=== PATIENT | female | born 1965 | race African-American/Black ===

== ENCOUNTER 2020-05-21 18:23 | Emergency (ER) | payer OTHER, MEDICARE ==
[~2020-05-21] VITALS: Ht 172.7 cm; Wt 97.5 kg
[2020-05-21] MEDS ORDERED: SODIUM CHLORIDE 0.9% 1000ML 1,000 ML IV STA (18:55)
[2020-05-21] MEDS ORDERED: FAMOTIDINE 20 MG/2 ML VIAL IV ONE (19:00)
[2020-05-21] MEDS ORDERED: ONDANSETRON HCL INJ 2MG/ML 2ML 2 MG/ML VIAL IV ONE (19:00)
--- NOTE | 2020-05-21 19:05 | NUR ---
PT STATED SHE WANTED DILAUDID OR KETAMINE INFUSION ONLY, DR GANT INFORMED PT THAT WE DO NOT CARRY THOSE DRUGS IN THIS ER, PT STATED SHE DID NOT WANT TO STAY THAT SHE ONLY WANTED THOSE TWO MEDICATIONS AND THAT SHE WOULD GO SOMEWHERE ELSE. WHEN PT WAS BEING DISCHARGED SHE ASKED IF WE COULD GIVE HER MORPHINE AND BENADRYL, I INFORMED PT THAT SHE HAD ALREADY TAKEN 2 BENADRYL AND 2 NORCO PRIOR TO COMING IN AND THAT IT WAS NOT IN HER BEST INTEREST SINCE SHE IS ALLERGIC TO MORPHINE, PT VERBALIZED UNDERSTANDING.
--- OUTSIDE RECORDS SUMMARY | 2020-05-21 19:30 | XMS REPORT | Clinical Summary ---
Author Author [facility] Organization [facility] Address Unknown Phone Unavailable Care Team Providers Care Pile Driving Setter Name Role Phone Mike Bull MD PCP Allergies Comments Active Allergy Reactions Severity Noted Date Aspirin 08/12/2017 Hypotension Droperidol Other (See 08/12/2017 Comments) Morphine 08/12/2017 Ketorolac 08/12/2017 Medications End Date Status Medication Sig Dispensed Refills Start Date Active lisinopril 0 (PRINIVIL,ZESTRIL) 5 mg 7 tablet Active clonIDINE (CATAPRES-TTS) 0 0.3 mg/24 hr 7 Active clonAZEPAM (KlonoPIN) 0 0.125 MG disintegrating 7 tablet Active LORAZepam (ATIVAN) 1 MG 0 tablet 7 Active metoprolol succinate XL 0 (TOPROL-XL) 100 mg 24 hr 7 tablet Active mirtazapine (REMERON) 30 0 MG tablet 7 Active oxyCODone-acetaminophen 0 (PERCOCET) 10-325 mg per 7 tablet Active potassium chloride 0 (K-DUR) 20 MEQ CR tablet 7 Active promethazine (PHENERGAN) 0 25 MG tablet 7 Active TiZANidine (ZANAFLEX) 6 0 MG capsule 7 Active zolpidem (AMBIEN) 5 MG 0 tablet 7 Active Problems Not on file Social History Date Tobacco Use Types Packs/Day Years Used Never Assessed Sex Assigned at Date Recorded Not on file Industry Job Start Date Occupation Not on file Not on file Not on file Travel End Travel History Travel Start No recent travel history available. Last Filed Vital Signs Not on file Plan of Treatment Health Maintenance Due Date Last Done Comments CERVICAL CANCER SCREENING 1986 BREAST CANCER SCREENING 2015 COLONOSCOPY SCREENING 2015 SHINGLES VACCINES (#1) 2015 INFLUENZA VACCINE 07/01/2020 Procedures Comments Procedure Name Priority Date/Time Associated Diag nosis T3 Routine 10/23/2019 Dyspnea 6:00 PM EAP COUNSELOR HCG QUALITATIVE, SERUM Routine 10/23/2019 Dyspnea SCREEN 6:00 PM EAP COUNSELOR LIPID PANEL Routine 10/23/2019 Dyspnea 6:00 PM EAP COUNSELOR THYROID STIMULATING Routine 10/23/2019 Dyspnea HORMONE 6:00 PM EAP COUNSELOR T4, FREE Routine 10/23/2019 Dyspnea 6:00 PM EAP COUNSELOR PHOSPHORUS LEVEL Routine 10/23/2019 Dyspnea 6:00 PM EAP COUNSELOR THYROID STIMULATING Routine 07/23/2019 Abdominal pain, HORMONE 5:30 PM CDT unspecified abdomin al location LIPID PANEL Routine 07/23/2019 Abdominal pain, 5:30 PM CDT unspecified abdominal location after 05/21/2019 Results * hCG qualitative, serum screen (10/23/2019 6:00 PM EAP COUNSELOR) hCG Negative [place] qualitative, YARSANISM [facility] Specimen Blood Performing Organization Address [facility] Ph one Number [facility] [place] [address] [address] [place], [place] [address] PATHOLOGY AND GENOMIC MEDICINE [place] [facility] [place] [address] [place] [address] [facility] * T3 (10/23/2019 6:00 PM EAP COUNSELOR) T3 110 80 - 200 ng/dL [facility] Specimen Plasma specimen Performing Organization Address City/State/Zipcode Ph one Number [facility] DEPARTMENT OF [address] [place] [address] PATHOLOGY AND GENOMIC MEDICINE [place] [id number] [place] [id number] [facility] * Thyroid stimulating hormone (10/23/2019 6:00 PM EAP COUNSELOR) Only the most recent of 2 results within the time period is included. TSH 1.25 0.27 - 4.20 uIU/mL [facility] Specimen Plasma specimen Performing Organization Address [facility] Ph one Number [facility] [place] [address] [place] [address] PATHOLOGY AND GENOMIC MEDICINE [facility] [address] [address] * T4, free (10/23/2019 6:00 PM EAP COUNSELOR) T4, free 0.83 (L) 0.90 - 1.70 ng/dL [facility] Specimen Plasma specimen Performing Organization Address [facility] Ph one Number [facility] [place] [id number] [place] [address] [place] [address] PATHOLOGY AND GENOMIC MEDICINE [facility] [id number] [place] [address] * Phosphorus level (10/23/2019 6:00 PM EAP COUNSELOR) Phosphorus 4.8 (H) 2.4 - 4.5 mg/dL [facility] Specimen Plasma specimen Performing Organization Address [facility] Ph one Number [facility] [place] [address] [address] [place] [phone] PATHOLOGY AND GENOMIC MEDICINE [address] * Lipid panel (10/23/2019 6:00 PM EAP COUNSELOR) Only the most recent of 2 results within the time period is included. Cholesterol 173 <200 mg/dL [facility] Triglycerides 122 (A) <150 mg/dL [facility] HDL cholesterol 59 >40 mg/dL [facility] LDL cholesterol 97Comment: Result obtained by <100 mg/dL [place] direct LDL measurement [facility] Lipid panel [facility] interpretation Comment: [facility] Total Cholesterol (mg/dL) [facility] <200 Desirable 200-239 Borderline-high >=240 High Triglycerides (mg/dL) <150 Normal 150-199 Borderline-high 200-499 High >=500 Very high HDL Cholesterol (mg/dL) <40 Low (male) <40 Low (female) LDL Cholesterol (mg/dL) <100 Optimal 100-129 Near or above optimal 130-159 Borderline-high 160-189 High >=190 Very high Risk Catergories that modify LDL goals. Risk Catergories LDL goal (mg/dL) CHD and CHD risk equivalent <100 (10-year risk >20%) Multiple (2+) risk factors <130 (10-year risk =<20%) 0-1 risk factors <160 (<10-year risk) Defining levels of lipids in metabolic syndrome Triglycerides >=150 mg/dL HDL Cholesterol Men <40 mg/dL Women <40 mg/dL Non-HDL cholesterol is a second target for therapy in persons with high triglycerides (>=200 mg/dL) Specimen Plasma specimen Performing Organization Address City/State/Zipcode Ph one Number [facility] [place] [address] [place] [address] PATHOLOGY [facility]IC [facility] [place] [address] [place] [address] [facility] after 05/21/2019 Insurance Type Payer Benefit Subscriber ID Effective Phone Address Plan / Dates Group Medicare MEDICARE MEDICARE xxxxxxxxxxx 2007-P MATA, PART A AND resent [place] B PPO [facility] xxxxxxxxx 2016-P THCARE resent COMMERCIAL HMO/POS/PP O Advance Directives For more information, please contact: [phone] Patient Practice Consultant Explanation Type Date Recorded Advance Directives, 08/12/2017 6:10 PM Living Will and Medical Power of Warehouse Receiver
--- OUTSIDE RECORDS SUMMARY | 2020-05-21 19:30 | XMS REPORT | Clinical Summary ---
Author Author [facility] Address Unknown Phone Unavailable Care Team Providers Care Manager Quality Improvement Name Role Phone PCP Unavailable Allergies Comments Active Allergy Reactions Severity Noted Date Rash,itching Aspirin Hives, Rash Low 12/04/2016 Hypotension Droperidol Other (See 12/04/2016 Comments) Rash,itching Ketorolac Hives 12/04/2016 Rash,itching Morphine Hives 08/12/2017 Medications End Date Status Medication Sig Dispensed Refills Start Date Active amLODIPine (NORVASC) 5 MG 0 tablet 9 Active lisinopril Take 20 mg by 0 (PRINIVIL,ZESTRIL) 20 MG mouth 2 (two) 9 tablet times daily . Active cloNIDine HCl (CATAPRES) Take 0.1 mg 0 02/01 0.1 MG tablet by mouth 2 9 (two) times daily . Active metoprolol (TOPROL-XL) 50 Take 50 mg by 0 05/0 4/201 MG 24 hr tablet mouth 2 (two) 9 times daily . Active oxyCODONE (ROXICODONE) 15 Take 15 mg by 0 05/2 2/201 MG immediate release mouth every 6 9 tablet (six) hours as needed . Active LORazepam (ATIVAN) 1 MG Take 1 mg by 0 tablet mouth 3 9 (three) times daily . Active potassium chloride 20 mEq daily . 0 / 0 TbER 9 Active promethazine (PHENERGAN) TK 1 T PO TID 0 02/20 25 MG tablet PRN NV 9 Active spironolactone Take 25 mg by 0 (ALDACTONE) 25 MG tablet mouth 2 (two) 9 times daily . Active tiZANidine (ZANAFLEX) 4 Take 4 mg by 0 02/19/ MG tablet mouth 4 9 (four) times daily . Active lidocaine (LIDODERM) 5 % 0 patch 9 Active clonazePAM (KLONOPIN) 1 Take 1 mg by 0 MG disintegrating tablet mouth 6 9 x/day. Active ergocalciferol (VITAMIN Take 50,000 0 D2) 50,000 unit capsule Units by mouth once a week. Active cholecalciferol, vitamin Take by 0 D3, 2,000 unit Cap mouth. Active LORazepam (ATIVAN) 0.5 MG Take 0.5 mg 0 tablet by mouth 3 (three) times daily. Active cyproheptadine Take by mouth 0 (PERIACTIN) 2 mg/5 mL every 8 syrup (eight) hours. Active diphenhydrAMINE Take 25 mg by 0 (BENADRYL) 25 mg capsule mouth every 6 (six) hours as needed for Itching. Active Problems Problem Noted Date Abnormal liver enzymes 02/26/2019 Last Assessment & Plan: The liver enzymes are abnormal in a mix ed pattern of injury with hepatocellular and cholestatic enzyme e levations. There are wide fluctuations of the liver enzymes noted over the last few months however the function of the liver remains intac t. A work up has rule out chronic hep B/C, preliminary testing otherwise was negative. We will complete the comprehensive work up today. Mixed pat terns of injury raise concern for medication vs autoimmune injuries. Rep eat of the autoimmune panels planned. Liver biopsy is recommended. Risks and benefits were discussed on the liver biopsy which is offered with sedation. The patient has requested general anesthesia. I also reviewed a case report of ketamine induced abnormal liver enzymes which is similar to her case. Of note, there were also bile duct changes noted on this ca se report which there is a focal area of bile duct abnormality noted on this patient in the common hepatic duct with enlargement. All reviewed wi th the patient. We will work to get more accurate information before and 12 hours after the ketamine injections she is receiving to determine if there is a drug reaction to this medication. Immunity status testing 02/26/2019 Last Assessment & Plan: Serological tests will be completed to determine the presence of immunity to hepatitis A and B. If the patient do es not have adequate immunity, we would recommend administration of appro priate vaccination as per CDC guidelines by the primary care provider . Hepatomegaly 02/26/2019 Last Assessment & Plan: Referred at this time with abnormal migdalia er enzymes. Hepatomegaly suggests a chronic liver disease. There was no ev idence of cirrhosis or advanced liver fibrosis. There is also no eviden ce of portal hypertension on the imaging. We offer a free fibroscan wit h her visit today as a noninvasive assessment for fibrosis and fat content . Liver biopsy is recommended for full assessment. Essential hypertension 02/26/2019 Chronic back pain 02/26/2019 Last Assessment & Plan: Counseling done on the likelihood that she may be taken off the ketamine for pain control. I have asked her to follow up with her pain management physician for treatment. Maximum acetam inophen dose in 24 hours should not exceed 2000 mg for now while we continu e her work up for underlying liver disease. 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 In review of case reports, this also can be seen with ketamine. Encounters Care Team Description Date Type Specialty Audelia Brush RN 01/26/2020 Abstract Hepatology Audelia Brush RN 01/23/2020 Abstract Hepatology Audelia Brush RN 01/20/2020 Abstract Hepatology after 05/21/2019 Family History Medical History Relation Name Comments Diabetes Mother Heart disease Mother Obesity Mother Cancer Sister breast Cancer Sister breast Relation Name Status Comments Mother Alive Sister breast Sister breast Alive Social History Date Tobacco Use Types Packs/Day Years Used Never Smoker Smokeless Tobacco: Never Used Alcohol Use Drinks/Week oz/Week Comments No Alcohol Habits Answer Date Recorded How often do you have a drink containing alcohol? Never 02/26/2019 How many drinks containing alcohol do you have on No t asked a typical day when you are drinking? How often do you have six or more drinks on one Not asked occasion? Sex Assigned at Date Recorded Not on file Industry Job Start Date Occupation Not on file Not on file Not on file Travel End Travel History Travel Start No recent travel history available. Last Filed Vital Signs Not on file Plan of Treatment Health Maintenance Due Date Last Done Comments BREAST CANCER SCREENING 1965 COLON CANCER SCREENING 1965 COLONOSCOPY MEDICARE ANNUAL WELLNESS 03/02/2008 (YEAR 2 or FIRST YEAR if no IPPE) INFLUENZA VACCINE (#1) 2020 LIPID PANEL 10/23/2022 10/23/2019, 017 Results Not on fileafter 05/21/2019 Insurance Payer Benefit Subscriber ID Type Phone Address Plan / Group [employer] - MGD UNITED HMO xxxxxxxxx HMO/PO S CARE POS SELECT CHOICE MEDICARE MEDICARE A xxxxxxxxxxx Medicare B [id number] Advance Directives For more information, please contact: [facility] [address] [place] [address] Date Inactivated Comments Code Status Date Activated 03/12/2019 10:22 PM Full Code 03/12/2019 4:49 PM This code status was determined by: Patient
--- OUTSIDE RECORDS SUMMARY | 2020-05-21 19:31 | XMS REPORT | Continuity of Care Document ---
Author Author Lyndon Sarnova, ANGELA Cline [employer] Address Unknown Phone Unavailable Care Team Providers Care Outpatient Psychiatrist Name Role Phone [employer] Unavailable Un available Problems Problem Status Onset Date Classification Date Reported Comments Source BACK PAIN Active 06/08/2019 [facility] SHORTNESS OF BREATH Active 03/25/2018 [facility] PALPITATIONS/HYPOKALEMIA/DYSPNEA Active 03/25/2018 [facility] CHEST PAIN Active 02/17/2018 [facility] HEART PALPITATIONS Active 02/17/2018 [facility] SYNCOPE Active 07/11/2017 [facility] VOMITING Active 05/18/2017 [facility] INTRACTABLE VOMITING Active 04/01/2017 [facility] CHEST PAIN VS EPIGASTRIC PAIN, HYPERTENS Active 12/27/2016 [facility] Wound packing material, device (physical object) Active 08/24/2010 [facility] [place] IV ASSESS-DIFFICULT IV START/BLOOD DRAWN(Confirmed) Active 10/01/1996 Problem 10/09/2014 [facility] Anemia (disorder) Active Problem 06/10/2019 [facility] [place],[facility] Chronic pain (finding) Resolved Problem 06/10/2019 [facility] Endocarditis (disorder) [facility] Problem 06/10/[facility] to organism (event) R esolved Problem 07/2019 [facility] Gastroparesis (disorder) Resol pilar Problem 07/2019 [facility] Hypertensive disorder, systemic arterial (disorder) Resolved Problem 06/10/2019 [facility] Irregular heart beat (finding) Resolved Problem 07/2019 [facility] Mitral valve prolapse (disorder) Active Problem 07/2019 [facility] 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) Active Problem 06/10/2019 [facility] [place],[facility] Wound care (procedure) Active Problem 06/10/2019 [facility] [place] Palpitations 02/22/2018 [facility] CHEST PAIN, UNSPECIFIED Active [facility] EPIGASTRIC PAIN Active [facility] NAUSEA WITH VOMITING, UNSPECIFIED Active [facility] VOMITING, UNSPECIFIED Active [facility] SYNCOPE AND COLLAPSE Active [facility] PALPITATIONS Active [facility] Medications Medication Details Route Status Patient Instructions Ordering Provider Order Date Source potassium chloride 20 mEq oral tablet, extended releas e Notes: (Same as: K-Dur 20) "Do Not Crush" For patients unable to swallow tablet, dissolve in one half glass of water. Allow about 2 minutes for the tablets to disintegrate. Stir before giving to prepare slurry and administer. Please exclude Patients with feeding tube less than 14 [place] (Dobhoff, J-tube etc) and pediatric and patients. With food and full glass of water Inactive 03/27/2018 [facility] Ativan Notes: (Same as: Ativan) Inactive 03/26/2018 [facility] heparin flush Notes: (Same as: Heparin Lock Flush) Inactive 03/26/2018 [facility] sodium chloride Notes: preserv ative free. Inactive 03/26/2018 [facility] Morphine Notes: (Same as:MORPh ine Sulfate) Inactive 03/26/2018 [facility] Morphine 12 mg, Route: PO, Taqueria g form: SOLN, Q6H, Dosing Weight 62.727, kg, PRN, Start date: 03/26/18 11:19:00 CDT, Duration: 1 day, Stop date: 03/27/18 11:18:00 CDT, Pain Score 8-10 Inactive 03/26/2018 [facility] Oxycodone Hydrochloride 5 MG Oral Tablet Notes: (Same as: Roxicodone) Inactive 03/26/2018 [facility] potassium chloride 20 mEq oral tablet, extended releas e 20 mEq = 1 tab, PO, Q12H, # 60 tab, 0 Refill(s), Pharmacy: [facility] [id number] Active 03/26/2018 [facility] pantoprazole 40 MG Enteric Coated Tablet [Protonix] 40 mg = 1 tab, PO, Daily, # 30 tab, 0 Refill(s), Pharmacy: [facility] [id number] Active 03/26/2018 [facility] ondansetron 4 mg oral tablet 4 mg = 1 tab, PO, Q6H, PRN Nausea & Vomiting, # 20 tab, 0 Refill(s), Pharmacy: [facility] [id number] Active 03/26/2018 [facility] Ambien Notes: (Same As: Ambien) Inactive 03/26/2018 [facility] Protonix Notes: Tablet should not be chewed or crushed. (Same as: Protonix) Inactive 03/26/2018 [facility] 24 HR Metoprolol Tartrate 200 MG Extende d Release Tablet [Toprol] Notes: (Same as: Toprol XL) May split t ab, but do not crush. Inactive 03/26/2018 [facility] Lisinopril Notes: (Same as: Pr inivil, Zestril) Inactive 03/26/2018 [facility] Klonopin Notes: (Same As: Klon oPIN) Inactive 03/26/2018 [facility] SENOKOT-S Notes: (Same as Seno vijay-S) Equiv. to Judie- Colace. Inactive 03/26/2018 [facility] Phenergan Notes: Do not give I V push. (Same as: Phenergan) Inactive 03/26/2018 [facility] Zanaflex Notes: (Same As: Oneil flex) Inactive 03/26/2018 [facility] 168 HR Clonidine 0.0125 MG/HR Transdermal Patch Notes: Patch delivers 0.3 mg/24 hours; Patch is applied weekly. [id number]. "Remove old patch before application of new patch" Inactive 03/26/2018 [facility] Lovenox Notes: (Same as: Loven ox) Inactive 03/26/2018 [facility] Klonopin Notes: (Same As: Klon oPIN) No Longer Active 03/26/2018 [facility] Benadryl Notes: (Same as: Jakin dryl) No Longer Active 03/26/2018 [facility] Morphine Notes: (Same as:MORPh ine Sulfate) No Longer Active 03/26/2018 [facility] Acetaminophen Notes: Do not ex ceed 4 gm/day. (Same as: Tylenol) No Longer Active 03/26/2018 [facility] Acetaminophen 325 MG / Hydrocodone Kiah trate 5 MG Oral Tablet Notes: (Same as: [place] 325/5) Do not ex ceed 4gm/day of acetaminophen. No Longer Active 03/26/2018 [facility] Ondansetron Notes: (Same as: Dereje bowden) No Longer Active 03/26/2018 [facility] Diphenhydramine 25 mg, Route: IVP, ONCE, Dosing Weight 62.727, kg, Priority: STAT, Start date: 03/25/18 20:05:00 CDT, Stop date: 03/25/18 20:05:00 CDT Inactive 03/26/2018 [facility] Morphine 2 mg, Route: IVP, ONC E, Dosing Weight 62.727, kg, Priority: STAT, Start date: 03/25/18 20:05:00 CDT, Stop date: 03/25/18 20:05:00 CDT Inactive 03/26/2018 [facility] Hydralazine Notes: (Same as: A presoline) Push over 5 minutes Inactive 03/25/2018 [facility] Phenergan Notes: Do not give I V push. (Same as: Phenergan) Inactive 03/25/2018 [facility] tizanidine 6 mg, Route: PO, ON CE, Dosing Weight 62.727, kg, Start date: 03/25/18 18:29:00 CDT, Stop date: 03/25/18 18:29:00 CDT Inactive 03/25/2018 [facility] Fentanyl 50 microgram, Route: IV, ONCE, Dosing Weight 62.727, kg, Start date: 03/25/18 18:20:00 CDT, Stop date: 03/25/18 18:20:00 CDT Inactive 03/25/2018 [facility] Fentanyl 50 microgram, Route: IV, ONCE, Dosing Weight 62.727, kg, Start date: 03/25/18 18:09:00 CDT, Stop date: 03/25/18 18:09:00 CDT Inactive 03/25/2018 [facility] Hydralazine 5 mg, Route: IV, O NCE, Dosing Weight 62.727, kg, Start date: 03/25/18 18:05:00 CDT, Stop date: 03/25/18 18:05:00 CDT Inactive 03/25/2018 [facility] Lisinopril 20 mg, Route: PO, D rug form: TAB, ONCE, Dosing Weight 62.727, kg, Start date: 03/25/18 18:05:00 CDT, Stop date: 03/25/18 18:05:00 CDT Inactive 03/25/2018 [facility] Acetaminophen 325 MG / Hydrocodone Kiah trate 10 MG Oral Tablet [[place] 10/325] 1 tab, Route: PO, Dosing Weight 62.727, kg, ONCE, Start date: 03/25/18 18:05:00 CDT, Stop date: 03/25/18 18:05:00 CDT Inactive 03/25/2018 [facility] Fentanyl 50 microgram, Route: IV, ONCE, Dosing Weight 62.727, kg, Start date: 03/25/18 17:29:00 CDT, Stop date: 03/25/18 17:29:00 CDT Inactive 03/25/2018 [facility] Fentanyl 50 microgram, Route: IVP, ONCE, Dosing Weight 62.727, kg, Priority: STAT, Start date: 03/25/18 16:32:00 CDT, Stop date: 03/25/18 16:32:00 CDT Inactive 03/25/2018 [facility] Potassium Chloride 1.33 MEQ/ML Oral Solution 20 mEq, 15 mL, Route: PO, Drug form: LIQ, ONCE, Dosing Weight 62.727, kg, Priority: STAT, Start date: 03/25/18 16:32:00 CDT, Stop date: 03/25/18 16:32:00 CDT Inactive 03/25/2018 [facility] Phenergan 12.5 mg, Route: IVPB , ONCE, Dosing Weight 62.727, kg, Priority: STAT, Start date: 03/25/18 16:31:00 CDT, Stop date: 03/25/18 16:31:00 CDT Inactive 03/25/2018 [facility] Zofran ODT 4 mg, Route: PO, Dr ug form: TABDIS, ONCE, Dosing Weight 62.727, kg, Priority: STAT, Start date: 03/25/18 16:11:00 CDT, Stop date: 03/25/18 16:11:00 CDT Inactive 03/25/2018 [facility] NS (Bolus) IV 1,000 mL, 1,000 ml/hr, Infuse Over: 1 hr, Route: IV, ONCE, Priority: STAT, Dosing Weight 62.727 kg, Start date: 03/25/18 16:10:00 CDT, Stop date: 03/25/18 16:10:00 CDT Inactive 03/25/2018 [facility] metoprolol extended release 20 0 mg, Route: PO, Drug form: ERTAB, ONCE, Start date: 03/25/18 15:48:00 CDT, Stop date: 03/25/18 15:48:00 CDT Inactive 03/25/2018 [facility] potassium chloride 20 mEq oral tablet, extended releas e Notes: (Same as: K-Dur 20) "Do Not Crush" For patients unable to swallow tablet, dissolve in one half glass of water. Allow about 2 minutes for the tablets to disintegrate. Stir before giving to prepare slurry and administer. Please exclude Patients with feeding tube less than 14 [place] (Dobhoff, J-tube etc) and pediatric and patients. With food and full glass of water Inactive 02/20/2018 [facility] heparin flush Notes: (Same as: Heparin Lock Flush) Inactive 02/19/2018 [facility] Thiamine Notes: (Same As: Audelia min B1) Inactive 02/19/2018 [facility] potassium chloride 20 mEq oral tablet, extended releas e 20 mEq = 1 tab, PO, Q12H, # 60 tab, 0 Refill(s), Pharmacy: [facility] [place] [id number] Active 02/19/2018 [facility] 168 HR Clonidine 0.0125 MG/HR Transdermal Patch Notes: Patch delivers 0.3 mg/24 hours; Patch is applied weekly. [id number]. "Remove old patch before application of new patch" Inactive 02/19/2018 [facility] pantoprazole 40 MG Enteric Coated Tablet [Protonix] 40 mg = 1 tab, PO, Daily, # 30 tab, 0 Refill(s), Pharmacy: [place] [id number] Active 02/19/2018 [facility] Promethazine Hydrochloride 12.5 MG Oral Tablet [Phenergan] 12.5 mg, PO, Q6H, PRN Nausea & Vomiting, # 28 tab, 0 Refill(s), Pharmacy: [place] [id number] Active 02/19/2018 [facility] thiamine 100 mg oral tablet 10 0 mg, PO, Daily, # 100 tab, 0 Refill(s), Pharmacy: [place] [id number] No Longer Active 02/19/2018 [facility] Erythromycin Ethylsuccinate 40 MG/ML Oral Suspension 200 mg = 5 mL, PO, BID, # 300 mL, 0 Refill(s), Pharmacy: [place] [id number] No Longer Active 02/19/2018 [facility] Phenergan Notes: (Same as: Phe nergan) Inactive 02/19/2018 [facility] Pepcid Notes: (Same as: Pepcid) Inactive 02/19/2018 [facility] Lisinopril Notes: (Same as: Pr inivil, Zestril) Inactive 02/19/2018 [facility] Protonix Notes: Tablet should not be chewed or crushed. (Same as: Protonix) No Longer Active 02/19/2018 [facility] metoprolol tartrate Notes: (Sa me as: Lopressor) No Longer Active 02/19/2018 [facility] Erythromycin Notes: (Same as: E.E.S.-400) No Longer Active 02/19/2018 [facility] Pepcid Notes: (Same as: Pepcid ) Can be dilute in 5-10cc NS IVP: Slow IV push over at least 2 minutes. No Longer Active 02/19/2018 [facility] Klonopin Notes: (Same As: Klon oPIN) No Longer Active 02/19/2018 [facility] Reglan Notes: (Same as: Reglan) No Longer Active 02/18/2018 [facility] Potassium Chloride Notes: MUST be Diluted before use (Same as: KCl) MEDICATION WASTE Product Size: 40 mEq Product Wasted: ___ mEq Inactive 02/18/2018 [facility] Klonopin Notes: (Same As: Klon oPIN) No Longer Active 02/18/2018 [facility] Zanaflex Notes: (Same As: Oneil flex) No Longer Active 02/18/2018 [facility] D5W 1/2NS + KCL 20mEq/L 1000ml (Premix) 1,000 mL Notes: PREMIX IV - Do Not Alter WASTE: F/P - Sink; E - Municipal Trash Bin No Longer Active 02/18/2018 [facility] Potassium Chloride Notes: MUST be Diluted before use (Same as: KCl) MEDICATION WASTE Product Size: 40 mEq Product Wasted: ___ mEq Inactive 02/18/2018 [facility] Benadryl Notes: (Same as: Jakin dryl) No Longer Active 02/18/2018 [facility] Phenergan Notes: Do not give I V push. (Same as: Phenergan) No Longer Active 02/18/2018 [facility] zolpidem Notes: (Same As: Ambi en) No Longer Active 02/18/2018 [facility] Reglan Notes: (Same as: Reglan) No Longer Active 02/18/2018 [facility] Benadryl 25 mg, 1 tab, Route: PO, Drug form: TAB, Q6H, Dosing Weight 67.273, kg, PRN as needed for itching, Start date: 02/18/18 9:30:00 CDT, Duration: 30 day, Stop date: 03/20/18 9:29:00 CDT No Longer Active 02/18/2018 [facility] Morphine 2 mg, 1 mL, Route: IV , Drug form: SOLN, Q4H, Dosing Weight 67.273, kg, PRN Pain Score 6-10, Start date: 02/18/18 9:30:00 CDT, Stop date: 03/20/18 9:29:00 CDT No Longer Active 02/18/2018 [facility] Ambien 10 mg, Route: PO, Drug form: TAB, Bedtime, Dosing Weight 67.273, kg, PRN Sleep, Start date: 02/18/18 9:15:00 CDT, Duration: 30 day, Stop date: 03/20/18 9:14:00 CDT Inactive 02/18/2018 [facility] Saline Flush 0.9% Notes: (Same as: BD Posiflush) No Longer Active 02/18/2018 [facility] K-Dur 20 Notes: (Same as: K-Du r 20) "Do Not Crush" For patients unable to swallow tablet, dissolve in one half glass of water. Allow about 2 minutes for the tablets to disintegrate. Stir before giving to prepare slurry and administer. Please exclude Patients with feeding tube less than 14 [place] (Dobhoff, J-tube etc) and pediatric and patients. With food and full glass of water Inactive 02/18/2018 [facility] Potassium Chloride 40 mEq, Rou te: IV, ONCE, Dosing Weight 67.273, kg, Start date: 02/18/18 2:16:00 CDT, Stop date: 02/18/18 2:16:00 CDT Inactive 02/18/2018 [facility] Benadryl Notes: (Same as: Jakin dryl) Inactive 02/18/2018 [facility] Phenergan Notes: Do not give I V push. (Same as: Phenergan) Inactive 02/18/2018 [facility] morphine Sulfate 2 mg, 1 mL, R oute: IVP, Drug form: SOLN, ONCE, Dosing Weight 67.273, kg, Start date: 02/18/18 0:32:00 CDT, Stop date: 02/18/18 0:32:00 CDT Inactive 02/18/2018 [facility] Morphine Notes: Preservative f ree. (Same as: Morphine Sulfate-PF) Inactive 02/18/2018 [facility] NS (Bolus) IV 500 mL, 500 ml/h r, Infuse Over: 1 hr, Route: IV, 500, Drug form: INJ, ONCE, Priority: STAT, Dosing Weight 67.273 kg, Start date: 02/17/18 23:31:00 CDT, Stop date: 02/17/18 23:31:00 CDT No Longer Active 02/18/2018 [facility] Magnesium Oxide Notes: (Same a s: Mag-Ox 400) Magnesium oxide [id number] elemental magnesium Dose=____mg magnesium oxide (___mg elemental magnesium) No Longer Active 02/18/2018 [facility] Magnesium Sulfate Notes: WASTE : F/P - Sink; E - Municipal Trash Bin No Longer Active 02/18/2018 [facility] Calcium Gluconate Notes: WASTE : F/P - Sink; E - Municipal Trash Bin No Longer Active 02/18/2018 [facility] potassium phosphate Notes: ([facility] as: K Phosphate.) 1 mMol phoshate has 1.47 mEq potassium Infuse over 4 hours No Longer Active 02/18/2018 [facility] sodium phosphate 15 mmol, 5 mL , Route: IVPB, PRN, Dosing Weight 67.273, kg, PRN Abnormal Lab Result, For NON-ICU Patients Only., Start date: 02/17/18 23:28:00 CDT, Duration: 30 day, Stop date: 03/19/18 23:27:00 CDT No Longer Active 02/18/2018 [facility] potassium phosphate-sodium phosphate 250 mg-280 mg-160 mg oral powder for reconstitution Notes: (Same as: Phos-NaK) Each 1.5 gm pkt has 250mg phosphorous. Mix w/2.5oz water and stir. No Longer Active 02/18/2018 [facility] Potassium Chloride Notes: (Godwin e as: Potassium Chloride) No Longer Active 02/18/2018 [facility] Saline Flush 0.9% Notes: (Same as: BD Posiflush) No Longer Active 02/18/2018 [facility] Sodium Chloride 0.9% IV 1,000 mL 1,000 mL, Rate: 100 ml/hr, Infuse over: 10 hr, Route: IV, Dosing Weight 67.273 kg, Total Volume: 1,000, Start date: 02/17/18 23:26:00 CDT, Duration: 30 day, Stop date: 03/19/18 23:25:00 CDT, 1.81, m2 No Longer Active 02/18/2018 [facility] Nitroglycerin Notes: (Same as: Nitroquick, Nitrostat) "Do Not Crush" Sublingual tablet No Longer Active 02/18/2018 [facility] Ondansetron Notes: (Same as: Z ofran) No Longer Active 02/18/2018 [facility] metoprolol tartrate Notes: (Sa me as: Lopressor) No Longer Active 02/18/2018 [facility] Zolpidem tartrate 10 MG Oral Tablet [Ambien] 10 mg = 1 tab, PO, Bedtime, PRN for sleep, 0 Refill(s) Active 02/18/2018 [facility] Clonazepam 0.5 MG Oral Tablet [Klonopin] 1 mg = 2 tab, PO, Bedtime, # 30 tab, 0 Refill(s) Active 02/18/2018 [facility] oxyCODONE 15 mg oral tablet 15 mg = 1 tab, PO, Q6H, PRN Pain, 0 Refill(s) Active 02/18/2018 [facility] Benadryl 25 mg, Route: IVP, ON CE, Dosing Weight 63.636, kg, Priority: STAT, Start date: 02/17/18 18:53:00 CDT, Stop date: 02/17/18 18:53:00 CDT Inactive 02/17/2018 [facility] Morphine 4 mg, Route: IVP, ONC E, Dosing Weight 63.636, kg, Priority: STAT, Start date: 02/17/18 18:52:00 CDT, Stop date: 02/17/18 18:52:00 CDT Inactive 02/17/2018 [facility] Phenergan 25 mg, Route: IM, ON CE, Dosing Weight 63.636, kg, Priority: STAT, Start date: 02/17/18 18:52:00 CDT, Stop date: 02/17/18 18:52:00 CDT Inactive 02/17/2018 [facility] Potassium Chloride 1.33 MEQ/ML Oral Solution 40 mEq, 15 mL, Route: PO, Drug form: LIQ, ONCE, Dosing Weight 63.636, kg, Priority: STAT, Start date: 02/17/18 17:26:00 CDT, Stop date: 02/17/18 17:26:00 CDT Inactive 02/17/2018 [facility] Morphine 4 mg, Route: IVP, ONC E, Dosing Weight 63.636, kg, Priority: STAT, Start date: 02/17/18 17:05:00 CDT, Stop date: 02/17/18 17:05:00 CDT Inactive 02/17/2018 [facility] Benadryl 25 mg, Route: IVP, ON CE, Dosing Weight 63.636, kg, Priority: STAT, Start date: 02/17/18 17:04:00 CDT, Stop date: 02/17/18 17:04:00 CDT Inactive 02/17/2018 [facility] Fentanyl Notes: (Same as: Subl imaze) Preservative free. Inactive 02/17/2018 [facility] Promethazine 12.5 mg, Route: I M, ONCE, Dosing Weight 63.636, kg, Priority: STAT, Start date: 02/17/18 17:01:00 CDT, Stop date: 02/17/18 17:01:00 CDT Inactive 02/17/2018 [facility] Acetaminophen 325 MG / Hydrocodone Kiah trate 10 MG Oral Tablet [[place] 10/325] 1 tab, Route: PO, Drug Form: TAB, Dosing Weight 63.636, kg, ONCE, STAT, Start date: 02/17/18 17:00:00 CDT, Stop date: 02/17/18 17:00:00 CDT Inactive 02/17/2018 [facility] Metoclopramide 10 mg, Route: I [employer], Drug form: INJ, ONCE, Dosing Weight 63.636, kg, Priority: STAT, Start date: 02/17/18 17:00:00 CDT, Stop date: 02/17/18 17:00:00 CDT Inactive 02/17/2018 [facility] Sodium Chloride 0.9% (Bolus) IV 1,000 mL, 1000 ml/hr, Infuse Over: 1 hr, Route: IV, 1,000, Drug form: INJ, ONCE, Priority: STAT, Dosing Weight 63.636 kg, Start date: 02/17/18 16:15:00 CDT, Stop date: 02/17/18 16:15:00 CDT Inactive 02/17/2018 [facility] Saline Flush 0.9% Notes: (Same as: BD Posiflush) No Longer Active 02/17/2018 [facility] Protonix Notes: Tablet should not be chewed or crushed. (Same as: Protonix) No Longer Active 07/13/2017 [facility] Trazodone Hydrochloride 50 MG Oral Tablet Notes: (Same As: Desyrel) Inactive 07/13/2017 [facility] heparin flush Notes: (Same as: Heparin Lock Flush) Inactive 07/12/2017 [facility] sodium chloride Notes: preserv ative free. Inactive 07/12/2017 [facility] sodium chloride Notes: preserv ative free. Inactive 07/12/2017 [facility] Metoclopramide 5 MG Oral Tablet [Reglan] 5 mg = 1 tab, PO, Before Meals & Bedtime, X 14 day, # 56 tab, 0 Refill(s), Pharmacy: [facility] [place] [id number] Active 07/12/2017 [facility] Zanaflex Notes: (Same As: Oneil flex) Inactive 07/12/2017 [facility] Potassium Chloride Notes: (Godwin e as: KCL) Infuse no faster than 10 mEq/hr if given peripherally. Inactive 07/12/2017 [facility] Metoclopramide 5 MG Oral Tablet [Reglan] Notes: (Same as: Reglan) Take 30 min before meals Inactive 07/12/2017 [facility] metoprolol extended release No may: (Same as: Toprol XL) Do Not Crush Inactive 07/12/2017 [facility] Lisinopril Notes: (Same as: Pr inivil, Zestril) Inactive 07/12/2017 [facility] Tylenol Notes: Do not exceed 4 gm/day. (Same as: Tylenol) Inactive 07/12/2017 [facility] Roxicodone Notes: (Same as: Ro xicodone) Inactive 07/12/2017 [facility] Oxycontin Notes: Do not crush or chew. 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 07/12/2017 [facility] Ativan Notes: (Same as: Ativan) Inactive 07/12/2017 [facility] Hydromorphone 1 mg, 1 mL, Rout e: IVP, Drug form: INJ, ONCE, Dosing Weight 65, kg, Priority: STAT, Start date: 07/12/17 9:15:00 CDT, Stop date: 07/12/17 9:15:00 CDT Inactive 07/12/2017 [facility] influenza virus vaccine, inactivated Notes: (Same as: Fluzone Quadrivalent, Fluarix Quadrivalent) For 3 years of age and older (0.5 mL IM) Shake well before use Inactive 07/12/2017 [facility] Dilaudid 0.5 mg, 0.5 mL, Route : IVP, Drug form: INJ, Q3H, Dosing Weight 65, kg, PRN Pain Score 7-10, Start date: 07/12/17 0:43:00 CDT, Duration: 30 day, Stop date: 08/11/17 0:42:00 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 Inactive 07/12/2017 [facility] Calcium Gluconate Notes: WASTE : F/P - Sink; E - Municipal Trash Bin Inactive 07/12/2017 [facility] sodium phosphate 30 mmol, 10 m L, Route: IVPB, PRN, Dosing Weight 65, kg, PRN Abnormal Lab Result, For NON-ICU Patients Only., Start date: 07/12/17 0:42:00 CDT, Duration: 30 day, Stop date: 08/10/17 23:41:00 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 Inactive 07/12/2017 [facility] Magnesium Oxide Notes: (Same a s: Mag-Ox 400) Magnesium oxide [id number] elemental magnesium Dose=____mg magnesium oxide (___mg elemental magnesium) Inactive 07/12/2017 [facility] Magnesium Sulfate Notes: WASTE : F/P - Sink; E - Municipal Trash Bin Inactive 07/12/2017 [facility] Potassium Chloride Notes: ([facility] e as: Potassium Chloride) Inactive 07/12/2017 [facility] potassium phosphate Notes: ([facility] as: K Phosphate.) 1 mMol phoshate has 1.47 mEq potassium Infuse over 4 hours Inactive 07/12/2017 [facility] potassium phosphate-sodium phosphate 250 mg-280 mg-160 mg oral powder for reconstitution Notes: (Same as: Phos-NaK) Each 1.5 gm pkt has 250mg phosphorous. Mix w/2.5oz water and stir. Inactive 07/12/2017 [facility] Saline Flush 0.9% Notes: (Same as: BD Posiflush) Inactive 07/12/2017 [facility] sodium chloride 0.9% 1000 ml INJ 1,000 mL 1,000 mL, Rate: 150 ml/hr, Infuse over: 6.7 hr, Route: IV, Dosing Weight 65 kg, Total Volume: 1,000, Start date: 07/12/17 0:36:00 CDT, Stop date: 07/13/17 2:30:00 CDT Inactive 07/12/2017 [facility] Acetaminophen 325 MG / Hydrocodone Kiah trate 5 MG Oral Tablet Notes: (Same as: [place] 325/5) Do not ex ceed 4gm/day of acetaminophen. Inactive 07/12/2017 [facility] Ondansetron Notes: (Same as: Dereje bowden) MEDICATION WASTE Product Size: 4 mg Product Wasted: ___ mg Inactive 07/12/2017 [facility] Remeron Notes: (Same as:Remero n) Inactive 05/20/2017 [facility] metoprolol tartrate Notes: ([facility] as: Toprol XL) May split tab, but do not crush. Inactive 05/20/2017 [facility] heparin Notes: (Same as: Hepar in Lock Flush) Inactive 05/19/2017 [facility] Protonix 40 mg, 1 tab, Route: PO, Drug form: ECTAB, Before Dinner, Dosing Weight 61.364, kg, Start date: 05/19/17 16:30:00 CDT, Duration: 30 day, Stop date: 06/17/17 16:30:00 CDT Inactive 05/19/2017 [facility] Zanaflex Notes: (Same As: Oneil flex) Inactive 05/19/2017 [facility] Spironolactone Notes: (Same As : Aldactone) Inactive 05/19/2017 [facility] Lisinopril Notes: (Same as: Pr inivil, Zestril) Inactive 05/19/2017 [facility] Norvasc Notes: (Same as: Norva sc) Inactive 05/19/2017 [facility] 168 HR Clonidine 0.0125 MG/HR Transdermal Patch 1 patch, Route: TOP, Drug Form: ERFILM, Dosing Weight 61.364, kg, qWeek, Start date: 05/19/17 13:39:00 CDT, Duration: 30 day, Stop date: 06/16/17 9:00:00 CDT Inactive 05/19/2017 [facility] Ativan Notes: (Same as: Ativan) Inactive 05/19/2017 [facility] Potassium Chloride Notes: Infu se at a rate of 10 mEq/hr. (Same as: KCL) Inactive 05/19/2017 [facility] potassium chloride 20 mEq oral tablet, extended releas e Notes: (Same as: K-Dur 20) "Do Not Crush" With food and full glass of water Inactive 05/19/2017 [facility] Potassium Chloride Notes: ([facility] e as: K-Dur 20) "Do Not Crush" With food and full glass of water Inactive 05/19/2017 [facility] Phenergan Notes: Do not give I V push. (Same as: Phenergan) No Longer Active 05/18/2017 [facility] Lorazepam 1 MG Oral Tablet [Ativan] 1 mg = 1 tab, PO, TID, PRN as needed for anxiety, 0 Refill(s) Active 05/18/2017 [facility] Spironolactone 12.5 mg, PO, Da erlinda, # 60 tab, 0 Refill(s) Active 05/18/2017 [facility] Acetaminophen 325 MG / Oxycodone Hydroch loride 10 MG Oral Tablet [Percocet 10/325] 1 tab, PO, Q8H, PRN Pain Score 6-10, 0 R efill(s) Active 05/18/2017 [facility] Amlodipine 10 MG Oral Tablet [Norvasc] 10 mg = 1 tab, PO, Daily, 0 Refill(s) Active 05/18/2017 [facility] Mirtazapine 30 MG Oral Tablet [Remeron] 30 mg = 1 tab, PO, Bedtime, 0 Refill(s) Activ e 05/18/2017 [facility] Hydrochlorothiazide See Instru ctions, 12.5 mg PO twice week, 0 Refill(s) Active 05/18/2017 [facility] Oxycontin 20 mg, PO, Q12H, PRN Pain Score 6-10, 0 Refill(s) Active 05/18/2017 [facility] sodium chloride 0.9% 1000 ml INJ 1,000 mL 1,000 mL, Rate: 125 ml/hr, Infuse over: 8 hr, Route: IV, Dosing Weight 61.364 kg, Total Volume: 1,000, Start date: 05/18/17 16:34:00 CDT, Duration: 30 day, Stop date: 06/17/17 16:33:00 CDT No Longe r Active 05/18/2017 [facility] Ondansetron Notes: (Same as: Dereje bowden) MEDICATION WASTE Product Size: 4 mg Product Wasted: ___ mg No Longer Active 05/18/2017 [facility] Acetaminophen 325 MG / Hydrocodone Kiah trate 5 MG Oral Tablet Notes: (Same as: [place] 325/5) Do not ex ceed 4gm/day of acetaminophen. No Longer Active 05/18/2017 [facility] Acetaminophen Notes: Max aceta minophen = 4000 mg/day (4 gm/day). (Same as: Tylenol) N o Longer Active 05/18/2017 [facility] Dilaudid 1 mg, 1 mL, Route: IV P, Drug form: INJ, Q4H, Dosing Weight 61.364, kg, PRN Pain Score 7-10, Start date: 05/18/17 16:34:00 CDT, Duration: 30 day, Stop date: 06/17/17 16:33:00 CDT No Longer Active 05/18/2017 [facility] sodium chloride Notes: preserv ative free. Inactive 04/04/2017 [facility] heparin flush Notes: (Same as: Heparin Lock Flush) Inactive 04/04/2017 [facility] potassium chloride Notes: Infu se at a rate of 10 mEq/hr. (Same as: KCL) Inactive 04/03/2017 [facility] potassium chloride Notes: ([facility] e as: K-Dur 20) "Do Not Crush" With food and full glass of water Inactive 04/03/2017 [facility] potassium chloride Notes: Infu se at a rate of 10 mEq/hr. (Same as: KCL) Inactive 04/02/2017 [facility] potassium chloride 20 mEq, Rou te: IV, ONCE, Dosing Weight 61.364, kg, Start date: 04/02/17 11:03:00 CDT, Stop date: 04/02/17 11:03:00 CDT Inactive 04/02/2017 [facility] potassium chloride Notes: ([facility]win e as: K-Dur 20) "Do Not Crush" With food and full glass of water Inactive 04/02/2017 [facility] Trazodone Hydrochloride 50 MG Oral Tablet Notes: (Same As: Renny) No Longer Active 04/02/2017 [facility] Dilaudid 1 mg, 1 mL, Route: IV P, Drug form: INJ, Q3H, Dosing Weight 61.364, kg, PRN Pain Score 7-10, Start date: 04/01/17 16:18:00 CDT, Duration: 30 day, Stop date: 05/01/17 16:17:00 CDT No Longer Active 04/01/2017 [facility] sodium chloride 0.9% 1000 ml INJ 1,000 mL 1,000 mL, Rate: 100 ml/hr, Infuse over: 10 hr, Route: IV, Dosing Weight 61.364 kg, Total Volume: 1,000, Start date: 04/01/17 14:31:00 CDT, Duration: 30 day, Stop date: 05/01/17 14:30:00 CDT No Longe r Active 04/01/2017 [facility] Sodium Chloride 0.154 MEQ/ML Injectable Solution 984.8 mL, Rate: 100 ml/hr, Infuse over: 9.8 hr, Route: IV, Dosing Weight 61.364 kg, Total Volume: 984.8, Start date: 04/01/17 14:03:00 CDT, Duration: 1 doses or times, Stop date: 04/01/17 23:50:00 CDT Inactive 04/01/2017 [facility] Dilaudid 1 mg, 1 mL, Route: IV P, Drug form: INJ, Q2H, Dosing Weight 61.364, kg, PRN Pain Score 7-10, Start date: 04/01/17 13:55:00 CDT, Duration: 30 day, Stop date: 05/01/17 13:54:00 CDT Inactive 04/01/2017 [facility] Sodium Chloride 0.154 MEQ/ML Injectable Solution 984.8 mL, Rate: 100 ml/hr, Infuse over: 10 hr, Route: IV, Dosing Weight 61.364 kg, Total Volume: 1,000, Priority: NOW, Start date: 04/01/17 13:42:00 CDT, Duration: 3 doses or times, Stop date: 04/02/17 19:41:00 CDT No Longer Active 04/01/2017 [facility] Zanaflex Notes: (Same As: Oneil flex) No Longer Active 04/01/2017 [facility] Protonix Notes: Tablet should not be chewed or crushed. (Same as: Protonix) No Longer Active 04/01/2017 [facility] Phenergan Notes: (Same as: Phe nergan) No Longer Active 04/01/2017 [facility] Lisinopril Notes: (Same as: Pr inivil, Zestril) No Longer Active 04/01/2017 [facility] metoprolol tartrate Notes: (Sa me as: Toprol XL) May split tab, but do not crush. N o Longer Active 04/01/2017 [facility] digoxin 125 mcg (0.125 mg) oral tablet Notes: Take on an Empty Stomach (Same as: Lanoxin) No Longer Active 04/01/2017 [facility] Amlodipine Notes: (Same as: No rvasc) No Longer Active 04/01/2017 [facility] Clonidine Hydrochloride 0.1 MG Oral Tablet Notes: (Same As: Catapres) No Longer Active 04/01/2017 [facility] Acetaminophen 300 MG / Codeine Phosphate 60 MG Oral Tablet [Tylenol with Codeine #4] Notes: Do not exceed 4gm/day of acetamin ophen. (Same as: Tylenol with Codeine # 4) No Longer Active 04/01/2017 [facility] Hydralazine Notes: (Same as: A presoline) Push over 5 minutes No Longer Active 04/01/2017 [facility] NS + KCL 20mEq/L 1000ml (Premix) 1,000 mL Notes: PREMIX IV - Do Not Alter WASTE: F/P - Sink; E - Municipal Trash Bin Inactive 04/01/2017 [facility] Reglan Notes: (Same as: Reglan ) Take 30 min before meals No Longer Active 04/01/2017 [facility] Phenergan Notes: Do not give I V push. (Same as: Phenergan) No Longer Active 04/01/2017 [facility] Dilaudid 1 mg, 1 mL, Route: IV P, Drug form: INJ, Q3H, Dosing Weight 61.364, kg, PRN Pain Score 7-10, Start date: 04/01/17 2:24:00 CDT, Duration: 30 day, Stop date: 05/01/17 2:23:00 CDT Inactive 04/01/2017 [facility] Ondansetron Notes: (Same as: Dereje bowden) MEDICATION WASTE Product Size: 4 mg Product Wasted: ___ mg No Longer Active 04/01/2017 [facility] Lactated Ringers 1,000 mL 1,00 0 mL, Rate: 125 ml/hr, Infuse over: 8 hr, Route: IV, Dosing Weight 61.364 kg, Total Volume: 1,000, Start date: 04/01/17 2:22:00 CDT, Duration: 30 day, Stop date: 05/01/17 2:21:00 CDT Inactive 04/01/2017 [facility] Saline Flush 0.9% Notes: (Same as: BD Posiflush) No Longer Active 04/01/2017 [facility] Hydromorphone 2 mg, 2 mL, Rout e: IV, Drug form: INJ, ONCE, Dosing Weight 61.364, kg, Start date: 04/01/17 1:43:00 CDT, Stop date: 04/01/17 1:43:00 CDT Inactive 04/01/2017 [facility] Phenergan Notes: Do not give I V push. (Same as: Phenergan) Inactive 04/01/2017 [facility] heparin, porcine Notes: (Same as: Heparin Lock Flush) Inactive 12/29/2016 [facility] pantoprazole 40 MG Enteric Coated Tablet [Protonix] 40 mg = 1 tab, PO, Daily, # 30 tab, 0 Refill(s) Active 12/29/2016 [facility] digoxin 125 mcg (0.125 mg) oral tablet 0.125 mg, PO, Daily, # 30 tab, 0 Refill(s) Active 12/29/2016 [facility] Clonidine Hydrochloride 0.1 MG Oral Tablet 0.1 mg = 1 tab, PO, PRN, PRN Hypertension, # 30 tab, 0 Refill(s) Active 12/29/2016 [facility] amLODIPine 5 mg oral tablet 5 mg = 1 tab, PO, Daily, # 30 tab, 0 Refill(s) Active 12/29/2016 [facility] Zofran 8 mg, Route: IV, Q8H, D osing Weight 68.182, kg, PRN Nausea, Start date: 12/29/16 11:20:00 CDT, Duration: 30 day, Stop date: 01/28/17 11:19:00 CDT Inactive 12/29/2016 [facility] Zofran 8 mg, Route: PO, Q8H, D osing Weight 68.182, kg, PRN Nausea, Start date: 12/29/16 11:19:00 CDT, Duration: 30 day, Stop date: 01/28/17 11:18:00 CDT Inactive 12/29/2016 [facility] Digoxin Notes: (Same as: Lanox in) Inactive 12/29/2016 [facility] sodium chloride 0.9% 1000 ml INJ 1,000 mL 1,000 mL, Rate: 100 ml/hr, Infuse over: 10 hr, Route: IV, Dosing Weight 68.182 kg, Total Volume: 1,000, Start date: 12/28/16 22:00:00 CDT, Duration: 30 day, Stop date: 01/27/17 21:59:00 CDT No Longe r Active 12/29/2016 [facility] Trazodone Hydrochloride 50 MG Oral Tablet Notes: (Same As: Desyrel) No Longer Active 12/29/2016 [facility] Digoxin Notes: (Same as: Lanox in) No Longer Active 12/28/2016 [facility] NS + KCL 20mEq/L 1000ml (Premix) 250 mL Notes: PREMIX IV - Do Not Alter WASTE: F/P - Sink; E - Municipal Trash Bin Inactive 12/28/2016 [facility] potassium chloride Notes: (Godwin e as: K-Dur 20) "Do Not Crush" With food and full glass of water No Longer Active 12/28/2016 [facility] NS + KCL 20mEq/L 1000ml (Premix) 1,000 mL Notes: PREMIX IV - Do Not Alter WASTE: F/P - Sink; E - Municipal Trash Bin No Longer Active 12/28/2016 [facility] Sodium Chloride 0.9% IV 1000 mL 1,000 mL, Rate: 100 ml/hr, Infuse over: 10 hr, Route: IV, Dosing Weight 68.182 kg, Total Volume: 1,000, Start date: 12/28/16 12:52:00 CDT, Duration: 30 day, Stop date: 01/27/17 12:51:00 CDT Inactive 12/28/2016 [facility] Zanaflex Notes: (Same As: Oneil flex) No Longer Active 12/28/2016 [facility] metoprolol tartrate Notes: (Sa me as: Toprol XL) May split tab, but do not crush. N o Longer Active 12/28/2016 [facility] Lisinopril Notes: (Same as: Pr inivil, Zestril) No Longer Active 12/28/2016 [facility] influenza virus vaccine, inactivated Notes: (Same as: Fluzone Quadrivalent, Fluarix Quadrivalent) For 3 years of age and older (0.5 mL IM) Shake well before use Inactive 12/28/2016 [facility] Hyoscyamine Notes: (Same as: L evsin) Take 30 min before meal No Longer Active 12/28/2016 [facility] 168 HR Clonidine 0.0125 MG/HR Transdermal Patch Notes: Patch delivers 0.3 mg/24 hours; Patch is applied weekly. [id number]. "Remove old patch before application of new patch" No Longer Active 12/28/2016 [facility] Clonidine Hydrochloride 0.1 MG Oral Tablet Notes: (Same As: Catapres) No Longer Active 12/28/2016 [facility] Acetaminophen 300 MG / Codeine Phosphate 60 MG Oral Tablet [Tylenol with Codeine #4] Notes: Do not exceed 4gm/day of acetamin ophen. (Same as: Tylenol with Codeine # 4) No Longer Active 12/28/2016 [facility] Labetalol Notes: (Same as: Pamela pretty Trankelvin) Push over 2 minutes Give bolus over 2-3 minutes. Inactive 12/28/2016 [facility] Zofran Notes: (Same as: Zofran ) MEDICATION WASTE Product Size: 4 mg Product Wasted: ___ mg No Longer Active 12/28/2016 [facility] Hydromorphone 2 mg, 2 mL, Rout e: IVP, Drug form: INJ, Q4H, Dosing Weight 68.182, kg, PRN Pain Score 7-10, Start date: 12/28/16 3:26:00 CDT, Duration: 30 day, Stop date: 01/27/17 3:25:00 CDT No Longer Active 12/28/2016 [facility] Acetaminophen 325 MG / Hydrocodone Kiah trate 5 MG Oral Tablet Notes: (Same as: [place] 325/5) Do not ex ceed 4gm/day of acetaminophen. No Longer Active 12/28/2016 [facility] Gloryfrcary Notes: (Same as: Otilio ) MEDICATION WASTE Product Size: 4 mg Product Wasted: ___ mg Inactive 12/28/2016 [facility] Dilaudid 1 mg, 1 mL, Route: IV , Drug form: INJ, Q4H, Dosing Weight 68.182, kg, PRN Pain Score 6-10, Start date: 12/28/16 1:25:00 CDT, Duration: 30 day, Stop date: 01/27/17 1:24:00 CDT Inactive 12/28/2016 [facility] Dilaudid 0.5 mg, 0.5 mL, Route : IV, Drug form: INJ, Q4H, Dosing Weight 68.182, kg, PRN Pain Score 6-10, Start date: 12/28/16 1:24:00 CDT, Duration: 30 day, Stop date: 01/27/17 1:23:00 CDT Inactive 12/28/2016 [facility] Clonidine Hydrochloride 0.1 MG Oral Tablet 0.1 mg = 1 tab, PO, PRN, 0 Refill(s) Active 12/28/2016 [facility] Colestipol Hydrochloride 1000 MG Oral Tablet [Colestid ] 2 gm = 2 tab, PO, PRN, # 120 tab, 0 Refill(s) Active 12/28/2016 [facility] Hyoscyamine 0.125 mg, PO, Q4H, 0 Refill(s) Active 12/28/2016 [facility] Acetaminophen 300 MG / Codeine Phosphate 60 MG Oral Tablet [Tylenol with Codeine #4] 1 tab, PO, Q4H, PRN Pain, 0 Refill(s) Active 12/28/2016 [facility] Trazodone Hydrochloride 50 MG Oral Tablet 50 mg = 1 tab, PO, Bedtime, # 30 tab, 1 Refill(s) Active 12/28/2016 [facility] Lisinopril 2.5 mg, PO, Daily, 0 Refill(s) Active 12/28/2016 [facility] 168 HR Clonidine 0.0125 MG/HR Transdermal Patch 1 patch, TOP, qWeek, # 12 patch, 0 Refill(s) Active 12/28/2016 [facility] metoprolol 100 mg oral tablet, extended release 100 mg = 1 tab, PO, BID, 0 Refill(s) Active 12/28/2016 [facility] tizanidine 6 MG Oral Capsule [Zanaflex] 6 mg = 1 cap, PO, TID, 0 Refill(s) Active 12/28/2016 [facility] Allergies, Adverse Reactions, Alerts Substance Category Reaction Severity Reaction type Status Date Reported Comments Source aspirin Assertion Drug allergy Active [facility] Inapsine Assertion Drug allergy Active [facility] morphine Assertion Drug allergy Active [facility] Toradol Assertion Drug allergy Active [facility] Immunizations Immunization Date Given Site Status Last Updated Comments Source influenza virus vaccine, inactivated 07/12/2017 Left deltoid completed Bina [facility] influenza virus vaccine, inactivated 12/28/2016 Left deltoid completed Ronald [facility] tetanus-diphtheria toxoids Right deltoid completed Geovanna [facility] tetanus-diphtheria toxoids Right deltoid completed Geovanna [facility] Results Order Name Results Value Reference Range Date Interpretation Comments Source CARDIAC ENZYMES Total CK 44 12 - 191 03/26/2018 [facility] CARDIAC ENZYMES Troponin-I 0.03 0.00 - 0.40 03/26/2018 [facility] CHEM PANEL Magnesium Lvl 2.0 1.8 - 2.4 03/26/2018 [facility] CHEM PANEL eGFR 91 03/26/2018 Result Comment: The eGFR is calculated using the CKD-EPI formula. In most young, healthy individuals the eGFR will be >90 mL/min/1.73m2. The eGFR declines with age. An eGFR of 60-89 may be normal in some populations, particularly the elderly, for whom the CKD-EPI formula has not been extensively validated. Use of the eGFR is not recommended in the following populations:

Individuals with unstable creatinine concentrations, including patients and those with serious co-morbid conditions.

Patients with extremes in muscle mass or diet.

The data above are obtained from the National Kid[employer] Disease Education Program (NKDEP) which additionally recommends that when the eGFR is used in patients with extremes of body mass index for purposes of drug dosing, the eGFR should be multiplied by the estimated BMI. [facility] CHEM PANEL Calcium Lvl 7.9 8.5 - 10.5 03/26/2018 [facility] CHEM PANEL AGAP 11.6 10.0 - 20.0 03/26/2018 [facility] CHEM PANEL CO2 25 24 - 32 03/26/2018 [facility] CHEM PANEL Chloride Lvl 111 95 - 109 03/26/2018 [facility] CHEM PANEL BUN 11 7 - 22 03/26/2018 [facility] CHEM PANEL Glucose Lvl 87 70 - 99 03/26/2018 [facility] CHEM PANEL Potassium Lvl 3.6 3.5 - 5.1 03/26/2018 [facility] CHEM PANEL Sodium Lvl 144 135 - 145 03/26/2018 [facility] CHEM PANEL Creatinine Lvl 0.85 0.50 - 1.40 03/26/2018 [facility] CARDIAC ENZYMES Troponin-I 0.05 0.00 - 0.40 03/26/2018 [facility] CARDIAC ENZYMES Total CK 40 12 - 191 03/26/2018 [facility] CARDIAC ENZYMES proBNP 208 0 - 125 03/25/2018 [facility] CARDIAC ENZYMES CK MB Index <1.6 0.0 - 2.5 03/25/2018 [facility] CARDIAC ENZYMES Total CK 32 12 - 191 03/25/2018 [facility] CARDIAC ENZYMES CK MB <0.5 0.5 - 3.6 03/25/2018 [facility] CARDIAC ENZYMES Troponin-I 0.03 0.00 - 0.40 03/25/2018 [facility] CHEM PANEL Phosphorus 3.3 2.5 - 4.5 03/25/2018 [facility] CHEM PANEL Magnesium Lvl 2.0 1.8 - 2.4 03/25/2018 [facility] CHEM PANEL eGFR 89 03/25/2018 Result Comment: The eGFR is calculated using the CKD-EPI formula. In most young, healthy individuals the eGFR will be >90 mL/min/1.73m2. The eGFR declines with age. An eGFR of 60-89 may be normal in some populations, particularly the elderly, for whom the CKD-EPI formula has not been extensively validated. Use of the eGFR is not recommended in the following populations:

Individuals with unstable creatinine concentrations, including patients and those with serious co-morbid conditions.

Patients with extremes in muscle mass or diet.

The data above are obtained from the National Kidney Disease Education Program (NKDEP) which additionally recommends that when the eGFR is used in patients with extremes of body mass index for purposes of drug dosing, the eGFR should be multiplied by the estimated BMI. [facility] CHEM PANEL Alk Phos 137 39 - 136 03/25/2018 [facility] CHEM PANEL Bili Total 0.3 0.2 - 1.3 03/25/2018 [facility] CHEM PANEL AST 19 0 - 37 03/25/2018 [facility] CHEM PANEL Globulin 4.1 2.7 - 4.2 03/25/2018 [facility] CHEM PANEL A/G Ratio 1.0 0.7 - 1.6 03/25/2018 [facility] CHEM PANEL ALT 23 0 - 65 03/25/2018 [facility] CHEM PANEL B/C Ratio 22 6 - 25 03/25/2018 [facility] CHEM PANEL CO2 22 24 - 32 03/25/2018 [facility] CHEM PANEL AGAP 18.0 10.0 - 20.0 03/25/2018 [facility] CHEM PANEL Calcium Lvl 8.9 8.5 - 10.5 03/25/2018 [facility] CHEM PANEL Chloride Lvl 102 95 - 109 03/25/2018 [facility] CHEM PANEL Sodium Lvl 139 135 - 145 03/25/2018 [facility] CHEM PANEL Potassium Lvl 3.0 3.5 - 5.1 03/25/2018 Result Comment: Critical Result(s) kristin Stafford in ER at 03/25/2018 16:32 by sp. Read back OK. [facility] CHEM PANEL Total Protein 8.2 6.4 - 8.4 03/25/2018 [facility] CHEM PANEL Albumin Lvl 4.1 3.5 - 5.0 03/25/2018 [facility] CHEM PANEL BUN 19 7 - 22 03/25/2018 [facility] CHEM PANEL Creatinine Lvl 0.87 0.50 - 1.40 03/25/2018 [facility] CHEM PANEL Glucose Lvl 109 70 - 99 03/25/2018 [facility] HEMATOLOGY Segs-Bands # 3.3 1.5 - 8.1 03/25/2018 [facility] HEMATOLOGY Basophils 0.6 0.0 - 1.0 03/25/2018 [facility] HEMATOLOGY Lymphocytes # 2.4 1.0 - 5.5 03/25/2018 [facility] HEMATOLOGY Monocytes # 0.4 0.0 - 0.8 03/25/2018 [facility] HEMATOLOGY Lymphocytes 39.2 20.0 - 40.0 03/25/[address] [facility] Monocytes 7.2 2.0 - 12.0 03/25/[address] [facility] Eosinophils 0.2 0.0 - 4.0 03/25/[address] [facility] Segs 52.8 45.0 - 75.0 03/25/[address] [facility] PTT 27.4 22.9 - 35.8 03/25/[address] [facility] PT 12.4 12.0 - 14.7 03/25/[address] [facility] INR 0.92 0.85 - 1.17 03/25/[address] [facility] Platelet 297 133 - 450 03/25/[address] [facility] Hct 34.2 36.0 - 48.0 03/25/[address] [facility] MCH 26.7 27.0 - 31.0 03/25/[address] [facility] MCV 83.5 80.0 - 98.0 03/25/[address] [facility] WBC 6.2 3.7 - 10.4 03/25/[address] [facility] RBC 4.09 4.20 - 5.40 03/25/[address] [facility] MPV 8.3 7.4 - 10.4 03/25/[address] [facility] RDW 18.1 11.5 - 14.5 03/25/[address] [facility] MCHC 32.0 32.0 - 36.0 03/25/[address] [facility] Hgb 10.9 12.0 - 16.0 03/25/2018 [facility] CHEM PANEL Creatinine Lvl 0.60 0.50 - 1.40 02/19/2018 [facility] CHEM PANEL eGFR 121 02/19/2018 Result Comment: The eGFR is calculated using the CKD-EPI formula. In most young, healthy individuals the eGFR will be >90 mL/min/1.73m2. The eGFR declines with age. An eGFR of 60-89 may be normal in some populations, particularly the elderly, for whom the CKD-EPI formula has not been extensively validated. Use of the eGFR is not recommended in the following populations:

Individuals with unstable creatinine concentrations, including patients and those with serious co-morbid conditions.

Patients with extremes in muscle mass or diet.

The data above are obtained from the National Kidney Disease Education Program (NKDEP) which additionally recommends that when the eGFR is used in patients with extremes of body mass index for purposes of drug dosing, the eGFR should be multiplied by the estimated BMI. [facility] CHEM PANEL AGAP 11.1 10.0 - 20.0 02/19/2018 [facility] CHEM PANEL Sodium Lvl 147 135 - 145 02/19/2018 [facility] CHEM PANEL Potassium Lvl 4.1 3.5 - 5.1 02/19/2018 [facility] CHEM PANEL Calcium Lvl 7.4 8.5 - 10.5 02/19/2018 [facility] CHEM PANEL Chloride Lvl 113 95 - 109 02/19/2018 [facility] CHEM PANEL CO2 27 24 - 32 02/19/2018 [facility] CHEM PANEL Glucose Lvl 104 70 - 99 02/19/2018 [facility] CHEM PANEL BUN 9 7 - 22 02/19/2018 [facility] ELECTROLYTES Potassium Lvl 4.1 3.5 - 5.1 02/19/2018 [facility] CARDIAC ENZYMES Total CK 14 12 - 191 02/18/2018 [facility] CARDIAC ENZYMES CK MB <1.0 0.5 - 3.6 02/18/2018 [facility] CARDIAC ENZYMES Troponin-I 0.03 0.00 - 0.40 02/18/2018 [facility] ELECTROLYTES Potassium Lvl 1.9 3.5 - 5.1 02/18/2018 Result Comment: Critical Result(s) foster d to Radha Lang at 02/18/2018 09:31 by Read back OK. [facility] CARDIAC ENZYMES Troponin-I <0.02 0.00 - 0.40 02/18/2018 [facility] CARDIAC ENZYMES Total CK 28 12 - 191 02/18/2018 [facility] CARDIAC ENZYMES CK MB <1.0 0.5 - 3.6 02/18/2018 [facility] CARDIAC ENZYMES Troponin-I <0.02 0.00 - 0.40 02/18/2018 [facility] CARDIAC ENZYMES Total CK 31 12 - 191 02/18/2018 [facility] CHEM PANEL Magnesium Lvl 2.1 1.8 - 2.4 02/18/2018 [facility] CHEM PANEL Glucose Lvl 57 70 - 99 02/18/2018 [facility] CHEM PANEL AGAP 9.9 10.0 - 20.0 02/18/2018 [facility] CHEM PANEL Calcium Lvl 7.7 8.5 - 10.5 02/18/2018 [facility] CHEM PANEL Chloride Lvl 113 95 - 109 02/18/2018 [facility] CHEM PANEL CO2 27 24 - 32 02/18/2018 [facility] CHEM PANEL Sodium Lvl 147 135 - 145 02/18/2018 [facility] CHEM PANEL BUN 9 7 - 22 02/18/2018 [facility] CHEM PANEL Creatinine Lvl 0.69 0.50 - 1.40 02/18/2018 [facility] CHEM PANEL eGFR 116 02/18/2018 Result Comment: The eGFR is calculated using the CKD-EPI formula. In most young, healthy individuals the eGFR will be >90 mL/min/1.73m2. The eGFR declines with age. An eGFR of 60-89 may be normal in some populations, particularly the elderly, for whom the CKD-EPI formula has not been extensively validated. Use of the eGFR is not recommended in the following populations:

Individuals with unstable creatinine concentrations, including patients and those with serious co-morbid conditions.

Patients with extremes in muscle mass or diet.

The data above are obtained from the National Kidney Disease Education Program (NKDEP) which additionally recommends that when the eGFR is used in patients with extremes of body mass index for purposes of drug dosing, the eGFR should be multiplied by the estimated BMI. [facility] HEMATOLOGY Eosinophils # 0.1 0.0 - 0.5 02/18/2018 [facility] HEMATOLOGY Monocytes # 0.6 0.0 - 0.8 02/18/2018 [facility] HEMATOLOGY Segs 37.2 45.0 - 75.0 02/18/[address] [facility] Lymphocytes 46.3 20.0 - 40.0 02/18/2018 [facility] HEMATOLOGY Eosinophils 2.2 0.0 - 4.0 02/18/2018 [facility] HEMATOLOGY Basophils 0.9 0.0 - 1.0 02/18/2018 [facility] HEMATOLOGY Monocytes 13.4 2.0 - 12.0 02/18/2018 [facility] HEMATOLOGY Lymphocytes # 1.9 1.0 - 5.5 02/18/2018 [facility] HEMATOLOGY Segs-Bands # 1.5 1.5 - 8.1 02/18/2018 [facility] HEMATOLOGY Hct 28.3 36.0 - 48.0 02/18/[address] [facility] MCV 83.8 80.0 - 98.0 02/18/[address] [facility] MCHC 32.4 32.0 - 36.0 02/18/[address] [facility] Platelet 178 133 - 450 02/18/[address] [facility] RDW 18.8 11.5 - 14.5 02/18/[address] [facility] MCH 27.2 27.0 - 31.0 02/18/[address] [facility] MPV 9.4 7.4 - 10.4 02/18/[address] [facility] WBC 4.1 3.7 - 10.4 02/18/[address] [facility] RBC 3.38 4.20 - 5.40 02/18/[address] [facility] Hgb 9.2 12.0 - 16.0 02/18/2018 [facility] CARDIAC ENZYMES CK MB <0.5 0.5 - 3.6 02/17/2018 [facility] CARDIAC ENZYMES CK MB Index <1.7 0.0 - 2.5 02/17/2018 [facility] ELECTROLYTES CO2 26 24 - 32 02/17/2018 [facility] Total Protein 7.3 6.4 - 8.4 02/17/2018 [facility] ELECTROLYTES Calcium Lvl 8.6 8.5 - 10.5 02/17/2018 [facility] Albumin Lvl 3.5 3.5 - 5.0 02/17/2018 [facility] ELECTROLYTES AST 15 0 - 37 02/17/2018 [facility] ELECTROLYTES Alk Phos 116 39 - 136 02/17/2018 [facility] ELECTROLYTES Bili Total 0.4 0.2 - 1.3 02/17/2018 [facility] ELECTROLYTES ALT 19 0 - 65 02/17/2018 [facility] ELECTROLYTES B/C Ratio 12 6 - 25 02/17/2018 [facility] ELECTROLYTES Globulin 3.8 2.7 - 4.2 02/17/2018 [facility] ELECTROLYTES AGAP 14.2 10.0 - 20.0 02/17/2018 [facility] ELECTROLYTES eGFR 110 02/17/2018 Result Comment: The eGFR is calculated using the CKD-EPI formula. In most young, healthy individuals the eGFR will be >90 mL/min/1.73m2. The eGFR declines with age. An eGFR of 60-89 may be normal in some populations, particularly the elderly, for whom the CKD-EPI formula has not been extensively validated. Use of the eGFR is not recommended in the following populations:

Individuals with unstable creatinine concentrations, including patients and those with serious co-morbid conditions.

Patients with extremes in muscle mass or diet.

The data above are obtained from the National Kidney Disease Education Program (NKDEP) which additionally recommends that when the eGFR is used in patients with extremes of body mass index for purposes of drug dosing, the eGFR should be multiplied by the estimated BMI. [facility] ELECTROLYTES A/G Ratio 0.9 0.7 - 1.6 02/17/2018 [facility] ELECTROLYTES Chloride Lvl 108 95 - 109 02/17/2018 [facility] ELECTROLYTES BUN 9 7 - 22 02/17/2018 [facility] ELECTROLYTES Creatinine Lvl 0.7 3 0.50 - 1.40 02/17/2018 [facility] ELECTROLYTES Sodium Lvl 145 135 - 145 02/17/2018 [facility] ELECTROLYTES Glucose Lvl 100 70 - 99 02/17/2018 [facility] HEMATOLOGY MCV 83.2 80.0 - 98.0 02/17/[address] [facility] Platelet 201 133 - 450 02/17/[address] [facility] MCH 26.9 27.0 - 31.0 02/17/[address] [facility] MCHC 32.3 32.0 - 36.0 02/17/[address] [facility] RDW 18.6 11.5 - 14.5 02/17/[address] [facility] Hgb 9.8 12.0 - 16.0 02/17/[address] [facility] Hct 30.4 36.0 - 48.0 02/17/[address] [facility] WBC 3.3 3.7 - 10.4 02/17/[address] [facility] RBC 3.66 4.20 - 5.40 02/17/[address] [facility] MPV 8.7 7.4 - 10.4 02/17/2018 [facility] HEMATOLOGY Eosinophils # 0.1 0.0 - 0.5 02/17/[address] [facility] Monocytes # 0.4 0.0 - 0.8 02/17/[address] [facility] Lymphocytes # 1.4 1.0 - 5.5 02/17/2018 [facility] HEMATOLOGY Segs 44.3 45.0 - 75.0 02/17/[address] [facility] Lymphocytes 42.1 20.0 - 40.0 02/17/[address] [facility] Eosinophils 1.6 0.0 - 4.0 02/17/[address] [facility] Segs-Bands # 1.5 1.5 - 8.1 02/17/[address] [facility] Monocytes 11.1 2.0 - 12.0 02/17/2018 [facility] HEMATOLOGY Basophils 0.9 0.0 - 1.0 02/17/2018 [facility] CARDIAC ENZYMES Troponin-I <0.02 0.00 - 0.40 07/12/2017 [facility] HEMATOLOGY MPV 9.0 7.4 - 10.4 07/12/2017 [facility] HEMATOLOGY Platelet 196 133 - 450 07/12/[address] [facility] RDW 15.3 11.5 - 14.5 07/12/[address] [facility] MCH 30.0 27.0 - 31.0 07/12/[address] [facility] MCHC 33.3 32.0 - 36.0 07/12/2017 [facility] HEMATOLOGY Hct 32.5 36.0 - 48.0 07/12/2017 [facility] HEMATOLOGY MCV 90.0 80.0 - 98.0 07/12/2017 [facility] HEMATOLOGY Hgb 10.8 12.0 - 16.0 07/12/2017 [facility] HEMATOLOGY WBC 4.3 3.7 - 10.4 07/12/[address] [facility] RBC 3.61 4.20 - 5.40 07/12/2017 [facility] HEMATOLOGY Monocytes # 0.4 0.0 - 0.8 07/12/2017 [facility] HEMATOLOGY Eosinophils # 0.1 0.0 - 0.5 07/12/2017 [facility] HEMATOLOGY Lymphocytes # 2.1 1.0 - 5.5 07/12/2017 [facility] HEMATOLOGY Monocytes 8.8 2.0 - 12.0 07/12/2017 [facility] HEMATOLOGY Eosinophils 1.2 0.0 - 4.0 07/12/2017 [facility] HEMATOLOGY Segs-Bands # 1.7 1.5 - 8.1 07/12/2017 [facility] HEMATOLOGY Basophils 0.7 0.0 - 1.0 07/12/2017 [facility] HEMATOLOGY Segs 40.6 45.0 - 75.0 07/12/2017 [facility] HEMATOLOGY Lymphocytes 48.7 20.0 - 40.0 07/12/2017 [facility] CARDIAC ENZYMES Troponin-I <0.02 0.00 - 0.40 07/12/2017 [facility] CHEM PANEL Phosphorus 3.4 2.5 - 4.5 07/12/2017 [facility] CHEM PANEL Magnesium Lvl 1.9 1.8 - 2.4 07/12/2017 [facility] CHEM PANEL eGFR 121 07/12/2017 Result Comment: The eGFR is calculated using the CKD-EPI formula. In most young, healthy individuals the eGFR will be >90 mL/min/1.73m2. The eGFR declines with age. An eGFR of 60-89 may be normal in some populations, particularly the elderly, for whom the CKD-EPI formula has not been extensively validated. Use of the eGFR is not recommended in the following populations:

Individuals with unstable creatinine concentrations, including patients and those with serious co-morbid conditions.

Patients with extremes in muscle mass or diet.

The data above are obtained from the National Kidney Disease Education Program (NKDEP) which additionally recommends that when the eGFR is used in patients with extremes of body mass index for purposes of drug dosing, the eGFR should be multiplied by the estimated BMI. [facility] CHEM PANEL AST 10 0 - 37 07/12/2017 [facility] CHEM PANEL Albumin Lvl 3.2 3.5 - 5.0 07/12/2017 [facility] CHEM PANEL ALT 24 0 - 65 07/12/2017 [facility] CHEM PANEL A/G Ratio 0.9 0.7 - 1.6 07/12/2017 [facility] CHEM PANEL B/C Ratio 11 6 - 25 07/12/2017 [facility] CHEM PANEL Globulin 3.4 2.7 - 4.2 07/12/2017 [facility] CHEM PANEL Alk Phos 95 39 - 136 07/12/2017 [facility] CHEM PANEL Bili Total 0.3 0.2 - 1.3 07/12/2017 [facility] CHEM PANEL AGAP 11.5 10.0 - 20.0 07/12/2017 [facility] CHEM PANEL Sodium Lvl 141 135 - 145 07/12/2017 [facility] CHEM PANEL Total Protein 6.6 6.4 - 8.4 07/12/2017 [facility] CHEM PANEL Creatinine Lvl 0.61 0.50 - 1.40 07/12/2017 [facility] CHEM PANEL BUN 7 7 - 22 07/12/2017 [facility] CHEM PANEL Glucose Lvl 102 70 - 99 07/12/2017 [facility] CHEM PANEL CO2 25 24 - 32 07/12/2017 [facility] CHEM PANEL Chloride Lvl 108 95 - 109 07/12/2017 [facility] CHEM PANEL Calcium Lvl 8.3 8.5 - 10.5 07/12/2017 [facility] CHEM PANEL Potassium Lvl 3.5 3.5 - 5.1 07/12/2017 [facility] ELECTROLYTES Potassium Lvl 4.0 3.5 - 5.1 05/19/2017 [facility] CHEM PANEL eGFR 117 05/19/2017 Result Comment: The eGFR is calculated using the CKD-EPI formula. In most young, healthy individuals the eGFR will be >90 mL/min/1.73m2. The eGFR declines with age. An eGFR of 60-89 may be normal in some populations, particularly the elderly, for whom the CKD-EPI formula has not been extensively validated. Use of the eGFR is not recommended in the following populations:

Individuals with unstable creatinine concentrations, including patients and those with serious co-morbid conditions.

Patients with extremes in muscle mass or diet.

The data above are obtained from the National Kidney Disease Education Program (NKDEP) which additionally recommends that when the eGFR is used in patients with extremes of body mass index for purposes of drug dosing, the eGFR should be multiplied by the estimated BMI. [facility] CHEM PANEL Bili Total 0.3 0.2 - 1.3 05/19/2017 [facility] CHEM PANEL Alk Phos 88 39 - 136 05/19/2017 [facility] CHEM PANEL AST 12 0 - 37 05/19/2017 [facility] CHEM PANEL Glucose Lvl 131 70 - 99 05/19/2017 [facility] CHEM PANEL Creatinine Lvl 0.69 0.50 - 1.40 05/19/2017 [facility] CHEM PANEL BUN 6 7 - 22 05/19/2017 [facility] CHEM PANEL ALT 16 0 - 65 05/19/2017 [facility] CHEM PANEL Albumin Lvl 2.9 3.5 - 5.0 05/19/2017 [facility] CHEM PANEL Total Protein 6.2 6.4 - 8.4 05/19/2017 [facility] CHEM PANEL AGAP 8.9 10.0 - 20.0 05/19/2017 [facility] CHEM PANEL A/G Ratio 0.9 0.7 - 1.6 05/19/2017 [facility] CHEM PANEL Globulin 3.3 2.7 - 4.2 05/19/2017 [facility] CHEM PANEL B/C Ratio 9 6 - 25 05/19/2017 [facility] CHEM PANEL CO2 28 24 - 32 05/19/2017 [facility] CHEM PANEL Calcium Lvl 7.7 8.5 - 10.5 05/19/2017 [facility] CHEM PANEL Chloride Lvl 109 95 - 109 05/19/2017 [facility] CHEM PANEL Sodium Lvl 143 135 - 145 05/19/2017 [facility] CHEM PANEL Potassium Lvl 2.9 3.5 - 5.1 05/19/2017 Result Comment: Critical Result(s) kristin medrano murtaza _miles alex at _05/19/2017 04:28 by_karine. Read back OK. [facility] CHEM PANEL Magnesium Lvl 2.5 1.8 - 2.4 05/19/2017 [facility] CHEM PANEL Phosphorus 3.7 2.5 - 4.5 05/19/2017 [facility] CHEM PANEL Amylase Lvl 36 25 - 115 05/19/2017 [facility] CHEM PANEL Lipase Lvl 107 73 - 393 05/19/2017 [facility] HEMATOLOGY RBC 3.45 4.20 - 5.40 05/19/2017 [facility] HEMATOLOGY Hgb 10.2 12.0 - 16.0 05/19/[address] [facility] MCH 29.5 27.0 - 31.0 05/19/2017 [facility] HEMATOLOGY WBC 3.8 3.7 - 10.4 05/19/2017 [facility] HEMATOLOGY Platelet 155 133 - 450 05/19/2017 [facility] HEMATOLOGY MPV 9.8 7.4 - 10.4 05/19/[address] [facility] MCHC 33.4 32.0 - 36.0 05/19/2017 [facility] HEMATOLOGY RDW 17.3 11.5 - 14.5 05/19/2017 [facility] HEMATOLOGY Hct 30.5 36.0 - 48.0 05/19/2017 [facility] HEMATOLOGY MCV 88.4 80.0 - 98.0 05/19/2017 [facility] HEMATOLOGY Monocytes 9.8 2.0 - 12.0 05/19/2017 [facility] HEMATOLOGY Segs-Bands # 1.4 1.5 - 8.1 05/19/2017 [facility] HEMATOLOGY Lymphocytes # 1.9 1.0 - 5.5 05/19/2017 [facility] HEMATOLOGY Monocytes # 0.4 0.0 - 0.8 05/19/2017 [facility] HEMATOLOGY Eosinophils # 0.1 0.0 - 0.5 05/19/2017 [facility] HEMATOLOGY Segs 37.7 45.0 - 75.0 05/19/2017 [facility] HEMATOLOGY Eosinophils 2.0 0.0 - 4.0 05/19/2017 [facility] HEMATOLOGY Basophils 1.1 0.0 - 1.0 05/19/2017 [facility] HEMATOLOGY Lymphocytes 49.4 20.0 - 40.0 05/19/2017 [facility] CHEM PANEL Lipase Lvl 136 73 - 393 05/18/2017 [facility] CHEM PANEL A/G Ratio 0.9 0.7 - 1.6 05/18/2017 [facility] CHEM PANEL ALT 17 0 - 65 05/18/2017 [facility] CHEM PANEL Albumin Lvl 3.3 3.5 - 5.0 05/18/2017 [facility] CHEM PANEL Globulin 3.5 2.7 - 4.2 05/18/2017 [facility] CHEM PANEL AST 9 0 - 37 05/18/2017 [facility] CHEM PANEL Total Protein 6.8 6.4 - 8.4 05/18/2017 [facility] CHEM PANEL Alk Phos 98 39 - 136 05/18/2017 [facility] CHEM PANEL Bili Indirect 0.1 0.0 - 1.0 05/18/2017 [facility] CHEM PANEL Bili Direct 0.1 0.0 - 0.3 05/18/2017 [facility] CHEM PANEL Bili Total 0.2 0.2 - 1.3 05/18/2017 [facility] CHEM PANEL Phosphorus 3.2 2.5 - 4.5 05/18/2017 [facility] CHEM PANEL Magnesium Lvl 2.1 1.8 - 2.4 05/18/2017 [facility] ELECTROLYTES AGAP 9.2 10.0 - 20.0 05/18/2017 [facility] ELECTROLYTES eGFR 119 05/18/2017 Result Comment: The eGFR is calculated using the CKD-EPI formula. In most young, healthy individuals the eGFR will be >90 mL/min/1.73m2. The eGFR declines with age. An eGFR of 60-89 may be normal in some populations, particularly the elderly, for whom the CKD-EPI formula has not been extensively validated. Use of the eGFR is not recommended in the following populations:

Individuals with unstable creatinine concentrations, including patients and those with serious co-morbid conditions.

Patients with extremes in muscle mass or diet.

The data above are obtained from the National Kidney Disease Education Program (NKDEP) which additionally recommends that when the eGFR is used in patients with extremes of body mass index for purposes of drug dosing, the eGFR should be multiplied by the estimated BMI. [facility] ELECTROLYTES BUN 7 7 - 22 05/18/2017 [facility] ELECTROLYTES Glucose Lvl 98 70 - 99 05/18/2017 [facility] ELECTROLYTES CO2 26 24 - 32 05/18/2017 [facility] ELECTROLYTES Chloride Lvl 111 95 - 109 05/18/2017 [facility] ELECTROLYTES Potassium Lvl 3.2 3.5 - 5.1 05/18/2017 [facility] ELECTROLYTES Sodium Lvl 143 135 - 145 05/18/2017 [facility] ELECTROLYTES Creatinine Lvl 0.6 5 0.50 - 1.40 05/18/2017 [facility] ELECTROLYTES Calcium Lvl 8.2 8.5 - 10.5 05/18/2017 [facility] HEMATOLOGY Platelet 182 133 - 450 05/18/2017 [facility] HEMATOLOGY RDW 17.8 11.5 - 14.5 05/18/2017 [facility] HEMATOLOGY MPV 9.1 7.4 - 10.4 05/18/2017 [facility] HEMATOLOGY MCHC 33.0 32.0 - 36.0 05/18/[address] [facility] MCH 29.3 27.0 - 31.0 05/18/2017 [facility] HEMATOLOGY MCV 88.6 80.0 - 98.0 05/18/2017 [facility] HEMATOLOGY Hct 33.5 36.0 - 48.0 05/18/2017 [facility] HEMATOLOGY RBC 3.78 4.20 - 5.40 05/18/2017 [facility] HEMATOLOGY WBC 4.9 3.7 - 10.4 05/18/2017 [facility] HEMATOLOGY Hgb 11.1 12.0 - 16.0 05/18/2017 [facility] HEMATOLOGY Eosinophils 0.9 0.0 - 4.0 05/18/2017 [facility] HEMATOLOGY Segs 46.3 45.0 - 75.0 05/18/2017 [facility] HEMATOLOGY Monocytes 10.0 2.0 - 12.0 05/18/2017 [facility] HEMATOLOGY Lymphocytes 42.0 20.0 - 40.0 05/18/2017 [facility] HEMATOLOGY Basophils 0.8 0.0 - 1.0 05/18/2017 [facility] HEMATOLOGY Lymphocytes # 2.1 1.0 - 5.5 05/18/2017 [facility] HEMATOLOGY Segs-Bands # 2.3 1.5 - 8.1 05/18/2017 [facility] HEMATOLOGY Monocytes # 0.5 0.0 - 0.8 05/18/2017 [facility] ANEMIA STUDY Folate Lvl 12.1 >=3.0 ng/mL 04/04/2017 [facility] ANEMIA STUDY Ferritin Lvl 63 5 - 204 04/04/2017 [facility] ANEMIA STUDY Vitamin B12 Lvl 450 254 - 1320 04/04/2017 [facility] ANEMIA STUDY UIBC 199 110 - 370 04/04/2017 [facility] ANEMIA STUDY % Satur Fe 13 12 - 57 04/04/2017 [facility] ANEMIA STUDY TIBC 228 228 - 428 04/04/2017 [facility] ANEMIA STUDY Iron 29 30 - 160 04/04/2017 [facility] HEMATOLOGY Retic Auto 1.7 0.5 - 1.5 04/04/2017 [facility] IMMUNOLOGY Haptoglobin 146 16 - 200 04/04/2017 [facility] CHEM PANEL Phosphorus 3.1 2.5 - 4.5 04/03/2017 [facility] CHEM PANEL Magnesium Lvl 1.9 1.8 - 2.4 04/03/2017 [facility] CHEM PANEL BUN 15 7 - 22 04/03/2017 [facility] CHEM PANEL Glucose Lvl 129 70 - 99 04/03/2017 [facility] CHEM PANEL Creatinine Lvl 0.74 0.50 - 1.40 04/03/2017 [facility] CHEM PANEL Sodium Lvl 141 135 - 145 04/03/2017 [facility] CHEM PANEL CO2 25 24 - 32 04/03/2017 [facility] CHEM PANEL Potassium Lvl 3.1 3.5 - 5.1 04/03/2017 [facility] CHEM PANEL Chloride Lvl 110 95 - 109 04/03/2017 [facility] CHEM PANEL Calcium Lvl 7.6 8.5 - 10.5 04/03/2017 [facility] CHEM PANEL AGAP 9.1 10.0 - 20.0 04/03/2017 [facility] CHEM PANEL eGFR 108 04/03/2017 Result Comment: The eGFR is calculated using the CKD-EPI formula. In most young, healthy individuals the eGFR will be >90 mL/min/1.73m2. The eGFR declines with age. An eGFR of 60-89 may be normal in some populations, particularly the elderly, for whom the CKD-EPI formula has not been extensively validated. Use of the eGFR is not recommended in the following populations:

Individuals with unstable creatinine concentrations, including patients and those with serious co-morbid conditions.

Patients with extremes in muscle mass or diet.

The data above are obtained from the National Kidney Disease Education Program (NKDEP) which additionally recommends that when the eGFR is used in patients with extremes of body mass index for purposes of drug dosing, the eGFR should be multiplied by the estimated BMI. [facility] CHEM PANEL Magnesium Lvl 2.1 1.8 - 2.4 04/02/2017 [facility] CHEM PANEL eGFR 121 04/02/2017 Result Comment: The eGFR is calculated using the CKD-EPI formula. In most young, healthy individuals the eGFR will be >90 mL/min/1.73m2. The eGFR declines with age. An eGFR of 60-89 may be normal in some populations, particularly the elderly, for whom the CKD-EPI formula has not been extensively validated. Use of the eGFR is not recommended in the following populations:

Individuals with unstable creatinine concentrations, including patients and those with serious co-morbid conditions.

Patients with extremes in muscle mass or diet.

The data above are obtained from the National Kidney Disease Education Program (NKDEP) which additionally recommends that when the eGFR is used in patients with extremes of body mass index for purposes of drug dosing, the eGFR should be multiplied by the estimated BMI. [facility] CHEM PANEL Sodium Lvl 140 135 - 145 04/02/2017 [facility] CHEM PANEL BUN 13 7 - 22 04/02/2017 [facility] CHEM PANEL Creatinine Lvl 0.62 0.50 - 1.40 04/02/2017 [facility] CHEM PANEL Glucose Lvl 104 70 - 99 04/02/2017 [facility] CHEM PANEL AGAP 12.9 10.0 - 20.0 04/02/2017 [facility] CHEM PANEL CO2 24 24 - 32 04/02/2017 [facility] CHEM PANEL Calcium Lvl 8.6 8.5 - 10.5 04/02/2017 [facility] CHEM PANEL Potassium Lvl 2.9 3.5 - 5.1 04/02/2017 Result Comment: Critical Result(s) kristin Bee at 04/02/2017 09:00 by EFSoo. Read back OK. [facility] CHEM PANEL Chloride Lvl 106 95 - 109 04/02/2017 [facility] HEMATOLOGY Monocytes 9.7 2.0 - 12.0 04/02/2017 [facility] HEMATOLOGY Basophils 0.2 0.0 - 1.0 04/02/2017 [facility] HEMATOLOGY Segs 70.8 45.0 - 75.0 04/02/[address] [facility] Lymphocytes 19.3 20.0 - 40.0 04/02/[address] [facility] Segs-Bands # 3.9 1.5 - 8.1 04/02/[address] [facility] Lymphocytes # 1.1 1.0 - 5.5 04/02/[address] [facility] Monocytes # 0.5 0.0 - 0.8 04/02/[address] [facility] Platelet 203 133 - 450 04/02/[address] [facility] MCH 28.4 27.0 - 31.0 04/02/[address] [facility] MCV 86.3 80.0 - 98.0 04/02/[address] [facility] RDW 21.6 11.5 - 14.5 04/02/[address] [facility] MCHC 33.0 32.0 - 36.0 04/02/[address] [facility] WBC 5.5 3.7 - 10.4 04/02/[address] [facility] MPV 8.7 7.4 - 10.4 04/02/[address] [facility] Hgb 10.2 12.0 - 16.0 04/02/[address] [facility] RBC 3.60 4.20 - 5.40 04/02/[address] [facility] Hct 31.1 36.0 - 48.0 04/02/2017 [facility] ELECTROLYTES AGAP 11.1 10.0 - 20.0 04/01/2017 [facility] ELECTROLYTES BUN 9 7 - 22 04/01/2017 [facility] ELECTROLYTES Glucose Lvl 126 70 - 99 04/01/2017 [facility] ELECTROLYTES Chloride Lvl 104 95 - 109 04/01/2017 [facility] ELECTROLYTES CO2 27 24 - 32 04/01/2017 [facility] ELECTROLYTES Sodium Lvl 139 135 - 145 04/01/2017 [facility] ELECTROLYTES Creatinine Lvl 0.6 0 0.50 - 1.40 04/01/2017 [facility] ELECTROLYTES eGFR 122 04/01/2017 Result Comment: The eGFR is calculated using the CKD-EPI formula. In most young, healthy individuals the eGFR will be >90 mL/min/1.73m2. The eGFR declines with age. An eGFR of 60-89 may be normal in some populations, particularly the elderly, for whom the CKD-EPI formula has not been extensively validated. Use of the eGFR is not recommended in the following populations:

Individuals with unstable creatinine concentrations, including patients and those with serious co-morbid conditions.

Patients with extremes in muscle mass or diet.

The data above are obtained from the National Kidney Disease Education Program (NKDEP) which additionally recommends that when the eGFR is used in patients with extremes of body mass index for purposes of drug dosing, the eGFR should be multiplied by the estimated BMI. [facility] ELECTROLYTES Calcium Lvl 8.7 8.5 - 10.5 04/01/2017 [facility] ELECTROLYTES Potassium Lvl 3.1 3.5 - 5.1 04/01/[address] [facility] Hgb 11.4 12.0 - 16.0 04/01/[address] [facility] RDW 20.6 11.5 - 14.5 04/01/[address] [facility] RBC 4.05 4.20 - 5.40 04/01/[address] [facility] WBC 8.4 3.7 - 10.4 04/01/[address] [facility] MCHC 33.0 32.0 - 36.0 04/01/[address] [facility] MCH 28.0 27.0 - 31.0 04/01/[address] [facility] MCV 85.0 80.0 - 98.0 04/01/[address] [facility] Hct 34.4 36.0 - 48.0 04/01/[address] [facility] Platelet 255 133 - 450 04/01/[address] [facility] MPV 8.3 7.4 - 10.4 04/01/[address] [facility] Segs 84.7 45.0 - 75.0 04/01/[address] [facility] Monocytes # 0.5 0.0 - 0.8 04/01/[address] [facility] Lymphocytes # 0.8 1.0 - 5.5 04/01/[address] [facility] Segs-Bands # 7.1 1.5 - 8.1 04/01/[address] [facility] Basophils 0.2 0.0 - 1.0 04/01/[address] [facility] Monocytes 6.1 2.0 - 12.0 04/01/[address] [facility] Lymphocytes 9.0 20.0 - 40.0 04/01/2017 [facility] CHEM PANEL A/G Ratio 0.9 0.7 - 1.6 12/29/2016 [facility] CHEM PANEL Globulin 3.8 2.7 - 4.2 12/29/2016 [facility] CHEM PANEL AGAP 12.1 10.0 - 20.0 12/29/2016 [facility] CHEM PANEL B/C Ratio 7 6 - 25 12/29/2016 [facility] CHEM PANEL eGFR 124 12/29/2016 Result Comment: The eGFR is calculated using the CKD-EPI formula. In most young, healthy individuals the eGFR will be >90 mL/min/1.73m2. The eGFR declines with age. An eGFR of 60-89 may be normal in some populations, particularly the elderly, for whom the CKD-EPI formula has not been extensively validated. Use of the eGFR is not recommended in the following populations:

Individuals with unstable creatinine concentrations, including patients and those with serious co-morbid conditions.

Patients with extremes in muscle mass or diet.

The data above are obtained from the National Kidney Disease Education Program (NKDEP) which additionally recommends that when the eGFR is used in patients with extremes of body mass index for purposes of drug dosing, the eGFR should be multiplied by the estimated BMI. [facility] CHEM PANEL ALT 21 0 - 65 12/29/2016 [facility] CHEM PANEL Albumin Lvl 3.3 3.5 - 5.0 12/29/2016 [facility] CHEM PANEL Alk Phos 115 39 - 136 12/29/2016 [facility] CHEM PANEL AST 16 0 - 37 12/29/2016 [facility] CHEM PANEL Bili Total 0.4 0.2 - 1.3 12/29/2016 [facility] CHEM PANEL Calcium Lvl 7.9 8.5 - 10.5 12/29/2016 [facility] CHEM PANEL Total Protein 7.1 6.4 - 8.4 12/29/2016 [facility] CHEM PANEL Potassium Lvl 4.1 3.5 - 5.1 12/29/2016 [facility] CHEM PANEL Chloride Lvl 103 95 - 109 12/29/2016 [facility] CHEM PANEL Glucose Lvl 106 70 - 99 12/29/2016 [facility] CHEM PANEL CO2 27 24 - 32 12/29/2016 [facility] CHEM PANEL Creatinine Lvl 0.57 0.50 - 1.40 12/29/2016 [facility] CHEM PANEL BUN 4 7 - 22 12/29/2016 [facility] CHEM PANEL Sodium Lvl 138 135 - 145 12/29/2016 [facility] CHEM PANEL eGFR 125 12/29/2016 Result Comment: The eGFR is calculated using the CKD-EPI formula. In most young, healthy individuals the eGFR will be >90 mL/min/1.73m2. The eGFR declines with age. An eGFR of 60-89 may be normal in some populations, particularly the elderly, for whom the CKD-EPI formula has not been extensively validated. Use of the eGFR is not recommended in the following populations:

Individuals with unstable creatinine concentrations, including patients and those with serious co-morbid conditions.

Patients with extremes in muscle mass or diet.

The data above are obtained from the National Kidney Disease Education Program (NKDEP) which additionally recommends that when the eGFR is used in patients with extremes of body mass index for purposes of drug dosing, the eGFR should be multiplied by the estimated BMI. [facility] CHEM PANEL AGAP 14.1 10.0 - 20.0 12/29/2016 [facility] CHEM PANEL Creatinine Lvl 0.56 0.50 - 1.40 12/29/2016 [facility] CHEM PANEL BUN 5 7 - 22 12/29/2016 [facility] CHEM PANEL Glucose Lvl 106 70 - 99 12/29/2016 [facility] CHEM PANEL Chloride Lvl 103 95 - 109 12/29/2016 [facility] CHEM PANEL Potassium Lvl 4.1 3.5 - 5.1 12/29/2016 [facility] CHEM PANEL Sodium Lvl 138 135 - 145 12/29/2016 [facility] CHEM PANEL Calcium Lvl 8.3 8.5 - 10.5 12/29/2016 [facility] CHEM PANEL CO2 25 24 - 32 12/29/2016 [facility] HEMATOLOGY MCV 83.6 80.0 - 98.0 12/29/2016 [facility] HEMATOLOGY MCHC 32.1 32.0 - 36.0 12/29/2016 [facility] HEMATOLOGY Hct 34.4 36.0 - 48.0 12/29/2016 [facility] HEMATOLOGY MCH 26.8 27.0 - 31.0 12/29/2016 [facility] HEMATOLOGY RDW 16.6 11.5 - 14.5 12/29/2016 [facility] HEMATOLOGY WBC 4.7 3.7 - 10.4 12/29/2016 [facility] HEMATOLOGY RBC 4.12 4.20 - 5.40 12/29/2016 [facility] HEMATOLOGY MPV 8.7 7.4 - 10.4 12/29/2016 [facility] HEMATOLOGY Platelet 241 133 - 450 12/29/2016 [facility] HEMATOLOGY Hgb 11.0 12.0 - 16.0 12/29/2016 [facility] HEMATOLOGY Monocytes # 0.4 0.0 - 0.8 12/29/2016 [facility] HEMATOLOGY Eosinophils # 0.2 0.0 - 0.5 12/29/2016 [facility] HEMATOLOGY Lymphocytes # 1.8 1.0 - 5.5 12/29/2016 [facility] HEMATOLOGY Segs 45.6 45.0 - 75.0 12/29/2016 [facility] HEMATOLOGY Monocytes 9.5 2.0 - 12.0 12/29/2016 [facility] HEMATOLOGY Lymphocytes 38.9 20.0 - 40.0 12/29/2016 [facility] HEMATOLOGY Eosinophils 5.0 0.0 - 4.0 12/29/2016 [facility] HEMATOLOGY Basophils 1.0 0.0 - 1.0 12/29/[address] [facility] Segs-Bands # 2.2 1.5 - 8.1 12/29/2016 [facility] CARDIAC ENZYMES Troponin-I <0.02 0.00 - 0.40 12/28/2016 [facility] CARDIAC ENZYMES Total CK 31 12 - 191 12/28/2016 [facility] CARDIAC ENZYMES Troponin-I <0.02 0.00 - 0.40 12/28/2016 [facility] CARDIAC ENZYMES Total CK 28 12 - 191 12/28/2016 [facility] CARDIAC ENZYMES Troponin-I <0.02 0.00 - 0.40 12/28/2016 [facility] CARDIAC ENZYMES Total CK 23 12 - 191 12/28/2016 [facility] CHEM PANEL Magnesium Lvl 2.0 1.8 - 2.4 12/28/2016 [facility] CHEM PANEL Phosphorus 3.5 2.5 - 4.5 12/28/2016 [facility] CHEM PANEL eGFR 134 12/28/2016 Result Comment: The eGFR is calculated using the CKD-EPI formula. In most young, healthy individuals the eGFR will be >90 mL/min/1.73m2. The eGFR declines with age. An eGFR of 60-89 may be normal in some populations, particularly the elderly, for whom the CKD-EPI formula has not been extensively validated. Use of the eGFR is not recommended in the following populations:

Individuals with unstable creatinine concentrations, including patients and those with serious co-morbid conditions.

Patients with extremes in muscle mass or diet.

The data above are obtained from the National Kidney Disease Education Program (NKDEP) which additionally recommends that when the eGFR is used in patients with extremes of body mass index for purposes of drug dosing, the eGFR should be multiplied by the estimated BMI. [facility] CHEM PANEL Bili Total 0.3 0.2 - 1.3 12/28/2016 [facility] CHEM PANEL Creatinine Lvl 0.45 0.50 - 1.40 12/28/2016 [facility] CHEM PANEL BUN 10 7 - 22 12/28/2016 [facility] CHEM PANEL Glucose Lvl 109 70 - 99 12/28/2016 [facility] CHEM PANEL Alk Phos 107 39 - 136 12/28/2016 [facility] CHEM PANEL AST 13 0 - 37 12/28/2016 [facility] CHEM PANEL ALT 16 0 - 65 12/28/2016 [facility] CHEM PANEL Albumin Lvl 3.0 3.5 - 5.0 12/28/2016 [facility] CHEM PANEL Total Protein 6.7 6.4 - 8.4 12/28/2016 [facility] CHEM PANEL Calcium Lvl 8.4 8.5 - 10.5 12/28/2016 [facility] CHEM PANEL CO2 27 24 - 32 12/28/2016 [facility] CHEM PANEL Chloride Lvl 105 95 - 109 12/28/2016 [facility] CHEM PANEL Potassium Lvl 3.2 3.5 - 5.1 12/28/2016 [facility] CHEM PANEL Sodium Lvl 139 135 - 145 12/28/2016 [facility] CHEM PANEL A/G Ratio 0.8 0.7 - 1.6 12/28/2016 [facility] CHEM PANEL B/C Ratio 22 6 - 25 12/28/2016 [facility] CHEM PANEL Globulin 3.7 2.7 - 4.2 12/28/2016 [facility] CHEM PANEL AGAP 10.2 10.0 - 20.0 12/28/2016 [facility] HEMATOLOGY PTT 25.9 22.9 - 35.8 12/28/2016 [facility] HEMATOLOGY PT 12.8 12.0 - 14.7 12/28/2016 [facility] HEMATOLOGY INR 0.94 0.85 - 1.17 12/28/2016 [facility] HEMATOLOGY WBC 4.8 3.7 - 10.4 12/28/2016 [facility] HEMATOLOGY MCH 26.9 27.0 - 31.0 12/28/2016 [facility] HEMATOLOGY MCHC 32.8 32.0 - 36.0 12/28/[address] [facility] MPV 8.7 7.4 - 10.4 12/28/2016 [facility] HEMATOLOGY Platelet 212 133 - 450 12/28/2016 [facility] HEMATOLOGY RDW 16.7 11.5 - 14.5 12/28/2016 [facility] HEMATOLOGY RBC 3.81 4.20 - 5.40 12/28/[address] [facility] MCV 82.1 80.0 - 98.0 12/28/2016 [facility] HEMATOLOGY Hct 31.3 36.0 - 48.0 12/28/2016 [facility] HEMATOLOGY Hgb 10.3 12.0 - 16.0 12/28/2016 [facility] HEMATOLOGY Monocytes # 0.6 0.0 - 0.8 12/28/2016 [facility] HEMATOLOGY Eosinophils # 0.1 0.0 - 0.5 12/28/2016 [facility] HEMATOLOGY Lymphocytes # 2.2 1.0 - 5.5 12/28/2016 [facility] HEMATOLOGY Segs-Bands # 1.9 1.5 - 8.1 12/28/[address] [facility] Eosinophils 2.7 0.0 - 4.0 12/28/[address] [facility] Monocytes 11.6 2.0 - 12.0 12/28/[address] [facility] Lymphocytes 45.9 20.0 - 40.0 12/28/2016 [facility] HEMATOLOGY Basophils 0.8 0.0 - 1.0 12/28/2016 [facility] HEMATOLOGY Segs 39.0 45.0 - 75.0 12/28/2016 [facility] URINE AND STOOL UA RBC 4 0 - 2 12/28/2016 [facility] URINE AND STOOL UA CaOx Karley Moderate /HPF None Seen /HPF 12/28/2016 [facility] URINE AND STOOL UA Bacteria Occasional /HPF None Seen /HPF 12/28/2016 [facility] URINE AND STOOL UA Turbidity Clear (12/28/16 5:02 AM) Clear 12/28/2016 [facility] URINE AND STOOL UA Spec Grav 1.047 <=1.030 12/28/2016 [facility] URINE AND STOOL UA Leuk Est Trace *ABN* (12/28/16 5:02 AM) Negative 12/28/2016 [facility] URINE AND STOOL UA Sq Epi Occasional /LPF Few /LPF 12/28/2016 [facility] URINE AND STOOL UA WBC 3 0 - 5 12/28/2016 [facility] URINE AND STOOL UA Ketones Trace mg/dL Negative mg/dL 12/28/2016 [facility] URINE AND STOOL UA Blood Negative (12/28/16 5:02 AM) Negative 12/28/2016 [facility] URINE AND STOOL UA Glucose Negative mg/dL Negative mg/dL 12/28/2016 [facility] URINE AND STOOL UA Protein Negative mg/dL Negative mg/dL 12/28/2016 [facility] URINE AND STOOL UA Bili Negative *NA* (12/28/16 5:02 AM) Negative 12/28/2016 [facility] URINE AND STOOL UA pH 6.0 5.0 - 8.0 12/28/2016 [facility] URINE AND STOOL UA Nitrite Negative (12/28/16 5:02 AM) Negative 12/28/2016 [facility] URINE AND STOOL UA Urobilinogen 2.0 0.1 - 1.0 12/28/2016 [facility] URINE AND STOOL UA Color Yellow *NA* (12/28/16 5:02 AM) Yellow 12/28/2016 [facility] Pathology Reports No Data Provided for This Section Diagnostic Reports Report Value Date Source Chest 1view DX PROCEDURE: Ches t, AP on 03/25/2018 at 1558 hours. INDICATION: Shortness of breath. Palpitations with shortness of breath and patient passed out this weekend. Previous history of hypokalemia last month. COMPARISON: Chest radiographs dated 02/17/2018 and 08/21/2010. FINDINGS: Stable scarring and volume loss in the right lower chest. No pleural effusion or pneumothorax. Right upper lung and left lung are clear. Cardiac silhouette is not enlarged. Stable left chest port catheter. Catheter tip overlies the superior atrial caval junction. Plate and screws are partially seen overlying the midline lower cervical spine and was previously seen in January 2018. IMPRESSION: 1. No acute abnormality identified. 2. Stable scarring in the right lower ch est with volume loss. SL: [id number]-M 03/25/2018 [facility] Abdomen 2 views DX Patient Dameon parker: ANGELA ALLEN : 1965; Age: 52 years y/o Female MR: [id number] Study: Abdomen 2 views DX dated 02/18/2018. Clinical Indication: - sbo; Comparison: CT abdomen dated 04/01/2017. Anastomotic sutures are seen in the left upper abdomen. Surgical clips are seen about the right abdomen and pelvis. Lateral blunting of the right costophrenic angle may represent minimal right pleural effusion. There is question of a thickened nondilated bowel loop in the lateral left mid abdomen which could represent a nonspecific enteritis or colitis. Slightly prominent small bowel loop is seen in the medial right lower abdomen measuring 3.1 cm in greatest width. Moderate amount of stool seen about the right colon. No other dilated loops of bowel identified about the abdomen or pelvis. No free intraperitoneal air. SL: [id number]-PC 02/18/2018 [facility] 1view DX Clinical Indica tion: - palpitations, Pt came in for 'palpitations', nausea and headache x 1 week worse today 1 hour ago Comparison: 20 10/20/2009 FINDINGS: The frontal chest radiograph shows normal lung volumes without interstitial or airspace opacities, pleural effusions or pneumothorax. The cardiomediastinal contours are normal. The trachea is midline. Left IJ chest port terminates in the lower SVC. There are no clinically significant osseous abnormalities noted. IMPRESSION: No chest radiographic evidence of acute cardiopulmonary disease. SL: [id number] 02/17/2018 [facility] Abdomen wo IV contrast CT CT A BDOMEN WITHOUT CONTRAST INDICATION: Intractable nausea and vomiting, CT DLP: 439.35 mGy-cm - intractable N/V, h/o gastric bypass COMPARISON: CT abdomen 12/28/2016 DISCUSSION: There is stable scarring or atelectasis of the right lung base. Cholecystectomy clips are in place. The liver, spleen, pancreas, adrenal glands, and kidneys appear grossly normal in morphology. There are postoperative changes of the stomach and small bowel related to gastric bypass surgery. A few distended small bowel loops are visible in the lower abdomen. No transition point is identified in the abdomen. A similar appearance is seen in the comparison CT from 12/28/2016. The pelvis is not included in the study. The visible large bowel is not collapsed. The abdominal aorta is normal in caliber. BONES: No acute bony abnormalities are seen. IMPRESSION: Postoperative changes of the stomach and small bowel, presumably related to gastric bypass. There a few nonspecific mildly distended small bowel loops of the lower abdomen. No transition point is identified. The pelvis is not included in the study. A similar appearance is seen in the comparison CT. SL:16 04/01/2017 [facility] CTA CTA PULMONARY ARTERI ES AND ROUTINE CT CHEST HISTORY: Chest pain, abdominal pain, history of MRSA; TECHNIQUE: Thin collimation axial images of the pulmonary arteries and routine CT chest with IV contrast. Coronal and sagittal reformatted images were utilized. 3-D reconstructions were obtained. 100 cc IV Omnipaque, DLP 974.40 COMPARISON: Chest radiography dated August 21, 2010 FINDINGS: No pulmonary embolism. Thoracic aorta is unremarkable. No mediastinal mass, adenopathy, or fluid collection. Heart size normal. No pericardial effusion. Left Port-A-Cath is in place. Mild platelike atelectasis in the right lung base. Lungs are otherwise clear. No pleural effusion or pneumothorax. Visualized portion of the upper abdominal contents demonstrates cholecystectomy and changes of gastric bypass no acute osseous abnormality is seen. Lower cervical fusion is partially visualized. IMPRESSION: 1. No pulmonary embolism or acute abnorm ality. 2. Left Port-A-Cath, cholecystectomy, ga stric bypass, cervical fusion. SL: [id number] 12/28/2016 [facility] TECHNIQUE: Contiguous transaxial images of the abdomen were performed from the lung bases to the superior iliac crest without IV contrast. COMPARISON: None CLINICAL HX: Abdominal pain, acute; chest pain; hx mrsa - 100cc omni 350 iv; dlp: 553.41. CT ABDOMEN: Lower Chest: There is mild right basilar scarring. GI Tract: Postoperative changes related to gastric bypass are evident. There is mild nonspecific distention of afferent loop. Moderate amount retained stool is present in the colon. There is oral contrast in the distal small bowel and colon. No evidence to suggest bowel obstruction. Small and large bowel in the pelvis is not included on the current CT abdomen study. There is no evidence for free fluid or free air in the abdomen. Tract and Retroperitoneum: There is residual contrast in the collecting system both kidneys. Findings consistent with recent contrast CT study. No hydronephrosis.. Renal cortical volume is reasonably well preserved without evidence for cortical scarring. Abdominal viscera: Noncontrast images of the liver are unremarkable. Status post cholecystectomy. Spleen, pancreas and both adrenal glands are grossly unremarkable on the noncontrast images. Lymph Nodes: No enlarged lymph nodes are visualized. Vasculature: No evidence for AAA. Bone and Soft tissues: No significant bony abnormality is noted. IMPRESSION: Postoperative changes related to gastric bypass are evident. Mild nonspecific distention of the afferent loop. Moderate amount of retained stool is present in the colon. No evidence to suggest small or large bowel obstruction. Bowel segments in the pelvis are not included on the current CT abdomen study. Status post cholecystectomy. SL: [id number] 12/28/2016 [facility] Consultation Notes No Data Provided for This Section Discharge Summaries No Data Provided for This Section History and Physicals No Data Provided for This Section Vital Signs Vital Sign Value Date Comments Source Systolic (mm Hg) 151 06/08/2019 [facility] Diastolic (mm Hg) 94 06/08/2019 [facility] Heart Rate 90 06/08/2019 [facility] Respitory Rate 17 06/08/2019 [facility] Temperature Oral (F) 98.2 F 06/08/2019 [facility] Height 172.72 cm 06/08/2019 [facility] BMI Calculated 25.9 06/08/2019 [facility] Weight 77.273 06/08/2019 [facility] Systolic (mm Hg) 102 03/26/2018 [facility] Diastolic (mm Hg) 55 03/26/2018 [facility] Heart Rate 87 03/26/2018 [facility] Temperature Oral (F) 98.2 F 03/26/2018 [facility] Respitory Rate 16 03/26/2018 [facility] Systolic (mm Hg) 141 03/26/2018 [facility] Diastolic (mm Hg) 83 03/26/2018 [facility] Respitory Rate 20 03/26/2018 [facility] Heart Rate 86 03/26/2018 [facility] Temperature Oral (F) 98.2 F 03/26/2018 [facility] Respitory Rate 20 03/26/2018 [facility] Heart Rate 85 03/26/2018 [facility] Systolic (mm Hg) 179 03/26/2018 [facility] Diastolic (mm Hg) 99 03/26/2018 [facility] Temperature Oral (F) 98.5 F 03/26/2018 [facility] Height 172.7 cm 03/26/2018 [facility] Weight 62.73 03/26/2018 [facility] BMI Calculated 21.03 03/26/2018 [facility] Height 172.72 cm 03/25/2018 [facility] Weight 62.727 03/25/2018 [facility] BMI Calculated 21.03 03/25/2018 [facility] Respitory Rate 16 02/19/2018 [facility] Systolic (mm Hg) 112 02/19/2018 [facility] Diastolic (mm Hg) 67 02/19/2018 [facility] Temperature Oral (F) 98.3 F 02/19/2018 [facility] Heart Rate 78 02/19/2018 [facility] Temperature Oral (F) 98.2 F 02/19/2018 [facility] Systolic (mm Hg) 114 02/19/2018 [facility] Diastolic (mm Hg) 76 02/19/2018 [facility] Heart Rate 78 02/19/2018 [facility] Respitory Rate 16 02/19/2018 [facility] Temperature Oral (F) 98.4 F 02/19/2018 [facility] Systolic (mm Hg) 145 02/19/2018 [facility] Diastolic (mm Hg) 65 02/19/2018 [facility] Respitory Rate 16 02/19/2018 [facility] Heart Rate 75 02/19/2018 [facility] BMI Calculated 22.55 02/18/2018 [facility] Weight 67.273 02/18/2018 [facility] Height 172.72 cm 02/18/2018 [facility] Height 172.72 cm 02/17/2018 [facility] Weight 63.636 02/17/2018 [facility] BMI Calculated 21.33 02/17/2018 [facility] Systolic (mm Hg) 143 07/12/2017 [facility] Diastolic (mm Hg) 72 07/12/2017 [facility] Temperature Oral (F) 99 F 07/12/2017 [facility] Heart Rate 89 07/12/2017 [facility] Respitory Rate 18 07/12/2017 [facility] Systolic (mm Hg) 166 07/12/2017 [facility] Diastolic (mm Hg) 105 07/12/2017 [facility] Respitory Rate 18 07/12/2017 [facility] Heart Rate 94 07/12/2017 [facility] Temperature Oral (F) 98.6 F 07/12/2017 [facility] Respitory Rate 18 07/12/2017 [facility] Systolic (mm Hg) 158 07/12/2017 [facility] Diastolic (mm Hg) 99 07/12/2017 [facility] Temperature Oral (F) 98.6 F 07/12/2017 [facility] Heart Rate 74 07/12/2017 [facility] Weight 65 1 [facility] BMI Calculated 21.79 07/12/2017 [facility] Height 172.72 cm 07/12/2017 [facility] Systolic (mm Hg) 136 05/19/2017 [facility] Diastolic (mm Hg) 86 05/19/2017 [facility] Respitory Rate 17 05/19/2017 [facility] Heart Rate 79 05/19/2017 [facility] Temperature Oral (F) 98.5 F 05/19/2017 [facility] Systolic (mm Hg) 155 05/19/2017 [facility] Diastolic (mm Hg) 94 05/19/2017 [facility] Respitory Rate 17 05/19/2017 [facility] Temperature Oral (F) 98.4 F 05/19/2017 [facility] Heart Rate 76 05/19/2017 [facility] Temperature Oral (F) 98.2 F 05/19/2017 [facility] Systolic (mm Hg) 147 05/19/2017 [facility] Diastolic (mm Hg) 98 05/19/2017 [facility] Respitory Rate 17 05/19/2017 [facility] Heart Rate 92 05/19/2017 [facility] Height 172.72 cm 05/19/2017 [facility] Weight 61.364 05/19/2017 [facility] BMI Calculated 20.57 05/19/2017 [facility] Temperature Oral (F) 98.0 F 04/04/2017 [facility] Respitory Rate 17 04/04/2017 [facility] Heart Rate 69 04/04/2017 [facility] Systolic (mm Hg) 115 04/04/2017 [facility] Diastolic (mm Hg) 73 04/04/2017 [facility] Systolic (mm Hg) 117 04/04/2017 [facility] Diastolic (mm Hg) 70 04/04/2017 [facility] Respitory Rate 17 04/04/2017 [facility] Heart Rate 75 04/04/2017 [facility] Temperature Oral (F) 98.9 F 04/04/2017 [facility] Heart Rate 78 04/04/2017 [facility] Temperature Oral (F) 98.6 F 04/04/2017 [facility] Systolic (mm Hg) 109 04/04/2017 [facility] Diastolic (mm Hg) 62 04/04/2017 [facility] Respitory Rate 18 04/04/2017 [facility] Weight 61.364 04/01/2017 [facility] BMI Calculated 20.57 04/01/2017 [facility] Height 172.72 cm 04/01/2017 [facility] BMI Calculated 20.57 04/01/2017 [facility] Weight 61.364 04/01/2017 [facility] Height 172.72 cm 04/01/2017 [facility] Heart Rate 92 12/29/2016 [facility] Temperature Oral (F) 98.5 F 12/29/2016 [facility] Systolic (mm Hg) 146 12/29/2016 [facility] Diastolic (mm Hg) 95 12/29/2016 [facility] Respitory Rate 17 12/29/2016 [facility] Systolic (mm Hg) 130 12/29/2016 [facility] Diastolic (mm Hg) 84 12/29/2016 [facility] Temperature Oral (F) 98.2 F 12/29/2016 [facility] Heart Rate 104 12/29/2016 [facility] Respitory Rate 17 12/29/2016 [facility] Systolic (mm Hg) 173 12/29/2016 [facility] Diastolic (mm Hg) 91 12/29/2016 [facility] Respitory Rate 17 12/29/2016 [facility] Heart Rate 88 12/29/2016 [facility] Temperature Oral (F) 98.7 F 12/29/2016 [facility] BMI Calculated 22.86 12/29/2016 [facility] Weight 68.182 12/29/2016 [facility] Height 172.72 cm 12/29/2016 [facility] Weight 68.182 12/28/2016 [facility] BMI Calculated 22.86 12/28/2016 [facility] Height 172.72 cm 12/28/2016 [facility] BMI Calculated 22.86 12/28/2016 [facility] Height 172.72 cm 12/28/2016 [facility] Weight 68.182 12/28/2016 [facility] Encounters Location Location Details Encounter Type Encounter Number Reason For Visit Attending Provider ADM Date DC Date Status Source [facility] [place] [facility] [id number] Scott Welsh Jr 09/02/2014 09/03/[address] [place] [facility] [place] [facility] [id number] Scott Welsh Jr 10/07/2014 10/08/2014 [place] [facility] Observation [id number] Max Akhtar 12/28/2016 12/30/2016 [facility] Inpatient [id number] Mariano Moeller 04/01/2017 04/04/2017 [facility] Observation [id number] Thuan Shrestha 05/18/2017 05/19/2017 [facility] Observation [id number] 07/12/2017 07/12/2017 [facility] Emergency [id number] Godwinkacey Migue 07/12/2017 07/12/2017 [facility] Inpatient [id number] Mortensen Perea 02/17/2018 02/19/2018 [facility] Observation [id number] Mortensen Perea 03/25/2018 03/26/2018 [facility] Emergency [id number] Donn Ash 06/08/2019 06/08/2019 [facility] Procedures Procedure Code Date Perfomer Comments Source Appendectomy [id number] [facility] Cholecystectomy [id number] [facility] Gastric bypass [id number] [facility] Hysterectomy [id number] [facility] Incision AND drainage [id number] [facility] Assessment and Plan Assessment and Plan Date Source Extracted from:Title: General Admission H&P * Author: Rick Johnson MD Date: 03/25/18 Impression and Plan -Palpitations Likely secondary to panic attack, sinus tachycardia Cardiology consulted Continue metoprolol -Acute on chronic back pain Patient takes weekly ketamine and has high pain tolerance Use IV morphine, patient states she will also need IV Benadryl along with it She is not amenable to counseling at present time, has opioid dependence -Anxiety disorder Continue clonazepam -Hypertension Continue home medication -GERD Continue PPI -Hypokalemia Repleted DVT ppx: lovenox DISPO: Expect 1 Mn stay 03/26/2018 [facility] Extracted from:Title: GI Author: Gisele Patiño NP Date: 02/19/18 Progress Note - Daily [facility] Completed: Monday, FEBRUARY 19, 2018, 12:11 by Gisele Patiño NP RM: 336 - 2W, SE C3AS ANGELA ALLEN 52y (: 1965) F Attending: Festus Perea MD Service: Internal Medicine Reason for Admission: HEART PALPITATIONS Working DRG: Code status: None Specified=FULL CODE Current diet: Isolation: Contact Allergies: Inapsine, aspirin, Toradol SUBJECTIVE pt states she feel significantly better today no n/v reprots some diarrhea after taking the erythromycin tolerated diet this AM +flatus and BM wants to go home OBJECTIVE 24hr Labs 02/19 0633 Glucose Lvl 104 H BUN 9 Creatinine Lvl 0.60 Sodium Lvl 147 H Potassium Lvl 4.1 Chloride Lvl 113 H CO2 27 AGAP 11.1 Calcium Lvl 7.4 L eGFR 121 02/18 2125 Potassium Lvl 4.1 02/18 0915 Total CK 14 Troponin-I 0.03 CK MB <1.0 02/18 0510 TSH 1.270 Tolbert still necessary (Yes/No): Line still necessary (Yes/No): Vitals Tmp(F) Pulse BP RR SpO2 FIO2 02/19 12:02 98.3 78 112/67 1 6 100 --- 02/19 08:03 98.2 78 114/76 1 6 100 --- 02/19 04:00 98.4 75 145/65 1 6 100 --- 02/19 00:00 97.7 76 120/82 1 6 100 --- 02/18 20:00 99 92 123/80 16 100 --- 24 Hr Tmax: 99.5F (37.50c) at 02/18 16:0 2 Vital Signs are the last 5 in the past 48 hours. Date Wt(kg) Wt(lb) Ht(cm) Ht(in) Method 02/17 (initial) 63.64 140.00 Measured 02/17 172.72 68.00 Stated I&O Record In Out Bal 02/19 24hr Tot 18 0 18 02/18 24hr Tot 1749 0 1749 Medications (40) Active Scheduled Meds (11): 02/19/18 cloNIDine (cloNIDine 0.3 mg/24 hr transdermal film, extended release) 1 patch TOP qWeek 02/18/18 clonazePAM (KlonoPIN) 0.5 mg PO TID 02/18/18 clonazePAM (KlonoPIN) 1 mg PO B edtime 02/18/18 erythromycin 50 mg PO Bedtime 02/19/18 famotidine (Pepcid) 20 mg PO Q1 2H 02/19/18 lisinopril 5 mg PO Daily 02/18/18 metoprolol (metoprolol tartrate ) 50 mg PO Q12H 02/19/18 potassium chloride (potassium c hloride 20 mEq oral tablet, extended release) 20 mEq PO Q12H 02/18/18 sodium chloride (Saline Flush 0 .9%) 10 ml IVP Q12H 02/19/18 thiamine 100 mg PO Daily 02/18/18 tizanidine (Zanaflex) 6 mg PO Q 4H Unscheduled Meds: None PRN Meds (24): 02/17/18 calcium gluconate + Sodium Chlo ride 0.9% IV 100 mL 2 gm IVPB PRN 240 ml/hr 02/17/18 calcium gluconate + Sodium Chlo ride 0.9% IV 120 mL 3 gm IVPB PRN 300 ml/hr 02/18/18 diphenhydrAMINE (Benadryl) 25 m g PO Q6H 02/18/18 diphenhydrAMINE (Benadryl) 25 m g IV Q6H 02/19/18 heparin flush 500 unit IVP Q30D 02/17/18 magnesium oxide 800 mg PO PRN 02/17/18 magnesium sulfate 1 gm IVPB PRN 100 ml/hr 02/17/18 magnesium sulfate 2 gm IVPB PRN 25 ml/hr 02/18/18 metoclopramide (Reglan) 5 mg IV Q6H 02/18/18 morphine Sulfate 2 mg IV Q4H 02/17/18 nitroglycerin (nitroglycerin SL Tab) 0.4 mg SL Q5Min 02/17/18 ondansetron 4 mg PO Q8H 02/17/18 potassium chloride + Sodium Chl oride 0.9% IV 95 mL 10 mEq IVPB PRN 100 ml/hr 02/17/18 potassium chloride 20 mEq PO ND N 02/17/18 potassium chloride 20 mEq NJ ND N 02/17/18 potassium phosphate + Sodium Ch loride 0.9% IV 250 mL 15 mmol IVPB PRN 62.5 ml/hr 02/17/18 potassium phosphate + Sodium Ch loride 0.9% IV 250 mL 30 mmol IVPB PRN 62.5 ml/hr 02/17/18 potassium phosphate-sodium phos phate (potassium phosphate-sodium phosphate 250 mg-280 mg-160 mg oral powder for reconstitution) 2 pkt PO PRN 02/19/18 promethazine (Phenergan) 12.5 m g PO Q4H 02/17/18 sodium chloride (Saline Flush 0 .9%) 10 ml IVP PRN 02/17/18 sodium chloride (Saline Flush 0 .9%) 10 ml IVP PRN 02/17/18 sodium phosphate + Dextrose 5% in Water IV 250 mL 15 mmol IVPB PRN 62.5 ml/hr 02/17/18 sodium phosphate + Dextrose 5% in Water IV 250 mL 30 mmol IVPB PRN 62.5 ml/hr 02/18/18 zolpidem 5 mg PO Bedtime One Time Meds (5): 02/18/18 (Deleted) morphine Sulfate 2 m g IVP ONCE 02/18/18 (Completed) morphine Sulfate 2 mg IVP ONCE 02/18/18 (Deleted) potassium chloride 4 0 mEq IV ONCE 02/18/18 (Completed) potassium chloride (K-Dur 20) 40 mEq PO ONCE 02/18/18 (Completed) promethazine + sod ium chloride 20 mL (Phenergan + sodium chloride 20 mL) 12.5 mg IV Central ONCE 123 ml/hr Continuous Infusions: None General: No acute distress. HENT: Normocephalic Neck: Supple, Non-tender. Respiratory: Lungs are clear to auscultation, Respirations are non-labored, Cardiovascular: Normal rate, Regular rhythm, No murmur Gastrointestinal: Soft, Non-tender, Non-distended. Integumentary: Warm, Dry, [place]. Neurologic: Alert, Oriented x3 Psychiatric: Cooperative, Appropriate mood and affect. IMPRESSION 1. gastroparesis flare -surgically induced gastroparesis -s/p Andria en Y gastric bypass 2. Epigastric pain- resolved 3. Nausea and vomiting- resolved 4. Anemia- no reprots of acute GI bleedi ng 5. h/o a fib RECOMMENDATIONS 1. Continue prokinetics 2. Antiemetics PRN 3. Gastroparesis diet discussed 4.Follow up with established GI Dr. Corina baker in 1-2 weeks GI Attending I have examined the patient with the Nurse Practitioner and confirmed the essential components of history, physical examination, diagnosis and treatment plan. I agree with the patient's care as documented by the Nurse Practitioner. Extracted from:Title: GI Consult * Author: Robert Wesley MD Date: 02/18/18 Impression and Plan IMPRESSION 1. Gastroparesis flare 2. Epigastric pain 3. Nausea and vomiting 4. Anemia- no reprots of acute GI bleedi ng 5. s/p Lucien en Y gastric bypass 6. h/o a fib 7. electrolyte abnormalities RECOMMENDATIONS 1. Reglan BID and Erythromycin 50 mg qHS 2. Antiemetics PRN 3. Gastroparesis diet, advance as tolera brandt 4. Monitor H/H and for acute GI blood lo ss GI Attending I have examined the patient with the Nurse Practitioner and confirmed the essential components of history, physical examination, diagnosis and treatment plan. I agree with the patient's care as documented by the Nurse Practitioner. Surgically induced gastroparesis Prokinetic agents KUB to evulate Bowel gas pattern 02/19/2018 [facility] Extracted from:Title: Cardiology Consult ation Author: Vicente Perkins MD Date: 07/12/17 Impression and Plan Near-syncope, possible volume depletion Nausea vomiting and gastroparesis History of gastric lap band surgery in October 2016 SVT Hypertension Admit for observation Hydration and replacement of potassium Initial cardiac enzymes and EKG unremarkable for ischemia Near syncopal episode is likely secondary to volume depletion Patient seems to have recurrent episodes of nausea, vomiting and gastroparesis for which she is planning on seeing a pediatric genetic counselor [facility] in the near future Echocardiogram done at [facility] within the past 6 months confirmed normal LV systolic function with an unremarkable Doppler examination Avoid diuretics which are potassium wasting. Can continue spironolactone as needed Thank you for this consultation. I shall follow her with you 07/12/2017 [facility] Extracted from:Title: Discharge Summary * Author: Thuan Shrestha MD Date: 05/19/17 Discharge Plan Discharge Summary Plan Discharge Status: improved. Discharge instructions given: to patient. Discharge disposition: discharge to home self care. Prescriptions: written and given to patient. Diagnosis Intractable vomiting Acute on Chronic Pain . Course Improving. Education and Follow-up Counseled: patient. 05/19/2017 [facility] Extracted from:Title: Clinical Document Author: Sylvie Ac Date: 04/04/17 PAIN MANAGEMENT: SUBJECTIVE: Patient notes that current pain is fluctuating. Current pain: 7/10. Persistent abdominal pain. No acute events overnight. Tolerating PO intake well. Patient was able to rest comfortably on last pm. Last bowel movement was on this AM. Patient notes persistent nausea. No vomiting No allergies to current pain medications. REVIEW OF SYSTEMS: negative unless otherwise stated in HPI. PHYSICAL EXAM: GENERAL: alert, awake, and oriented. Well-nourished, well-developed in no apparent distress, lying in exam bed HEENT: normocephalic, atraumatic, trachea midline, EOMI SKIN: warm, dry, intact RESPIRATORY: unlabored breathing CARDIOVASCULAR: regular rate GASTROINTESTINAL: nondistended MUSCULOSKELETAL: no edema or cyanosis NEUROLOGICAL: spontaneous movement of all limbs ASSESSMENT AND PLAN: Ms. Allen is a 51 yo woman with a past medical history of anemia, SVT, gastroparesis, chronic neck pain s/p cervical fusion and chronic Lower back pain, MVP, HTN that presents with intractable vomiting and nausea of unclear etiology. She is currently pending GI consultation. No surgical interventions plans per general surgery. Patient is currently NPO. We plan to defer oral medications until patient is able to tolerate PO. We have been consulted to assist with the patient's pain management during her hospital stay. From a pain management perspective, we plan to continue Dilaudid 1 mg IV q3hrs for severe breakthrough pain only. She was advised to minimize use as opioids as they may worsen nausea, constipation, and abdominal pain. She voiced understanding. Discussed medication usage in great detail with patient. At this time, she wishes to not resume home regimen. If symptoms continue to improve, we will plan to restart home regimen including Oxycontin 20 mg BID and Percocet 10/325 mg TID PRN pain. She had an appointment with Dr. Guevara on 04/04/17. We will provide a discharge prescription in the future as needed. We will continue to monitor and make adjustments as needed. Please call with any questions or concerns. Attending: Mariano Moeller MD Service: Internal Medicine Code status: None Specified=FULL CODE Reason for Admission: INTRACTABLE VOMITING Working DRG: None Documented Isolation: Contact [Ordered] Consulting Physicians: Joo Ziegler MD Office: Service: Gastroenterology Elliot Chapa MD Office: Service: Medicine, Neurology Jordan Da Silva MD Office: (no service on file) Cyndy Phan MD Office: Service: Gastroenterology Carol Hackett MD Office: Service: Gastroenterology, Medicine Kymberly Natarajan MD Office: Service: General Surgery None Specified=FULL CODE Allergies: Inapsine, aspirin, Toradol, morphine Vitals Tmp(F) Pulse BP RR SpO2 FIO2 04/04 09:04 ---- 75 ----- -- --- --- 04/04 08:00 98.9 75 117/70 1 7 97 --- 04/04 03:41 98.6 78 109/62 1 8 96 --- 04/04 00:00 98.1 69 132/81 1 8 97 --- 04/03 19:28 98.9 72 123/74 1 8 99 --- 24 Hr Tmax: 98.9F (37.17c) at 04/04 08:0 0 Vital Signs are the last 5 in the past 48 hours. Medications (18) Active Scheduled Meds (9): 04/01/17 amLODIPine 5 mg PO Daily 04/01/17 digoxin (digoxin 125 mcg (0.125 mg) oral tablet) 0.125 mg PO Daily 04/01/17 hydrALAZINE 10 mg IV Q6H 04/01/17 lisinopril 2.5 mg PO Daily 04/01/17 metoprolol (metoprolol tartrate ) 100 mg PO BID 04/01/17 pantoprazole (Protonix) 40 mg P O Daily 04/01/17 promethazine (Phenergan) 50 mg PO TID 04/01/17 tizanidine (Zanaflex) 6 mg PO T ID 04/01/17 trazodone (trazodone 50 mg oral tablet) 50 mg PO Bedtime Unscheduled Meds: None PRN Meds (7): 04/01/17 acetaminophen-codeine (Tylenol with Codeine #4 oral tablet) 1 tab PO Q4H 04/01/17 cloNIDine (cloNIDine 0.1 mg ora l tablet) 0.1 mg PO PRN 04/01/17 hydromorphone (Dilaudid) 1 mg I [employer] Q3H 04/01/17 metoclopramide (Reglan) 10 mg I [employer] Q6H 04/01/17 ondansetron 4 mg IVP Q6H 04/01/17 promethazine + sodium chloride 0.9% INJ 50 mL (Phenergan + sodium chloride 0.9% INJ 50 mL) 25 mg IVPB Q4H 153 ml/hr 04/01/17 sodium chloride (Saline Flush 0 .9%) 10 ml IVP PRN One Time Meds (1): 04/03/17 (Completed) potassium chloride 40 mEq PO ONCE Continuous Infusions (1): 04/01/17 sodium chloride 0.9% 1000 ml IN J 1,000 mL 1,000 mL 100 ml/hr I&O Record In Out Bal 04/03 24hr Tot 2170 0 2170 04/02 24hr Tot 262 0 262 Lines, Tubes, and Drains: 04/01/2017 02:03 Central Lines: Subclavi an, left Implanted port Single Labs (Last four charted values) WBC 5.5 (APR 02) 8.4 (APR 01) Hgb L 10.2 (APR 02) L 11.4 (APR 01) Hct L 31.1 (APR 02) L 34.4 (APR 01) Plt 203 (APR 02) 255 (APR 01) Na 141 (APR 03) 140 (APR 02) 139 (APR 01) K L 3.1 (APR 03) C 2.9 (APR 02) L 3.1 (APR 01) CO2 25 (APR 03) 24 (APR 02) 27 (APR 01) Cl H 110 (APR 03) 106 (APR 02) 104 (APR 01) Cr 0.74 (APR 03) 0.62 (APR 02) 0.60 (APR 01) BUN 15 (APR 03) 13 (APR 02) 9 (APR 01) Glucose Random H 129 (APR 03) H 104 (APR 02) H 126 (APR 01) Mg 1.9 (APR 03) 2.1 (APR 02) Phos 3.1 (APR 03) Ca L 7.6 (APR 03) 8.6 (APR 02) 8.7 (APR 01) Addendum by Gopi Almeida MD on 04/06/2017 15:32 Agree with above assessment and plan. Continue with pain meds including Dilaudid and patient to go back on home regimen with oxycodone upon discharge, to f/u with pain physician. Counseled on meds. Extracted from:Title: Clinical Document Author: Joo Ziegler MD Date: 04/03/17 HISTORY OF PRESENT ILLNESS: This is a 51-year-old woman with multiple previous admissions to [facility] for nausea, vomiting and epigastric pain. The patient has a past medical history significant for severe gastroparesis secondary to anastomotic stricture from previous gastric bariatric surgery. She now has Gastric lucien-en-y bypass anatomy - hx of gastric sleeve for bariatric purpose with gastric body stricture s/p balloon dilations in past which were unsuccessfull and then s/p lucien-en-y since . Subsequent to that, she has suffered from small to persistent bouts of nausea, vomiting, and epigastric abdominal pain. She had these sympotms prior to the surgery as well. She also suffered from iron- deficiency anemia. She also mentions that since her surgery, she has had chronic diarrhea. Her main complaint at this time nausea and vomiting. She does have some mild midepigastric abdominal pain which is chronic in nature. She has intermittent bouts of nausea and vomiting. She also notes some loose watery stools on a daily basis after eating. The patient has failed to follow up in the office despite multiple requests to do so. The patient denies any underlying heartburn, acid reflux, dysphagia, odynophagia, hematemesis, melena, or hematochezia. She denies any recent travel or ill contacts, unusual food ingestion, or antibiotic use prior to illness. She is on chronic narcotics. EGD 03/02/17 at [facility] showing normal esophagus, [place], small gastric pouch and anatomy consistent with lucien-en-y bypass, with normal gastro-jejunal anastamosis, no stricture, normal efferent jejunal limb. PAST MEDICAL HISTORY: 1. Hypertension. 2. Chronic back pain. 3. Migraine headaches. 4. Recurrent nausea and vomiting. 5. Chronic abdominal pain. 6. Chronic diarrhea. 7. Small-bowel obstruction. 8. Gastric outlet obstruction. 9. Gastroparesis. PAST SURGICAL HISTORY: Gastric anastomotic stricture from previous vertical banded gastroplasty from which she subsequently underwent a partial gastrectomy and Lucien-en-Y reconstruction, appendectomy, hysterectomy, cholecystectomy, and vertical banded gastroplasty, incision and drainage of tooth abscesses. PERSONAL AND SOCIAL HISTORY: No tobacco, no alcohol, or drug abuse. ALLERGIES: KETOROLAC, DROPERIDOL, MORPHINE, AND ASPIRIN. FAMILY HISTORY: No family history of GI malignancies. MEDICATIONS: Please see the MAR. They have been reviewed by me. She is on chronic narcotics REVIEW OF SYSTEMS: GENERAL: No weight gain or weight loss. No fever. No chills. HEENT: No head trauma. No headache. No change in hearing or vision. No blurry vision. No throat irritation or epistaxis. NECK: No stiffness. HEME/LYMPH: Positive for iron-deficiency anemia. No easy bruising or bleeding. No swollen lymph nodes. PULMONARY: No cough or hemoptysis. CARDIOVASCULAR: No chest pain. No dyspnea on exertion. No PND. No orthopnea. GASTROINTESTINAL: See HPI. GENITOURINARY: No dysuria. No hematuria. ENDOCRINE: No heat or cold intolerance. No polyuria, polydipsia, or polyphagia. NEUROLOGIC: No seizures or syncope. Positive for back pain. PSYCHIATRIC: No anxiety or depression. RHEUMATOLOGIC AND MUSCULOSKELETAL: No arthralgias or myalgias. Rest of review of systems negative. PHYSICAL EXAMINATION: VITAL SIGNS: Blood pressure is 136/93, pulse of 87, respirations 18, and T-current 98.2, T-max 98.6. GENERAL: The patient is awake, alert, and oriented x3, in no acute distress, lying comfortably in bed. HEENT: Normocephalic and atraumatic. Pupils are equal and reactive to light. Extraocular movements are intact. Anicteric sclerae. Oropharynx is clear. NECK: Supple. No lymphadenopathy. No JVD. No carotid bruits. No thyromegaly. CARDIOVASCULAR: Regular rate and rhythm. No murmurs, gallops, or rubs. PULMONARY: Clear to auscultation bilaterally. ABDOMEN: Soft, mild epigastric tenderness without rebound or guarding. Nondistended. Positive bowel sounds. No hepatosplenomegaly. BACK: No spine or CVA tenderness. EXTREMITIES: No clubbing, cyanosis, or edema. SKIN: No rash or lesions. NEUROLOGICAL: Cranial nerves II through XII intact. No gross focal, motor, or sensory deficits. LABORATORY DATA AND DIAGNOSTIC STUDIES: Labs reveal mild anemia and hypokalemia. CT with few mildly dilated loops of small bowel without transition point. ASSESSMENT: 1. Iron-deficiency anemia likely due to bypass. 2. Chronic abdominal pain, most promine nt in the midepigastrium. 3. Recurrent nausea and vomiting. 4. Chronic pain syndrome and numbness. 5. Chronic diarrhea. RECOMMENDATIONS: 1. Antiemetics as needed. 2. Check iron studies. 3. The patient whas had recent EGD on which was unrevealing. 4. Questran b.i.d. for diarrhea. We wi ll use this medication cautiously as the patient given the use of pain medications chronically is at risk for opioid-induced constipation; therefore, Questran may potentially be constipating for her. We will monitor this carefully. 5. Monitor hematocrit. 6. Diagnosis, management plan, relevant lab and imaging studies were discussed at length with the patient. 7. Further recommendations are to candelario rizo based on the patient's clinical course. Extracted from:Title: Clinical Document Author: Javier Ramsey MD Date: 04/01/17 PATIENT NAME: ANGELA ALLEN ATTENDING PHYSICIAN: SAMANTAH SNYDER DATE OF ADMISSION: 04/01/2017 * * * CC: "can't keep anything down" REASON FOR ADMISSION: HISTORY OF PRESENT ILLNESS: 51 yo woman with PMHx of anemia, SVT, ga stroparesis, chronic neck pain s/p cervical fusion and chronic LBP, MVP, HTN presented to outside ED with epigastric pain and intractable N/V after eating chicken at [employer] earlier in the evening. Pt reports she had a gastric band procedure in 1994 with multiple revisions 2/2 strictures and finally required gastric bypass surgery which was performed in october of this year. labs at outside facility today showed Hb 11.3, WBC 6.7, mild hypokalemia. BP here 177/102. Tm outside facility 99.3. Pt denies sick contacts, diarrhea, hematemesis, hematochezia, melena, dysuria, fevers/chills, syncope, CP, or dyspnea. She has a Left chest port due to being "poor stick". last BM today. PAST MEDICAL HISTORY: as per HPI PAST SURGICAL HISTORY: as per HPI FAMILY HISTORY:mother with HTN ALLERGIES: Allergies (4) Active Reaction Inapsine None documented aspirin None documented Toradol None documented morphine None documented HOME MEDICATIONS: Please see medical reconciliation form. SOCIAL HISTORY: no smoking, EtOH or drug use. REVIEW OF SYSTEMS: 12-point review of systems negative except for that detailed in above HPI PHYSICAL EXAMINATION: Vitals Tmp(F) Pulse BP RR SpO2 FIO2 04/01 00:41 99.4 107 163/113 19 98 --- 24 Hr Tmax: 99.4F (37.44c) at 04/01 00:4 1 Vital Signs are the last 5 in the past 48 hours. I&O Record In Out Bal 03/31 24hr Tot 52 0 52 03/30 24hr Tot 0 0 0 GENERAL: in moderate distress, actively vomiting HEENT: EOMI NECK: supple, no jugular venous distention, no masses, no bruits CARDIOVASCULAR: tachycardic but regular rhythm, s1 and s2 present, no murmurs, rubs or gallops LUNGS: clear to auscultation bilaterally, no wheezes, rales or rhonchi. GASTROINTESTINAL: soft, diffuse mild tenderness without rebound or guarding, no fluid wave, BS present. EXTREMITIES: no clubbing, cyanosis, pulses 2+ bilaterally and symmetric. mild edema which is symmetric, no erythema NEUROLOGICAL: intact, no gross deficits noted SKIN: warm, no erythema, ecchymoses, purpura or petechiae, no jaundice, no diaphoresis LABORATORY DATA: Radiology: CT/ABDOMEN WO IV CONTRAST - PENDING Assessment&Plan: 51 yo woman with above PMHx presents from outside clinic with intractable N/V after eating earlier. 1. N/V, ABDOMINAL PAIN 2. HTN 3. GASTROPARESIS 4. ANEMIA PLAN: 1. Will obtain CT/abdomen wo IV contrast for further imaging. Will ask sugery to evaluate given h/o gastric bypass. Possible etiologies also include toxic food exposure/"food poisoning" although no evidence of colitis at this time. Also possible etiol. is gastroparesis given her history. Will continue IV phenergan, dilaudid and continue IVF resuscitation, check AM lytes. 2. reconcile home meds when available. 3. possible source of current symptoms, will follow clinically and add reglan to current medical regimen. 4. stable per pt. date/time of encounter: 04/01/2017 00:35 04/04/2017 [facility] Extracted from:Title: Clinical Document Author: Vicente Perkins MD Date: 12/29/16 Cardiology Progress Note Vicente Perkins MD [facility] Subjective: Events noted, chart reviewed. She denies chest or abdominal pain at present and is feeling better Telemetry: sinus rhythm, 70-90's Objective: Vitals and Temp: Vitals Tmp(F) Pulse BP RR SpO2 FIO2 12/29 11:26 98.2 104 130/84 17 100 --- 12/29 09:55 ---- 91 ----- -- --- --- 12/29 07:50 98.7 88 173/91 1 7 99 --- 12/29 05:25 ---- 94 ----- -- --- --- 03/31 03:12 98.8 109 150/85 18 --- --- 24 Hr Tmax: 99.8F (37.67c) at 12/28 15:2 7 Vital Signs are the last 5 in the past 48 hours. Medications: cloNIDine 0.3 mg/24hr PATCH 1 patch, TOP, qWeek digoxin 0.5 mg/2 ml INJ AMP 0.125 mg 0.5 mL, IVP, Daily lisinopril 5 mg TAB 5 mg 1 tab, PO, Daily metoprolol succinate 100 mg ERT 100 mg 1 tab, PO, Q12H potassium chloride 20 mEq ERT 40 mEq 2 tab, PO, Daily trazodone 50 mg TAB 50 mg 1 tab, PO, Bedtime Continuous: (2) NS + KCL 20mEq/L 1000ml (Premix) 1,000 mL 1,000 mL, IV, 125 ml/hr sodium chloride 0.9% 1000 ml INJ 1,000 mL 1,000 mL, IV, 100 ml/hr Physical Exam: CV - RRR, normal S1 and S2 Lungs - CTA, no wheezing or rhonchi Abd - soft, nontender, nondistended. Bowel sounds are present Ext - no clubbing, cyanosis or edema Labs, Diagnostic Data and Imaging Studies: (no lab data in past 24 hours) Assessment: HTN urgency Tachycardia h/o gastric band s/p multiple revisions, most recently in Oct at [facility] Ventricular ectopy, unifocal PVCs Gastroparesis Plan: Normal LV systolic function by echo, with mild MVP and trace TR Recheck labs Add Amlodipine as well as prn Clonidine in addition to the scheduled patch GI eval as outpatient re: gastroparesis Ok to discharge from Cardiac standpoint if labs OK 12/30/2016 [facility] Plan of Care No Data Provided for This Section Social History Social History Date Source Social History TypeResponse Alcohol Never Substance Abuse Use: None. Smoking Status Never smoker; Exposure to Tobacco Smoke None; Cigarette Smoking Last 365 Days No; Reg Smoking Cessation Counseling No entered on: 03/25/18 02/18/2018 [facility] Family History No Data Provided for This Section Advance Directives No Data Provided for This Section Functional Status No Data Provided for This Section
--- OUTSIDE RECORDS SUMMARY | 2020-05-21 19:32 | XMS REPORT | Continuity of Care Document ---
Author Author [facility] t Organization [facility] Address [address] [place] [address] Phone Unavailable Care Team Providers Care Composite Bond Worker Name Role Phone Ml HERNANDEZ, Michele Mckeon PCP Trudi MEJIA, Y Audelia Attphys Unavailable Donn Ash Attphys Kishore NAZARIO Attphys Unavailable PereaLida shahang Attphys Macrina Camarena Attphys Thuan Shrestha Attphys Mariano Moeller Attphys Hermilo Sellers Adnan Attphys Jose Welsh Jr Attphys Kishore NAZARIO Admphys Unavailable Perea, Lida Arguetaang Admphys Thuan Shrestha Admphys Mariano Moeller Admphys Hermilo, Sellers Adnan Admphys Payers Payer Name Policy Type Policy Number Effective Date Expiration Date [facility] CAREUNITED HMO POS SELECT CHOICExxxx xxxxxHMO/POS xxxxxxxxx [facility] MEDICAREMEDICARE A BxxxxxxxxxxxMedicare xxxxxxxxxxx [facility] Problems Condition Name Condition Details Condition Category Status Onset Date Resolution Date Last Treatment Date Treating Clinician Comments Source BACK PAIN BACK PAIN Active 06/08/2019 [facility] Diagnosis Active 2019-06-08 00:00:00 2019-08-03 17:07:00 [facility] Abnormal liver enzymes Abnormal liver enzymes Disease Active 2019-02-26 00:00:00 Last Assessment & Plan: The liver enzymes are abnormal in a mixed pattern of injury with hepatocellular and cholestatic enzyme elevations. There are wide fluctuations of the liver enzymes noted over the last few months however the function of the liver remains intact. A work up has rule out chronic hep B/C, preliminary testing otherwise was negative. We will complete the comprehensive work up today. Mixed patterns of injury raise concern for medication vs autoimmune injuries. Repeat of the autoimmune panels planned. Liver biopsy is recommended. Risks and benefits were discussed on the liver biopsy which is offered with sedation. The patient has requested general anesthesia. I also reviewed a case report of ketamine induced abnormal liver enzymes which is similar to her case. Of note, there were also bile duct changes noted on this case report which there is a focal area of bile duct abnormality noted on this patient in the common hepatic duct with enlargement. All reviewed with the patient. We will work to get more accurate information before and 12 hours after the ketamine injections she is receiving to determine if there is a drug reaction to this medication. [facility] Immunity status testing Immunity status testing Disease Active 2019-02-26 00:00:00 Last Assessment & Plan: Serological tests will be completed to determine the presence of immunity to hepatitis A and B. If the patient does not have adequate immunity, we would recommend administration of appropriate vaccination as per CDC guidelines by the primary care provider. [facility] Hepatomegaly Hepatomegaly Disease Active 2019-02-26 00:00:00 Last Assessment & Plan: Referred at this time with abnormal liver enzymes. Hepatomegaly suggests a chronic liver disease. There was no evidence of cirrhosis or advanced liver fibrosis. There is also no evidence of portal hypertension on the imaging. We offer a free fibroscan with her visit today as a noninvasive assessment for fibrosis and fat content. Liver biopsy is recommended for full assessment. [facility] Essential hypertension Essential hypertension Disease Active 2019-02-26 00:00:00 [facility] Chronic back pain Chronic back pain Disease Active 2019-02-26 00:00:00 Last Assessment & Plan: Counseling done on the likelihood that she may be taken off the ketamine for pain control. I have asked her to follow up with her pain management physician for treatment. Maximum acetaminophen dose in 24 hours should not exceed 2000 mg for now while we continue her work up for underlying liver disease. 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 In review of case reports, this also can be seen with ketamine. [facility] SHORTNESS OF BREATH SHOR TNESS OF BREATH Active 03/25/2018 [facility] Diagnosis Active 2018-03-25 00:00:00 2018-03-25 17:05:00 [facility] PALPITATIONS/HYPOKALEMIA/DYSPNEA PALPITATIONS/HYPOKALEMIA/DYSPNEA Active 03/25/2018 [facility] Diagnosis Active 2018-03-25 00:00:00 2018-03-26 13:42:00 [facility] [place] CHEST PAIN CHES T PAIN Active 02/17/2018 [facility] Diagnosis Active 2018-02-17 00:00:00 2018-02-17 17:29:00 [facility] HEART PALPITATIONS HEAR T PALPITATIONS Active 02/17/2018 [facility] Diagnosis Active 2018-02-17 00:00:00 2018-02-18 15:07:00 [facility] SYNCOPE SYNC OPE Active 07/11/2017 [facility] Diagnosis Active 2017-07-11 00:00:00 2017-07-18 22:01:00 [facility] VOMITING VOMI TING Active 05/18/2017 [facility] Diagnosis Active 2017-05-18 00:00:00 2017-05-30 21:46:00 [facility] INTRACTABLE VOMITING INTR ACTABLE VOMITING Active 04/01/2017 [facility] Diagnosis Active 2017-04-01 00:00:00 2017-05-02 16:08:00 [facility] CHEST PAIN VS EPIGASTRIC PAIN, HYPERTENS CHEST PAIN VS EPIGASTRIC PAIN, HYPERTENS Active 12/27/2016 [facility] Diagnosis Ac tive 2016-12-27 23:26:00 2016-12-28 00:24:00 [facility] Wound packing material, device (physical object) Wound packing material, device (physical object) Active 08/24/2010 Problem 07/15/2017 RAKAN Navas,[facility] Problem Active 2010-08-24 00:00:00 2017-07-15 05:24:34 Lyndon Mena IV ASSESS-DIFFICULT IV START/BLOOD DRAWN(Confirmed) IV ASSESS-DIFFICULT IV START/BLOOD DRAWN(Confirmed) Active 10/01/1996 Problem 10/09/2014 RAKAN Navas Problem Active 1996-10-01 00:00:00 2014-10-09 17:21:31 Lyndon Mena Palpitations Palp itations 02/22/2018 [facility] Problem 2018-02-22 02:03:48 [facility] Rajesh Chronic pain (finding) 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) Resolved Problem 06/10/2019 [facility] Problem Resolved 2019-06-10 21:18: 52 [facility] Rajesh Exposure to organism (event) E xposure to organism (event) Resolved Problem 06/10/2019 [facility] Problem Resolved 2019-06-10 21:18:52 [facility] Rajesh Gastroparesis (disorder) Monica roparesis (disorder) Resolved Problem 06/10/2019 [facility] Problem Resolved 2019-06-10 21: 18:52 [facility] Rajesh Hypertensive disorder, systemic arterial (disorder) Hypertensive disorder, systemic arterial (disorder) Resolved Problem 06/10/2019 [facility] Problem Resolved 2019-06-10 21:18:52 [facility] Rajesh Irregular heart beat (finding) Irregular heart beat (finding) Resolved Problem 06/10/2019 [facility] Problem Resolved 2019-06-10 21:18:52 [facility] Rajesh Anemia (disorder) Anem ia (disorder) Active Problem 06/10/2019 [facility]ella [facility] Problem Active 20 19-06-10 21:18:52 [facility] Rajesh Endocarditis (disorder) Endo carditis (disorder) Active Problem 06/10/2019 ELIUBella [facility]well[facility] Problem Active 2019-06-10 21:18:52 [facility] Rajesh Mitral valve prolapse (disorder) Mitral valve prolapse (disorder) Active Problem 06/10/[address] [facility] Problem Active 2019-06-10 21:18:52 [facility] 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) 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) Active Problem 06/10/2019 SOHA [facility] Problem Active 20 19-06-10 21:18:52 [facility] Wound care (procedure) Woun d care (procedure) Active Problem 06/10/2019 SOHA [facility] Problem Active 2019-06-10 21:18:52 [facility] CHEST PAIN, UNSPECIFIED CHES T PAIN, UNSPECIFIED Active [facility] Active 2017-01-04 21:57:00 [facility] EPIGASTRIC PAIN EPIG ASTRIC PAIN Active [facility] Active 2016-12-28 00:24:00 [facility] NAUSEA WITH VOMITING, UNSPECIFIED NAUSEA WITH VOMITING, UNSPECIFIED Active [facility] Active 2016-12-28 00 :24:00 [facility] VOMITING, UNSPECIFIED VOMI TING, UNSPECIFIED Active [facility] Active 2017-04-06 22:23:00 [facility] SYNCOPE AND COLLAPSE SYNC OPE AND COLLAPSE Active [facility] Active 2017-07-18 22:01:00 [facility] PALPITATIONS PALP ITATIONS Active [facility] Active 2018-02-18 15:07:00 [facility] [place] Allergies, Adverse Reactions, Alerts Allergy Name Allergy Type Status Severity Reaction(s) Onset Date Inacti ve Date Treating Clinician Comments Source ketorolac tromethamine DA Active MO 2019-10-16 00:00:00 [facility] droperidol DA Active U 2019-10-16 00:00:00 [facility] aspirin DA Active SV 2019-10-16 00:00:00 [facility] ketorolac DA Active SV 2019-10-16 00:00:00 [facility] Morphine Propensity to adverse reactions Active Hives 2017-08 00:00:00 Rash,itching [facility] Aspirin Propensity to adverse reactions to drug Active 2017-08-12 00:00:00 Adolfo Mandaen Droperidol Propensity to adverse reactions to drug Active Other (See Comments) 2017-08-12 00:00:00 Hypotension Adolfo Hopson Morphine Propensity to adverse reactions to drug Active 2017-08-12 00:00:00 Adolfo Hopson Ketorolac Propensity to adverse reactions to drug Active 2017-08-12 00:00:00 Adolfo quintero ketorolac tromethamine DA Active MO 2016-12-04 00:00:00 [facility] droperidol DA Active U 2016-12-04 00:00:00 [facility] aspirin DA Active SV 2016-12-04 00:00:00 [facility] ketorolac DA Active SV 2016-12-04 00:00:00 [facility] Aspirin Propensity to adverse reactions Active Hive s, Rash 2016-12-04 00:00:00 Rash,itching [facility] Droperidol Propensity to adverse reactions Active Othe r (See Comments) 2016-12-04 00:00:00 Hypotension [facility] Ketorolac Propensity to adverse reactions Active Hives 12-04 00:00:00 Rash,itching [facility] aspirin aspirin Active [facility] Inapsine Inapsine [facility] morphine morphine Active [facility] Toradol Toradol Active [facility] Family History Family Member Diagnosis Comments Start Date Stop Date Source Natural mother Diabetes [facility] Natural mother Heart disease [facility] Natural mother Obesity [facility] Natural sister Cancer [facility] Social History Social Habit Start Date Stop Date Quantity Comments Source History SDOH Alcohol Std Drinks [facility] History SDOH Alcohol Binge [facility] Sex Assigned At Petra chasesharon Mandaen History SDOH Alcohol Frequency 2019-02-26 00:00:00 2019-02-26 00:00:0 0 1 [facility] Social History 2018-02-18 01:44:32 2018-02-18 01:44:32 [facility] Smoking Status Start Date Stop Date Source Never smoker [facility] Medications Ordered Medication Name Filled Medication Name Start Date Stop Da te Current Medication? Ordering Clinician Indication Dosage Frequency Signature (SIG) Comments Components Source cyproheptadine (PERIACTIN) 2 mg/5 mL syrup 2019-03-12 08:24:10 Yes Take by mouth every 8 (eight) hours. [facility] diphenhydrAMINE (BENADRYL) 25 mg capsule 2019-03-12 08:24:10 Yes 25mg Take 25 mg by mouth every 6 (six) hours as needed for Itching. [facility] LORazepam (ATIVAN) 0.5 MG tablet 2019-03-12 08:24:09 Yes .5mg Q.[id number] Take 0.5 mg by mouth 3 (three) times daily. [facility] ergocalciferol (VITAMIN D2) 50,000 unit capsule 2019-02-26 10:33 :52 Yes [id number] Q7D Take 50,000 Units by mouth once a week. [facility] cholecalciferol, vitamin D3, 2,000 unit Cap 2019-02-26 10:33:52 Yes Take by mouth. [facility] spironolactone (ALDACTONE) 25 MG tablet 2019-02-22 00:00:00 Yes 25mg Q.5D Take 25 mg by mouth 2 (two) times daily . [facility] promethazine (PHENERGAN) 25 MG tablet 2019-02-20 00:00:00 Y es TK 1 T PO TID PRN NV [facility] oxyCODONE (ROXICODONE) 15 MG immediate release tablet 2019-02-19 00:00:00 Yes 15mg Take 15 mg by mouth every 6 (six) hours as needed . [facility] tiZANidine (ZANAFLEX) 4 MG tablet 2019-02-19 00:00:00 Yes 4mg Q.25D Take 4 mg by mouth 4 (four) times daily . [facility] LORazepam (ATIVAN) 1 MG tablet 2019-02-10 00:00:00 Yes 1mg Q.[id number] Take 1 mg by mouth 3 (three) times daily . [facility] amLODIPine (NORVASC) 5 MG tablet 2019-02-05 00:00:00 Yes [facility] clonazePAM (KLONOPIN) 1 MG disintegrating tablet 2019-02-03 00:00:00 Yes 1mg Take 1 mg by mouth 6 x/day. [facility] lisinopril (PRINIVIL,ZESTRIL) 20 MG tablet 2019-02-01 00:00:00 Yes 20mg Q.5D Take 20 mg by mouth 2 (two) times daily . [facility] cloNIDine HCl (CATAPRES) 0.1 MG tablet 2019-02-01 00:00:00 Yes .1mg Q.5D Take 0.1 mg by mouth 2 (two) times daily . [facility] metoprolol (TOPROL-XL) 50 MG 24 hr tablet 2019-02-01 00:00:00 Yes 50mg Q.5D Take 50 mg by mouth 2 (two) times daily . [facility] lidocaine (LIDODERM) 5 % patch 2019-02-01 00:00:00 Yes [facility] potassium chloride 20 mEq TbER 2019-01-08 00:00:00 Yes QD daily . [facility] potassium chloride 20 mEq oral tablet, extended release 2018-03-27 02:00:00 No Notes: (Same as : K-Dur 20) "Do Not Crush" For patients unable to swallow tablet, dissolve in one half glass of water. Allow about 2 minutes for the tablets to disintegrate. Stir before giving to prepare slurry and administer. Please exclude Patient s with feeding tube less than 14 Samoan (Dobhoff, J-tube etc) and pediatric and patients. With food and full glass of water Lyndon Rajesh Ativan 2018-03-26 21:00:00 No Notes: (Same as: Ativan) [facility] heparin flush 2018-03-26 16:25:00 No Notes: (Same as: Heparin Lock Flush) [facility] sodium chloride 2018-03-26 16:24:00 No Notes: preservative free. [facility] Morphine 2018-03-26 16:22:00 No Not es: (Same as:MORPhine Sulfate) [facility] Morphine 2018-03-26 16:19:00 No 12 mg, Route: PO, Drug form: SOLN, Q6H, Dosing Weight 62.727, kg, PRN, Start date: 03/26/18 11:19:00 CDT, Duration: 1 day, Stop date: 03/27/18 11:18:00 CDT, Pain Score 8-10 [facility] Oxycodone Hydrochloride 5 MG Oral Tablet 2018-03-26 16:17:00 No Notes: (Same as: Roxicodone) [facility] potassium chloride 20 mEq oral tablet, extended release 2018-03-26 15:14:52 Yes 20 mEq = 1 tab, PO, Q12H, # 60 tab, 0 Refill(s), Pharmacy: [address] pantoprazole 40 MG Enteric Coated Tablet [Protonix] 03-26 15:14:26 Yes 40 mg = 1 tab, P O, Daily, # 30 tab, 0 Refill(s), Pharmacy: [address] ondansetron 4 mg oral tablet 2018-03-26 15:14:00 Yes 4 mg = 1 tab, PO, Q6H, PRN Nausea & Vomiting, # 20 tab, 0 Refill(s), Pharmacy: [address] Ambien 2018-03-26 14:28:00 No Notes: (Same As: Ambien) [facility] Protonix 2018-03-26 14:00:00 No Notes: Tablet should not be chewed or crushed. (Same as: Protonix) [facility] 24 HR Metoprolol Tartrate 200 MG Extended Release Tablet [To prol] 2018-03-26 14:00:00 No Notes: (Sa me as: Toprol XL) May split tab, but do not crush. [facility] Lisinopril 2018-03-26 14:00:00 No Notes: (Same as: Prinivil, Zestril) [facility] Klonopin 2018-03-26 14:00:00 No Notes: ([facility] e As: KlonoPIN) [facility] SENOKOT-S 2018-03-26 14:00:00 No Notes: (Same as Senokot-S) Equiv. to Judie-Colace. [facility] Phenergan 2018-03-26 05:51:00 No Notes: Do not give IV push. (Same as: Phenergan) [facility] Zanaflex 2018-03-26 05:00:00 No Notes: ([facility] e As: Zanaflex) [facility] 168 HR Clonidine 0.0125 MG/HR Transdermal Patch 2018-03-26 05:00 :00 No Notes: Patch delivers 0.3 mg /24 hours; Patch is applied weekly. [id number]. "Remove old patch before application of new patch" [facility] Lovenox 2018-03-26 05:00:00 No Notes: (Same as: Lovenox) [facility] Klonopin 2018-03-26 04:45:00 No Notes: ([facility] e As: KlonoPIN) [facility] Benadryl 2018-03-26 03:28:00 No Notes: ([facility] as: Benadryl) [facility] Morphine 2018-03-26 03:27:00 No Not es: (Same as:MORPhine Sulfate) [facility] Acetaminophen 2018-03-26 02:41:00 No Notes: Do not exceed 4 gm/day. (Same as: Tylenol) [facility] Acetaminophen 325 MG / Hydrocodone Bitartrate 5 MG Oral Tabl et 2018-03-26 02:41:00 No Notes: ([facility] as: Maxwell 325/5) Do not exceed 4gm/day of acetaminophen. [facility] Ondansetron 2018-03-26 02:41:00 No Notes: ( Same as: Zofran) [facility] Diphenhydramine 2018-03-26 01:05:00 No 25 mg, Route: IVP, ONCE, Dosing Weight 62.727, kg, Priority: STAT, Start date: 03/25/18 20:05:00 CDT, Stop date: 03/25/18 20:05:00 CDT [facility] [place] Morphine 2018-03-26 01:05:00 No 2 mg, Route: IVP, ONCE, Dosing Weight 62.727, kg, Priority: STAT, Start date: 03/25/18 20:05:00 CDT, Stop date: 03/25/18 20:05:00 CDT [facility] Hydralazine 2018-03-25 23:46:00 No Notes: (Same as: Apresoline) Push over 5 minutes [facility] Phenergan 2018-03-25 23:45:00 No Notes: Do not give IV push. (Same as: Phenergan) [facility] tizanidine 2018-03-25 23:29:00 No 6 mg, Route: PO, ONCE, Dosing Weight 62.727, kg, Start date: 03/25/18 18:29:00 CDT, Stop date: 03/25/18 18:29:00 CDT [facility] Fentanyl 2018-03-25 23:20:00 No 50 microgram, Route: IV, ONCE, Dosing Weight 62.727, kg, Start date: 03/25/18 18:20:00 CDT, Stop date: 03/25/18 18:20:00 CDT [facility] Fentanyl 2018-03-25 23:09:00 No 50 microgram, Route: IV, ONCE, Dosing Weight 62.727, kg, Start date: 03/25/18 18:09:00 CDT, Stop date: 03/25/18 18:09:00 CDT [facility] Hydralazine 2018-03-25 23:05:00 No 5 mg, Route: IV, ONCE, Dosing Weight 62.727, kg, Start date: 03/25/18 18:05:00 CDT, Stop date: 03/25/18 18:05:00 CDT [facility] Lisinopril 2018-03-25 23:05:00 No 20 mg, Route: PO, Drug form: TAB, ONCE, Dosing Weight 62.727, kg, Start date: 03/25/18 18:05:00 CDT, Stop date: 03/25/18 18:05:00 CDT [facility] Acetaminophen 325 MG / Hydrocodone Bitartrate 10 MG Or al Tablet [Maxwell 10/325] 2018-03-25 23:05:00 No 1 ta b, Route: PO, Dosing Weight 62.727, kg, ONCE, Start date: 03/25/18 18:05:00 CDT, Stop date: 03/25/18 18:05:00 CDT [facility] Fentanyl 2018-03-25 22:29:00 No 50 microgram, Route: IV, ONCE, Dosing Weight 62.727, kg, Start date: 03/25/18 17:29:00 CDT, Stop date: 03/25/18 17:29:00 CDT [facility] Fentanyl 2018-03-25 21:32:00 No 50 microgram, Route: IVP, ONCE, Dosing Weight 62.727, kg, Priority: STAT, Start date: 03/25/18 16:32:00 CDT, Stop date: 03/25/18 16:32:00 CDT [facility] Potassium Chloride 1.33 MEQ/ML Oral Solution 2018-03-25 21:32:00 No 20 mEq, 15 mL, Route: PO, Drug form: LIQ, ONCE, Dosing Weight 62.727, kg, Priority: STAT, Start date: 03/25/18 16:32:00 CDT, Stop date: 03/25/18 16:32:00 CDT [facility] Phenergan 2018-03-25 21:31:00 No 12.5 mg, Route: IVPB, ONCE, Dosing Weight 62.727, kg, Priority: STAT, Start date: 03/25/18 16:31:00 CDT, Stop date: 03/25/18 16:31:00 CDT [facility] Zofran ODT 2018-03-25 21:11:00 No 4 mg, Route: PO, Drug form: TABDIS, ONCE, Dosing Weight 62.727, kg, Priority: STAT, Start date: 03/25/18 16:11:00 CDT, Stop date: 03/25/18 16:11:00 CDT [facility] NS (Bolus) IV 2018-03-25 21:10:00 No 1,000 mL, 1,000 ml/hr, Infuse Over: 1 hr, Route: IV, ONCE, Priority: STAT, Dosing Weight 62.727 kg, Start date: 03/25/18 16:10:00 CDT, Stop date: 03/25/18 16:10:00 CDT [facility] metoprolol extended release 2018-03-25 20:48:00 No 200 mg, Route: PO, Drug form: ERTAB, ONCE, Start date: 03/25/18 15:48:00 CDT, Stop date: 03/25/18 15:48:00 CDT [facility] potassium chloride 20 mEq oral tablet, extended release 2018-02-20 02:00:00 No Notes: (Same as : K-Dur 20) "Do Not Crush" For patients unable to swallow tablet, dissolve in one half glass of water. Allow about 2 minutes for the tablets to disintegrate. Stir before giving to prepare slurry and administer. Please exclude Patient s with feeding tube less than 14 Samoan (Dobhoff, J-tube etc) and pediatric and patients. With food and full glass of water [facility] heparin flush 2018-02-19 15:56:00 No Notes: (Same as: Heparin Lock Flush) [facility] Thiamine 2018-02-19 15:28:00 No Notes: ([facility] e As: Vitamin B1) [facility] potassium chloride 20 mEq oral tablet, extended release 2018-02-19 15:01:00 Yes 20 mEq = 1 tab, PO, Q12H, # 60 tab, 0 Refill(s), Pharmacy: [address] 168 HR Clonidine 0.0125 MG/HR Transdermal Patch 2018-02-19 15:00 :00 No Notes: Patch delivers 0.3 mg /24 hours; Patch is applied weekly. [id number]. "Remove old patch before application of new patch" [facility] pantoprazole 40 MG Enteric Coated Tablet [Protonix] 02-19 14:55:24 Yes 40 mg = 1 tab, P O, Daily, # 30 tab, 0 Refill(s), Pharmacy: [address] Promethazine Hydrochloride 12.5 MG Oral Tablet [Phenergan] 2018-02-19 14:55:00 Yes 12.5 mg, P O, Q6H, PRN Nausea & Vomiting, # 28 tab, 0 Refill(s), Pharmacy: [address] thiamine 100 mg oral tablet 2018-02-19 14:55:00 No 100 mg, PO, Daily, # 100 tab, 0 Refill(s), Pharmacy: [address] Erythromycin Ethylsuccinate 40 MG/ML Oral Suspension 02-19 14:55:00 No 200 mg = 5 mL, P O, BID, # 300 mL, 0 Refill(s), Pharmacy: [address] Phenergan 2018-02-19 14:53:00 No Notes: (Sa me as: Phenergan) [facility] Pepcid 2018-02-19 14:00:00 No Notes: (Same as: Pepcid) [facility] Lisinopril 2018-02-19 14:00:00 No Notes: (Same as: Prinivil, Zestril) [facility] Protonix 2018-02-19 14:00:00 No Notes: Tablet should not be chewed or crushed. (Same as: Protonix) Lyndon Mena metoprolol tartrate 2018-02-19 02:00:00 No Notes: (Same as: Lopressor) [facility]don Mena Erythromycin 2018-02-19 02:00:00 No Notes: (Same as: E.E.S.-400) Lyndon Mena Pepcid 2018-02-19 02:00:00 No Notes: (Same as: Pepcid) Can be dilute in 5-10cc NS IVP: Slow IV push over at least 2 minutes. Lyndon Mena Klonopin 2018-02-19 02:00:00 No Notes: ([facility] e As: KlonoPIN) Lyndon Mena Reglan 2018-02-18 22:00:00 No Notes: (Same as: Reglan) [facility]don Mena Potassium Chloride 2018-02-18 21:00:00 No Notes: MUST be Diluted before use (Same as: KCl) MEDICATION WASTE Product Size: 40 mEq Product Wasted: ___ mEq Lyndon Nelson n Klonopin 2018-02-18 18:00:00 No Notes: ([facility] e As: KlonoPIN) Lyndon Mena Zanaflex 2018-02-18 17:00:00 No Notes: (Godwin e As: Zanaflex) Lyndno Mena D5W 1/2NS + KCL 20mEq/L 1000ml (Premix) 1,000 mL 2018-02-18 15:0 2:00 No Notes: PREMIX IV - Do Not A lter WASTE: F/P - Sink; E - Municipal Trash Bin Lyndon Mena Potassium Chloride 2018-02-18 15:00:00 No Notes: MUST be Diluted before use (Same as: KCl) MEDICATION WASTE Product Size: 40 mEq Product Wasted: ___ mEq Lyndon Nelson n Benadryl 2018-02-18 14:52:00 No Notes: (Godwin e as: Benadryl) Lyndon Mena Phenergan 2018-02-18 14:52:00 No Notes: Do not give IV push. (Same as: Phenergan) Lyndon Mena zolpidem 2018-02-18 14:37:00 No Notes: (Godwin e As: Ambien) Lyndon Mena Reglan 2018-02-18 14:30:00 No Notes: (Same as: Reglan) Lyndon Mena Benadryl 2018-02-18 14:30:00 No 25 mg, 1 tab, Route: PO, Drug form: TAB, Q6H, Dosing Weight 67.273, kg, PRN as needed for itching, Start date: 02/18/18 9:30:00 CDT, Duration: 30 day, Stop date: 03/20/18 9:29:00 CDT [facility] Morphine 2018-02-18 14:30:00 No 2 mg, 1 mL, Route: IV, Drug form: SOLN, Q4H, Dosing Weight 67.273, kg, PRN Pain Score 6-10, Start date: 02/18/18 9:30:00 CDT, Stop date: 03/20/18 9:29:00 CDT [facility] Ambien 2018-02-18 14:15:00 No 10 mg, Route: PO, Drug form: TAB, Bedtime, Dosing Weight 67.273, kg, PRN Sleep, Start date: 02/18/18 9:15:00 CDT, Duration: 30 day, Stop date: 03/20/18 9:14:00 CDT [facility] Saline Flush 0.9% 2018-02-18 14:00:00 No Notes: (Same as: BD Posiflush) [facility] K-Dur 20 2018-02-18 07:30:00 No Notes: (Same as: K-Dur 20) "Do Not Crush" For patients unable to swallow tablet, dissolve in one half glass of water. Allow about 2 minutes for the tablets to disintegrate. Stir before giving to prepare slurry and administer. Please exclude Patient s with feeding tube less than 14 Samoan (Dobhoff, J-tube etc) and pediatric and patients. With food and full glass of water [facility] Potassium Chloride 2018-02-18 07:16:00 No 40 mEq, Route: IV, ONCE, Dosing Weight 67.273, kg, Start date: 02/18/18 2:16:00 CDT, Stop date: 02/18/18 2:16:00 CDT [facility] Benadryl 2018-02-18 05:42:00 No Notes: (Godwin e as: Adriana) [facility] Phenergan 2018-02-18 05:42:00 No Notes: Do not give IV push. (Same as: Phenergan) [facility] morphine Sulfate 2018-02-18 05:32:00 No 2 mg, 1 mL, Route: IVP, Drug form: SOLN, ONCE, Dosing Weight 67.273, kg, Start date: 02/18/18 0:32:00 CDT, Stop date: 02/18/18 0:32:00 CDT [facility] Morphine 2018-02-18 05:18:00 No Notes: Preservative free. (Same as: Morphine Sulfate-PF) [facility] NS (Bolus) IV 2018-02-18 04:31:00 No 500 mL, 500 ml/hr, Infuse Over: 1 hr, Route: IV, 500, Drug form: INJ, ONCE, Priority: STAT, Dosing Weight 67.273 kg, Start date: 02/17/18 23:31:00 CDT, Stop date: 02/17/18 23:31:00 CDT [facility] Magnesium Oxide 2018-02-18 04:28:00 No Notes: (Same as: Mag-Ox 400) Magnesium oxide [id number] elemental magnesium Dose=____mg magnesium oxide (___mg elemental magnesium) [facility] Magnesium Sulfate 2018-02-18 04:28:00 No Notes: WASTE: F/P - Sink; E - Municipal Trash [facility] Calcium Gluconate 2018-02-18 04:28:00 No Notes: WASTE: F[facility]P - Sink; [facility] 2018-02-18 04:28:00 No Notes: (Same as: K Phosphate.) 1 mMol phoshate has 1.47 mEq potassium Infuse over 4 hours [facility] sodium phosphate 2018-02-18 04:28:00 No 15 mmol, 5 mL, Route: IVPB, PRN, Dosing Weight 67.273, kg, PRN Abnormal Lab Result, For NON-ICU Patients Only., Start date: 02/17/18 23:28:00 CDT, Duration: 30 day, Stop date: 03/19/18 23:27:00 CDT [facility] potassium phosphate-sodium phosphate 250 mg-280 mg-160 mg oral powder for reconstitution 2018-02-18 04:28:00 No Notes: (Same as: Phos-NaK) Each 1.5 gm pkt has 250mg phosphorous. Mix w/2.5oz water and stir. Lyndon Mena Potassium Chloride 2018-02-18 04:28:00 No Notes: (Same as: Potassium Chloride) Lyndon Mena Saline Flush 0.9% 2018-02-18 04:26:00 No Notes: (Same as: BD Posiflush) Lyndon Mena Sodium Chloride 0.9% IV 1,000 mL 2018-02-18 04:26:00 No 1,000 mL, Rate: 100 ml/hr, Infuse over: 10 hr, Route: IV, Dosing Weight 67.273 kg, Total Volume: 1,000, Start date: 02/17/18 23:26:00 CDT, Duration: 30 day, Stop date: 03/19/18 23:25:00 CDT, 1.81, m2 Lyndon Mena Nitroglycerin 2018-02-18 04:26:00 No Notes: (Same as:Nitroquick, Nitrostat) "Do Not Crush" Sublingual tablet Lyndon Mena Ondansetron 2018-02-18 04:26:00 No Notes: ( Same as: Zofran) Lyndon Mena metoprolol tartrate 2018-02-18 04:26:00 No Notes: (Same as: Lopressor) [place] Zolpidem tartrate 10 MG Oral Tablet [Ambien] 2018-02-18 02:00:00 Yes 10 mg = 1 tab, PO, Bedtime, PRN for sleep, 0 Refill(s) [facility] [place] Clonazepam 0.5 MG Oral Tablet [Klonopin] 2018-02-18 01:51:00 Yes 1 mg = 2 tab, PO, Bedtime, # 30 tab, 0 Refill(s) [facility] [place] oxyCODONE 15 mg oral tablet 2018-02-18 01:51:00 Yes 15 mg = 1 tab, PO, Q6H, PRN Pain, 0 Refill(s) [facility] [place] Benadryl 2018-02-17 23:53:00 No 25 mg, Route: IVP, ONCE, Dosing Weight 63.636, kg, Priority: STAT, Start date: 02/17/18 18:53:00 CDT, Stop date: 02/17/18 18:53:00 CDT [facility] [place] Morphine 2018-02-17 23:52:00 No 4 mg, Route: IVP, ONCE, Dosing Weight 63.636, kg, Priority: STAT, Start date: 02/17/18 18:52:00 CDT, Stop date: 02/17/18 18:52:00 CDT [facility] Phenergan 2018-02-17 23:52:00 No 25 mg, Route: IM, ONCE, Dosing Weight 63.636, kg, Priority: STAT, Start date: 02/17/18 18:52:00 CDT, Stop date: 02/17/18 18:52:00 CDT [facility] Potassium Chloride 1.33 MEQ/ML Oral Solution 2018-02-17 22:26:00 No 40 mEq, 15 mL, Route: PO, Drug form: LIQ, ONCE, Dosing Weight 63.636, kg, Priority: STAT, Start date: 02/17/18 17:26:00 CDT, Stop date: 02/17/18 17:26:00 CDT [facility] Morphine 2018-02-17 22:05:00 No 4 mg, Route: IVP, ONCE, Dosing Weight 63.636, kg, Priority: STAT, Start date: 02/17/18 17:05:00 CDT, Stop date: 02/17/18 17:05:00 CDT [facility] Benadryl 2018-02-17 22:04:00 No 25 mg, Route: IVP, ONCE, Dosing Weight 63.636, kg, Priority: STAT, Start date: 02/17/18 17:04:00 CDT, Stop date: 02/17/18 17:04:00 CDT [facility] Fentanyl 2018-02-17 22:01:00 No Notes: (Same as: Sublimaze) Preservative free. [facility] Promethazine 2018-02-17 22:01:00 No 12.5 mg, Route: IM, ONCE, Dosing Weight 63.636, kg, Priority: STAT, Start date: 02/17/18 17:01:00 CDT, Stop date: 02/17/18 17:01:[address] [facility] Acetaminophen 325 MG / Hydrocodone Bitartrate 10 MG Or al Tablet [Maxwell 10/325] 2018-02-17 22:00:00 No 1 ta b, Route: PO, Drug Form: TAB, Dosing Weight 63.636, kg, ONCE, STAT, Start date: 02/17/18 17:00:00 CDT, Stop date: 02/17/18 17:00:00 CDT [facility] Metoclopramide 2018-02-17 22:00:00 No 10 mg, Route: IVP, Drug form: INJ, ONCE, Dosing Weight 63.636, kg, Priority: STAT, Start date: 02/17/18 17:00:00 CDT, Stop date: 02/17/18 17:00:00 CDT [facility] Sodium Chloride 0.9% (Bolus) IV 2018-02-17 21:15:00 No 1,000 mL, 1000 ml/hr, Infuse Over: 1 hr, Route: IV, 1,000, Drug form: INJ, ONCE, Priority: STAT, Dosing Weight 63.636 kg, Start date: 02/17/18 16:15:00 CDT, Stop date: 02/17/18 16:15:00 CDT [facility] Saline Flush 0.9% 2018-02-17 21:15:00 No Notes: (Same as: BD Posiflush) [facility] promethazine (PHENERGAN) 25 MG tablet 2017-08-07 00:00:00 Yes Adolfo Hopson lisinopril (PRINIVIL,ZESTRIL) 5 mg tablet 2017-08-02 00:00:00 Yes Adolfo Hopson metoprolol succinate XL (TOPROL-XL) 100 mg 24 hr tablet 2017-08-02 00:00:00 Yes Adolfo quintero oxyCODone-acetaminophen (PERCOCET) 10-325 mg per tablet 2017-08-02 00:00:00 Yes Adolfo quintero LORAZepam (ATIVAN) 1 MG tablet 2017-07-25 00:00:00 Yes Adolfo Hopson clonIDINE (CATAPRES-TTS) 0.3 mg/24 hr 2017-07-24 00:00:00 Yes Adolfo Hopson mirtazapine (REMERON) 30 MG tablet 2017-07-24 00:00:00 Yes Adolfo Hopson zolpidem (AMBIEN) 5 MG tablet 2017-07-24 00:00:00 Yes Adolfo Hopson clonAZEPAM (KlonoPIN) 0.125 MG disintegrating tablet 2 017-10-23 00:00:00 Yes Adolfo quintero TiZANidine (ZANAFLEX) 6 MG capsule 2017-07-23 00:00:00 Yes Adolfo Hopson Protonix 2017-07-13 14:00:00 No Notes: Tablet should not be chewed or crushed. (Same as: Protonix) Lyndon Mena Trazodone Hydrochloride 50 MG Oral Tablet 2017-07-13 02:00:00 No Notes: (Same As: Desyrel) Lyndon Frey nn heparin flush 2017-07-12 22:01:00 No Notes: (Same as: Heparin Lock Flush) Lyndon Mena sodium chloride 2017-07-12 22:01:00 No Notes: preservative free. Lyndon Mena sodium chloride 2017-07-12 22:00:00 No Notes: preservative free. Lyndon Mena Metoclopramide 5 MG Oral Tablet [Reglan] 2017-07-12 20:09:00 Yes 5 mg = 1 tab, PO, Before Meals & Bedtime, X 14 day, # 56 tab, 0 Refill(s), Pharmacy: [place] [id number] Lyndon Mena Zanaflex 2017-07-12 18:00:00 No Notes: (Godwin e As: Zanaflex) Lyndon Mena Potassium Chloride 2017-07-12 17:19:00 No Notes: (Same as: KCL) Infuse no faster than 10 mEq/hr if given peripherally. Lyndon Mena Metoclopramide 5 MG Oral Tablet [Reglan] 2017-07-12 16:30:00 No Notes: (Same as: Reglan) Take 30 min before meals Lyndon Mena metoprolol extended release 2017-07-12 16:00:00 No Notes: (Same as: Toprol XL) Do Not Crush Lyndon Mena Lisinopril 2017-07-12 16:00:00 No Notes: (Same as: Prinivil, Zestril) Lyndon Mena Tylenol 2017-07-12 14:31:00 No Notes: Do not exceed 4 gm/day. (Same as: Tylenol) Lyndon Mena Roxicodone 2017-07-12 14:31:00 No Notes: (S eric as: Roxicodone) Lyndon Mena Oxycontin 2017-07-12 14:25:00 No Notes: Do not crush or chew. (Same as: OxyContin) [facility] Acetaminophen 325 MG / Oxycodone Hydroch loride 10 MG Oral Tablet [Percocet 10/325] 2017-07-12 14:25:00 No 1 tab, Route: PO, Drug Form: TAB, Dosing Weight 65, kg, Q8H, PRN Pain Score 6-10, Start date: 07/12/17 9:25:00 CDT, Duration: 30 day, Stop date: 08/11/17 9:24:00 [facility] [facility] Ativan 2017-07-12 14:25:00 No Notes: (Same as: Ativan) [facility] Hydromorphone 2017-07-12 14:15:00 No 1 mg, 1 mL, Route: IVP, Drug form: INJ, ONCE, Dosing Weight 65, kg, Priority: STAT, Start date: 07/12/17 9:15:00 CDT, Stop date: 07/12/17 9:15:00 CDT [facility] influenza virus vaccine, inactivated 2017-07-12 14:00:00 No Notes: (Same as: Fluzone Quadrivalent, Fluarix Quadrivalent) For 3 years of age and older (0.5 mL IM) Shake well before use [facility] Dilaudid 2017-07-12 05:43:00 No 0.5 mg, 0.5 mL, Route: IVP, Drug form: INJ, Q3H, Dosing Weight 65, kg, PRN Pain Score 7-10, Start date: 07/12/17 0:43:00 CDT, Duration: 30 day, Stop date: 08/11/17 0:42:00 [facility] Calcium Gluconate 2017-07-12 05:42:00 No Notes: WASTE: F/P - Sink; E - Municipal Trash Bin [facility] sodium phosphate 2017-07-12 05:42:00 No 30 mmol, 10 mL, Route: IVPB, PRN, Dosing Weight 65, kg, PRN Abnormal Lab Result, For NON-ICU Patients Only., Start date: 07/12/17 0:42:00 CDT, Duration: 30 day, Stop date: 08/10/17 23:41:00 [facility] Magnesium Oxide 2017-07-12 05:42:00 No Notes: (Same as: Mag-Ox 400) Magnesium oxide [id number] elemental magnesium Dose=____mg magnesium oxide (___mg elemental magnesium) [facility] Magnesium Sulfate 2017-07-12 05:42:00 No Notes: WASTE: F/P - Sink; E - Municipal Trash Bin [facility] Potassium Chloride 2017-07-12 05:42:00 No Notes: (Same as: Potassium Chloride) [facility] potassium phosphate 2017-07-12 05:42:00 No Notes: (Same as: K Phosphate.) 1 mMol phoshate has 1.47 mEq potassium Infuse over 4 hours [facility] potassium phosphate-sodium phosphate 250 mg-280 mg-160 mg oral powder for reconstitution 2017-07-12 05:42:00 No Notes: (Same as: Phos-NaK) Each 1.5 gm pkt has 250mg phosphorous. Mix w/2.5oz water and stir. [facility] Saline Flush 0.9% 2017-07-12 05:36:00 No Notes: (Same as: BD Posiflush) [facility] sodium chloride 0.9% 1000 ml INJ 1,000 mL 2017-07-12 05:36:00 No 1,000 mL, Rate: 150 ml/hr, Infuse over: 6.7 hr, Route: IV, Dosing Weight 65 kg, Total Volume: 1,000, Start date: 07/12/17 0:36:00 CDT, Stop date: 07/13/17 2:30:00 CDT [facility] Acetaminophen 325 MG / Hydrocodone Bitartrate 5 MG Oral Tabl et 2017-07-12 05:36:00 No Notes: (Sa me as: Maxwell 325/5) Do not exceed 4gm/day of acetaminophen. [facility] Ondansetron 2017-07-12 05:36:00 No Notes: (Same as: Zofran) MEDICATION WASTE Product Size: 4 mg Product Wasted: ___ mg [facility] Remeron 2017-05-20 02:00:00 No Notes: (Same as:Remeron) [facility] metoprolol tartrate 2017-05-20 02:00:00 No Notes: (Same as: Toprol XL) May split tab, but do not crush. [facility] heparin 2017-05-19 22:38:00 No Note s: (Same as: Heparin Lock Flush) [facility] Protonix 2017-05-19 21:30:00 No 40 mg, 1 tab, Route: PO, Drug form: ECTAB, Before Dinner, Dosing Weight 61.364, kg, Start date: 05/19/17 16:30:00 CDT, Duration: 30 day, Stop date: 06/17/17 16:30:00 CDT [facility] Zanaflex 2017-05-19 20:00:00 No Notes: (Godwin e As: Zanaflex) [facility] Spironolactone 2017-05-19 19:00:00 No Notes: (Same As: Aldactone) [facility] Lisinopril 2017-05-19 19:00:00 No Notes: (Same as: Prinivil, Zestril) [facility] Norvasc 2017-05-19 19:00:00 No Notes: (Same as: Norvasc) [facility] 168 HR Clonidine 0.0125 MG/HR Transdermal Patch 2017-05-19 18:39 :00 No 1 patch, Route: TOP, Drug Fo rm: ERFILM, Dosing Weight 61.364, kg, qWeek, Start date: 05/19/17 13:39:00 CDT, Duration: 30 day, Stop date: 06/16/17 9:00:00 CDT [facility] Ativan 2017-05-19 17:51:00 No Notes: (Same as: Ativan) [facility] Potassium Chloride 2017-05-19 14:00:00 No Notes: Infuse at a rate of 10 mEq/hr. (Same as: KCL) [facility] nn potassium chloride 20 mEq oral tablet, extended release 2017-05-19 13:42:00 No Notes: (Same as : K-Dur 20) "Do Not Crush" With food and full glass of water [facility] Potassium Chloride 2017-05-19 09:54:00 No Notes: (Same as: K-Dur 20) "Do Not Crush" With food and full glass of water [facility] potassium chloride (K-DUR) 20 MEQ CR tablet 2017-05-19 00:00:00 Yes Adolfo Mendiola 2017-05-18 23:41:00 No Notes: Do not give IV push. (Same as: Phenergan) Lyndon Mena Lorazepam 1 MG Oral Tablet [Ativan] 2017-05-18 22:14:00 Yes 1 mg = 1 tab, PO, TID, PRN as needed for anxiety, 0 Refill(s) Lyndon Mena Spironolactone 2017-05-18 22:14:00 Yes 12.5 mg, PO, Daily, # 60 tab, 0 Refill(s) Lyndon Mena Acetaminophen 325 MG / Oxycodone Hydroch loride 10 MG Oral Tablet [Percocet 10/325] 2017-05-18 22:14:00 Yes 1 tab, PO, Q8H, PRN Pain Score 6-10, 0 Refill(s) Lyndon Mena Amlodipine 10 MG Oral Tablet [Norvasc] 2017-05-18 22:14:00 Yes 10 mg = 1 tab, PO, Daily, 0 Refill(s) Laurie Mena Mirtazapine 30 MG Oral Tablet [Remeron] 2017-05-18 22:14:00 Yes 30 mg = 1 tab, PO, Bedtime, 0 Refill(s) Reed Mena Hydrochlorothiazide 2017-05-18 22:14:00 Yes See Instructions, 12.5 mg PO twice week, 0 Refill(s) Lyndon Bellamy julio cesarkimberlee Oxycontin 2017-05-18 22:14:00 Yes 20 mg, PO, Q12H, PRN Pain Score 6- 10, 0 Refill(s) Lyndon Mena sodium chloride 0.9% 1000 ml INJ 1,000 mL 2017-05-18 21:34:00 No 1,000 mL, Rate: 125 ml/hr, Infuse over: 8 hr, Route: IV, Dosing Weight 61.364 kg, Total Volume: 1,000, Start date: 05/18/17 16:34:00 CDT, Duration: 30 day, Stop date: 06/17/17 16:33:00 CDT Laurie Mena Ondansetron 2017-05-18 21:34:00 No Notes: (Same as: Zofran) MEDICATION WASTE Product Size: 4 mg Product Wasted: ___ mg Lyndon Mena Acetaminophen 325 MG / Hydrocodone Bitartrate 5 MG Oral Tabl et 2017-05-18 21:34:00 No Notes: (Sa me as: Maxwell 325/5) Do not exceed 4gm/day of acetaminophen. [facility] Acetaminophen 2017-05-18 21:34:00 No Notes: Max acetaminophen = 4000 mg/day (4 gm/day). (Same as: Tylenol) [facility] Dilaudid 2017-05-18 21:34:00 No 1 mg, 1 mL, Route: IVP, Drug form: INJ, Q4H, Dosing Weight 61.364, kg, PRN Pain Score 7-10, Start date: 05/18/17 16:34:00 CDT, Duration: 30 day, Stop date: 06/17/17 16:33:00 CDT [facility] sodium chloride 2017-04-04 17:09:00 No Notes: preservative free. [facility] heparin flush 2017-04-04 17:09:00 No Notes: (Same as: Heparin Lock Flush) [facility] potassium chloride 2017-04-03 18:48:00 No Notes: Infuse at a rate of 10 mEq/hr. (Same as: KCL) [facility] potassium chloride 2017-04-03 18:46:00 No Notes: (Same as: K-Dur 20) "Do Not Crush" With food and full glass of water [facility] potassium chloride 2017-04-02 17:00:00 No Notes: Infuse at a rate of 10 mEq/hr. (Same as: KCL) [facility] potassium chloride 2017-04-02 16:03:00 No 20 mEq, Route: IV, ONCE, Dosing Weight 61.364, kg, Start date: 04/02/17 11:03:00 CDT, Stop date: 04/02/17 11:03:00 CDT [facility] potassium chloride 2017-04-02 16:01:00 No Notes: (Same as: K-Dur 20) "Do Not Crush" With food and full glass of water [facility] Trazodone Hydrochloride 50 MG Oral Tablet 2017-04-02 02:00:00 No Notes: (Same As: Desyrel) [facility] Shanet nn Dilaudid 2017-04-01 21:18:00 No 1 mg, 1 mL, Route: IVP, Drug form: INJ, Q3H, Dosing Weight 61.364, kg, PRN Pain Score 7-10, Start date: 04/01/17 16:18:00 CDT, Duration: 30 day, Stop date: 05/01/17 16:17:00 CDT [facility] Rajesh sodium chloride 0.9% 1000 ml INJ 1,000 mL 2017-04-01 19:31:00 No 1,000 mL, Rate: 100 ml/hr, Infuse over: 10 hr, Route: IV, Dosing Weight 61.364 kg, Total Volume: 1,000, Start date: 04/01/17 14:31:00 CDT, Duration: 30 day, Stop date: 05/01/17 14:30:00 CDT Laurie Mena Sodium Chloride 0.154 MEQ/ML Injectable Solution 2017-04-01 19:0 3:00 No 984.8 mL, Rate: 100 ml/hr, I nfuse over: 9.8 hr, Route: IV, Dosing Weight 61.364 kg, Total Volume: 984.8, Start date: 04/01/17 14:03:00 CDT, Duration: 1 doses or times, Stop date: 04/01/17 23:50:00 CDT [facility] Dilaudid 2017-04-01 18:55:00 No 1 mg, 1 mL, Route: IVP, Drug form: INJ, Q2H, Dosing Weight 61.364, kg, PRN Pain Score 7-10, Start date: 04/01/17 13:55:00 CDT, Duration: 30 day, Stop date: 05/01/17 13:54:00 CDT [facility] Sodium Chloride 0.154 MEQ/ML Injectable Solution 2017-04-01 18:4 2:00 No 984.8 mL, Rate: 100 ml/hr, I nfuse over: 10 hr, Route: IV, Dosing Weight 61.364 kg, Total Volume: 1,000, Priority: NOW, Start date: 04/01/17 13:42:00 CDT, Duration: 3 doses or times, Stop date: 04/02/17 19:41:00 CDT [facility] Zanaflex 2017-04-01 14:00:00 No Notes: (Godwin e As: Zanaflex) [facility] Protonix 2017-04-01 14:00:00 No Notes: Tablet should not be chewed or crushed. (Same as: Protonix) Lyndon Mena Phenergan 2017-04-01 14:00:00 No Notes: (Sa me as: Phenergan) Lyndon Mena Lisinopril 2017-04-01 14:00:00 No Notes: (Same as: Prinivil, Zestril) Lyndon Mena metoprolol tartrate 2017-04-01 14:00:00 No Notes: (Same as: Toprol XL) May split tab, but do not crush. [facility] digoxin 125 mcg (0.125 mg) oral tablet 2017-04-01 14:00:00 No Notes: Take on an Empty Stomach (Same as: Lanoxin) [facility] Raj[facility] Amlodipine 2017-04-01 14:00:00 No Notes: (S eric as: Norvasc) [facility] Clonidine Hydrochloride 0.1 MG Oral Tablet 2017-04-01 11:55:00 No Notes: (Same As: Catapres) [facility] Keyanna mohan Acetaminophen 300 MG / Codeine Phosphate 60 MG Oral Tablet [Tylenol with Codeine #4] 2017-04-01 11:55:00 No Notes: Do not exceed 4gm/day of acetaminophen. (Same as: Tylenol with Codeine # 4) [facility] Rajesh Hydralazine 2017-04-01 11:00:00 No Notes: (Same as: Apresoline) Push over 5 minutes Lyndon Mena NS + KCL 20mEq/L 1000ml (Premix) 1,000 mL 2017-04-01 10:41:00 No Notes: PREMIX IV - Do Not Alter WASTE: F/P - Sink; E - Municipal Trash Bin Lyndon Mena Reglan 2017-04-01 08:26:00 No Notes: (Same as: Reglan) Take 30 min before meals [facility] Raj[facility] Phenergan 2017-04-01 07:24:00 No Notes: Do not give IV push. (Same as: Phenergan) Lyndon Mena Dilaudid 2017-04-01 07:24:00 No 1 mg, 1 mL, Route: IVP, Drug form: INJ, Q3H, Dosing Weight 61.364, kg, PRN Pain Score 7-10, Start date: 04/01/17 2:24:00 CDT, Duration: 30 day, Stop date: 05/01/17 2:23:00 CDT Lyndon Mena Ondansetron 2017-04-01 07:22:00 No Notes: (Same as: Zofran) MEDICATION WASTE Product Size: 4 mg Product Wasted: ___ mg Lyndon Mena Lactated Ringers 1,000 mL 2017-04-01 07:22:00 No 1,000 mL, Rate: 125 ml/hr, Infuse over: 8 hr, Route: IV, Dosing Weight 61.364 kg, Total Volume: 1,000, Start date: 04/01/17 2:22:00 CDT, Duration: 30 day, Stop date: 05/01/17 2:21:00 CDT Lyndon Mena Saline Flush 0.9% 2017-04-01 07:22:00 No Notes: (Same as: BD Posiflush) Lyndon Mena Hydromorphone 2017-04-01 06:43:00 No 2 mg, 2 mL, Route: IV, Drug form: INJ, ONCE, Dosing Weight 61.364, kg, Start date: 04/01/17 1:43:00 CDT, Stop date: 04/01/17 1:43:00 CDT Lyndon Mena Phenergan 2017-04-01 06:43:00 No Notes: Do not give IV push. (Same as: Phenergan) Lyndon [place] heparin, porcine 2016-12-29 22:00:00 No Notes: (Same as: Heparin Lock Flush) Lyndon Mena pantoprazole 40 MG Enteric Coated Tablet [Protonix] 12-29 20:55:00 Yes 40 mg = 1 tab, PO, Daily, # 30 tab, 0 Re fill(s) Lyndon Mena digoxin 125 mcg (0.125 mg) oral tablet 2016-12-29 20:34:00 Yes 0.125 mg, PO, Daily, # 30 tab, 0 Refill(s) De ambrosio Mena Clonidine Hydrochloride 0.1 MG Oral Tablet 2016-12-29 20:19:00 Yes 0.1 mg = 1 tab, PO, PRN, PRN Hypertension, # 30 tab, 0 Refill(s) Lyndon Mena amLODIPine 5 mg oral tablet 2016-12-29 20:19:00 Yes 5 mg = 1 tab, PO, Daily, # 30 tab, 0 Refill(s) Laurie Mena Zofran 2016-12-29 16:20:00 No 8 mg, Route: IV, Q8H, Dosing Weight 68.182, kg, PRN Nausea, Start date: 12/29/16 11:20:00 CDT, Duration: 30 day, Stop date: 01/28/17 11:19:00 CDT Laruie Mena Zofran 2016-12-29 16:19:00 No 8 mg, Route: PO, Q8H, Dosing Weight 68.182, kg, PRN Nausea, Start date: 12/29/16 11:19:00 CDT, Duration: 30 day, Stop date: 01/28/17 11:18:00 CDT Laurie Mena Digoxin 2016-12-29 14:00:00 No Notes: (Same as: Lanoxin) Lyndon Mena sodium chloride 0.9% 1000 ml INJ 1,000 mL 2016-12-29 03:00:00 No 1,000 mL, Rate: 100 ml/hr, Infuse over: 10 hr, Route: IV, Dosing Weight 68.182 kg, Total Volume: 1,000, Start date: 12/28/16 22:00:00 CDT, Duration: 30 day, Stop date: 01/27/17 21:59:00 CDT Laurie Mena Trazodone Hydrochloride 50 MG Oral Tablet 2016-12-29 02:00:00 No Notes: (Same As: Renny) Lyndon Frey nn Digoxin 2016-12-28 23:00:00 No Notes: (Same as: Lanoxin) Lyndon Mena NS + KCL 20mEq/L 1000ml (Premix) 250 mL 2016-12-28 18:56:00 No Notes: PREMIX IV - Do Not Alter WASTE: F/P - Sink; E - [facility] [place] potassium chloride 2016-12-28 18:08:00 No Notes: (Same as: K-Dur 20) "Do Not Crush" With food and full glass of water Lyndon Mena NS + KCL 20mEq/L 1000ml (Premix) 1,000 mL 2016-12-28 18:08:00 No Notes: PREMIX IV - Do Not Alter WASTE: F/P - Sink; E - [facility] Rajesh Sodium Chloride 0.9% IV 1000 mL 2016-12-28 17:52:00 No 1,000 mL, Rate: 100 ml/hr, Infuse over: 10 hr, Route: IV, Dosing Weight 68.182 kg, Total Volume: 1,000, Start date: 12/28/16 12:52:00 CDT, Duration: 30 day, Stop date: 01/27/17 12:51:00 [facility] 2016-12-28 14:00:00 No Notes: (Godwin e As: Zanaflex) [facility] tartrate 2016-12-28 14:00:00 No Notes: (Same as: Toprol XL) May split tab, but do not crush. [facility] Lisinopril 2016-12-28 14:00:00 No Notes: (Same as: Prinivil, Zestril) [facility] [place] influenza virus vaccine, inactivated 2016-12-28 14:00:00 No Notes: (Same as: Fluzone Quadrivalent, Fluarix Quadrivalent) For 3 years of age and older (0.5 mL IM) Shake well before use [facility] Hyoscyamine 2016-12-28 13:00:00 No Notes: (Same as: Levsin) Take 30 min before meal [facility] 168 HR Clonidine 0.0125 MG/HR Transdermal Patch 2016-12-28 11:00 :00 No Notes: Patch delivers 0.3 mg /24 hours; Patch is applied weekly. [id number]. "Remove old patch before application of new patch" [facility] Clonidine Hydrochloride 0.1 MG Oral Tablet 2016-12-28 10:19:00 No Notes: (Same As: Catapres) [facility] kimberlee Acetaminophen 300 MG / Codeine Phosphate 60 MG Oral Tablet [Tylenol with Codeine #4] 2016-12-28 10:19:00 No Notes: Do not exceed 4gm/day of acetaminophen. (Same as: Tylenol with Codeine # 4) [facility] Labetalol 2016-12-28 10:18:00 No Notes: (Same as: Normodyne, Trandate) Push over 2 minutes Give bolus over 2-3 minutes. [facility] Zofran 2016-12-28 08:26:00 No Notes: (Same as: Zofran) MEDICATION WASTE Product Size: 4 mg Product Wasted: ___ mg [facility] Hydromorphone 2016-12-28 08:26:00 No 2 mg, 2 mL, Route: IVP, Drug form: INJ, Q4H, Dosing Weight 68.182, kg, PRN Pain Score 7-10, Start date: 12/28/16 3:26:00 CDT, Duration: 30 day, Stop date: 01/27/17 3:25:00 CDT [facility] Acetaminophen 325 MG / Hydrocodone Bitartrate 5 MG Oral Tabl et 2016-12-28 08:05:00 No Notes: (Sa me as: Maxwell 325/5) Do not exceed 4gm/day of acetaminophen. [facility] Zonieves 2016-12-28 07:47:00 No Notes: (Same as: Otilio) MEDICATION WASTE Product Size: 4 mg Product Wasted: ___ mg [facility] Dilaudid 2016-12-28 06:25:00 No 1 mg, 1 mL, Route: IV, Drug form: INJ, Q4H, Dosing Weight 68.182, kg, PRN Pain Score 6-10, Start date: 12/28/16 1:25:00 CDT, Duration: 30 day, Stop date: 01/27/17 1:24:00 CDT [facility] Dilaudid 2016-12-28 06:24:00 No 0.5 mg, 0.5 mL, Route: IV, Drug form: INJ, Q4H, Dosing Weight 68.182, kg, PRN Pain Score 6-10, Start date: 12/28/16 1:24:00 CDT, Duration: 30 day, Stop date: 01/27/17 1:23:00 CDT [facility] Clonidine Hydrochloride 0.1 MG Oral Tablet 2016-12-28 05:42:00 Yes 0.1 mg = 1 tab, PO, PRN, 0 Refill(s) [facility] Colestipol Hydrochloride 1000 MG Oral Tablet [Colestid] 2016-12-28 05:42:00 Yes 2 gm = 2 tab, PO, PRN, # 120 tab, 0 Refi ll(s) [facility] Hyoscyamine 2016-12-28 05:37:00 Yes 0.125 mg, PO, Q4H, 0 Refill(s) [facility] Acetaminophen 300 MG / Codeine Phosphate 60 MG Oral Tablet [Tylenol with Codeine #4] 2016-12-28 05:37:00 Yes 1 ta b, PO, Q4H, PRN Pain, 0 Refill(s) Lyndon Mena Trazodone Hydrochloride 50 MG Oral Tablet 2016-12-28 05:37:00 Yes 50 mg = 1 tab, PO, Bedtime, # 30 tab, 1 Refill(s) Lyn[facility] Mena Lisinopril 2016-12-28 05:37:00 Yes 2 .5 mg, PO, Daily, 0 Refill(s) Lyn[facility] Mena 168 HR Clonidine 0.0125 MG/HR Transdermal Patch 2016-12-28 05:37 :00 Yes 1 patch, TOP, qWeek, # 12 patch, 0 Refill(s) Lyndon Mena metoprolol 100 mg oral tablet, extended release 2016-12-28 05:37 :00 Yes 100 mg = 1 tab, PO, BID, 0 Refill(s) Lyndon Mena tizanidine 6 MG Oral Capsule [Zanaflex] 2016-12-28 05:37:00 Yes 6 mg = 1 cap, PO, TID, 0 Refill(s) [facility] [place] Vital Signs Vital Name Observation Time Observation Value Comments Source Systolic (mm Hg) 2019-06-08 15:27:00 Olvinoswaldo Mena Diastolic (mm Hg) 2019-06-08 15:27:00 [facility] 2019-06-08 15:27:00 [facility] Respitory Rate 2019-06-08 15:27:00 Sabrina Christine Temperature Oral (F) 2019-06-08 15:27:00 98.2 F [facility] Height 2019-06-08 15:27:00 172.72 cm Lyndon Mena BMI Calculated 2019-06-08 15:27:00 Sabrina Christine Weight 2019-06-08 15:27:00 [facility] Systolic (mm Hg) 2018-03-26 20:23:00 Olvinoswaldo [place]ice[place]ann Diastolic (mm Hg) 2018-03-26 20:23:00 [facility] [place] Heart Rate 2018-03-26 20:23:00 [facility] Temperature Oral (F) 2018-03-26 20:23:00 98.2 F [facility] Respitory Rate 2018-03-26 20:23:00 [facility] Systolic (mm Hg) 2018-03-26 15:48:00 Olvin rial [place] Diastolic (mm Hg) 2018-03-26 15:48:00 [facility] Respitory Rate 2018-03-26 15:48:00 [facility] Heart Rate 2018-03-26 15:48:00 [facility] [place] Temperature Oral (F) 2018-03-26 15:48:00 98.2 F [facility] Respitory Rate 2018-03-26 12:59:00 [facility] [place] Heart Rate 2018-03-26 12:59:00 [facility] Systolic (mm Hg) 2018-03-26 12:59:00 [facility]vin [facility] Diastolic (mm Hg) 2018-03-26 12:59:00 [facility] Temperature Oral (F) 2018-03-26 12:59:00 98.5 F [facility] Height 2018-03-26 03:47:00 172.7 cm [facility] [place] Weight 2018-03-26 03:47:00 [facility] BMI Calculated 2018-03-26 03:47:00 [facility] [place] Height 2018-03-25 20:31:00 172.72 cm [facility] Weight 2018-03-25 20:31:00 [facility] [place] BMI Calculated 2018-03-25 20:31:00 [facility] [place] Respitory Rate 2018-02-19 17:02:00 [facility] Systolic (mm Hg) 2018-02-19 17:02:00 Olvin rial [place] Diastolic (mm Hg) 2018-02-19 17:02:00 [facility] [place] Temperature Oral (F) 2018-02-19 17:02:00 98.3 F [facility] [place] Heart Rate 2018-02-19 17:02:00 [facility] [place] Temperature Oral (F) 2018-02-19 13:03:00 98.2 F [facility] Systolic (mm Hg) 2018-02-19 13:03:00 Olvin rial [place] Diastolic (mm Hg) 2018-02-19 13:03:00 [facility] Heart Rate 2018-02-19 13:03:00 [facility] [place] Respitory Rate 2018-02-19 13:03:00 [facility] Temperature Oral (F) 2018-02-19 09:00:00 98.4 F [facility] [place] Systolic (mm Hg) 2018-02-19 09:00:00 Olvin rial [facility] Diastolic (mm Hg) 2018-02-19 09:00:00 [facility] Respitory Rate 2018-02-19 09:00:00 [facility] Heart Rate 2018-02-19 09:00:00 [facility] BMI Calculated 2018-02-18 01:32:00 [facility] Weight 2018-02-18 01:32:00 [facility] [place] Height 2018-02-18 01:32:00 172.72 cm [facility] Height 2018-02-17 21:06:00 172.72 cm [facility] Weight 2018-02-17 21:06:00 [facility] BMI Calculated 2018-02-17 21:06:00 [facility] Systolic (mm Hg) 2017-07-12 20:35:00 Olvin [facility] [place] Diastolic (mm Hg) 2017-07-12 20:35:00 [facility] Temperature Oral (F) 2017-07-12 20:35:00 99 F [facility] [place] Heart Rate 2017-07-12 20:35:00 [facility] [place] Respitory Rate 2017-07-12 20:35:00 [facility] [place] Systolic (mm Hg) 2017-07-12 16:04:00 Olvin [facility] Diastolic (mm Hg) 2017-07-12 16:04:00 [facility] [place] Respitory Rate 2017-07-12 16:04:00 [facility] [place] Heart Rate 2017-07-12 16:04:00 [facility] Temperature Oral (F) 2017-07-12 16:04:00 98.6 F [facility] [place] Respitory Rate 2017-07-12 12:43:00 [facility] [place] Systolic (mm Hg) 2017-07-12 12:43:00 Olvin [facility] Diastolic (mm Hg) 2017-07-12 12:43:00 [facility] Temperature Oral (F) 2017-07-12 12:43:00 98.6 F [facility] Heart Rate 2017-07-12 12:43:00 [facility] Weight 2017-07-12 02:50:00 [facility] BMI Calculated 2017-07-12 02:50:00 [facility] [place] Height 2017-07-12 02:50:00 172.72 cm [facility] Systolic (mm Hg) 2017-05-19 20:14:00 Olvin [facility] Diastolic (mm Hg) 2017-05-19 20:14:00 [facility] Respitory Rate 2017-05-19 20:14:00 [facility] [place] Heart Rate 2017-05-19 20:14:00 [facility] Temperature Oral (F) 2017-05-19 20:14:00 98.5 F [facility] [place] Systolic (mm Hg) 2017-05-19 16:28:00 [facility] Diastolic (mm Hg) 2017-05-19 16:28:00 [facility] Respitory Rate 2017-05-19 16:28:00 [facility] [place] Temperature Oral (F) 2017-05-19 16:28:00 98.4 F [facility] Heart Rate 2017-05-19 16:28:00 [facility] [place] Temperature Oral (F) 2017-05-19 12:36:00 98.2 F [facility] [place] Systolic (mm Hg) 2017-05-19 12:36:00 Olvin rial [place] Diastolic (mm Hg) 2017-05-19 12:36:00 [facility] [place] Respitory Rate 2017-05-19 12:36:00 [facility] Heart Rate 2017-05-19 12:36:00 [facility] Height 2017-05-19 09:54:00 172.72 cm [facility] [place] Weight 2017-05-19 09:54:00 [facility] [place] BMI Calculated 2017-05-19 09:54:00 [facility] [place] Temperature Oral (F) 2017-04-04 16:57:00 98.0 F [facility] Respitory Rate 2017-04-04 16:57:00 [facility] Heart Rate 2017-04-04 16:57:00 [facility] [place] Systolic (mm Hg) 2017-04-04 16:57:00 Olvin [facility] [place] Diastolic (mm Hg) 2017-04-04 16:57:00 [facility] Systolic (mm Hg) 2017-04-04 13:00:00 [facility] Diastolic (mm Hg) 2017-04-04 13:00:00 [facility] Respitory Rate 2017-04-04 13:00:00 [facility] Heart Rate 2017-04-04 13:00:00 [facility] [place] Temperature Oral (F) 2017-04-04 13:00:00 98.9 F [facility] [place] Heart Rate 2017-04-04 08:41:00 [facility] Temperature Oral (F) 2017-04-04 08:41:00 98.6 F [facility] [place] Systolic (mm Hg) 2017-04-04 08:41:00 Olvin rial [place] Diastolic (mm Hg) 2017-04-04 08:41:00 [facility] [place] Respitory Rate 2017-04-04 08:41:00 [facility] [place] Weight 2017-04-01 06:49:00 [facility] [place] BMI Calculated 2017-04-01 06:49:00 [facility] [place] Height 2017-04-01 06:49:00 172.72 cm [facility] BMI Calculated 2017-04-01 06:26:00 [facility] [place] Weight 2017-04-01 06:26:00 [facility] Height 2017-04-01 06:26:00 172.72 cm [facility] Heart Rate 2016-12-29 20:00:00 [facility] [place] Temperature Oral (F) 2016-12-29 20:00:00 98.5 F [facility] [place] Systolic (mm Hg) 2016-12-29 20:00:00 Olvin rial [place] Diastolic (mm Hg) 2016-12-29 20:00:00 [facility] Respitory Rate 2016-12-29 20:00:00 [facility] [place] Systolic (mm Hg) 2016-12-29 16:26:00 Olvin rial [place] Diastolic (mm Hg) 2016-12-29 16:26:00 [facility] [place] Temperature Oral (F) 2016-12-29 16:26:00 98.2 F [facility] Heart Rate 2016-12-29 16:26:00 [facility] [place] Respitory Rate 2016-12-29 16:26:00 [facility] Systolic (mm Hg) 2016-12-29 12:50:00 Olvin rial [place] Diastolic (mm Hg) 2016-12-29 12:50:00 [facility] Respitory Rate 2016-12-29 12:50:00 [facility] Heart Rate 2016-12-29 12:50:00 [facility] Temperature Oral (F) 2016-12-29 12:50:00 98.7 F [facility] [place] BMI Calculated 2016-12-29 12:17:00 [facility] Weight 2016-12-29 12:17:00 [facility] Height 2016-12-29 12:17:00 172.72 cm [facility] Weight 2016-12-28 13:09:00 [facility] [place] BMI Calculated 2016-12-28 13:09:00 [facility] [place] Height 2016-12-28 13:09:00 172.72 cm [facility] BMI Calculated 2016-12-28 05:30:00 [facility] Height 2016-12-28 05:30:00 172.72 cm [facility] [place] Weight 2016-12-28 05:30:00 [facility] [place] Procedures Procedure Date / Time Performed Performing Clinician Sourc e PHOSPHORUS LEVEL 2019-10-23 18:00:00 Homer Fabian Met raquel T4, FREE 2019-10-23 18:00:00 Homer Fabian Meth odist THYROID STIMULATING HORMONE 2019-10-23 18:00:00 Homer Fabian LIPID PANEL 2019-10-23 18:00:00 Homer Fabian HCG QUALITATIVE, SERUM SCREEN 2019-10-23 18:00:00 Homer Fabian T3 2019-10-23 18:00:00 Homer Fabian odist LIPID PANEL 2019-07-23 17:30:00 Marty Murphy Met hodist THYROID STIMULATING HORMONE 2019-07-23 17:30:00 Marty Murphy App[facility]ectomy [facility] Chole[facility] Gastric bypass [facility] [place] Hyste[facility] [place] Incision AND drainage [facility] H ermann Plan of Care Planned Activity Planned Date Details Comments Source Future Scheduled Test 2022-10-23 00:00:00 Lipid panel (proce dure) [code = 41739192] [facility] Future Scheduled Test 2020-07-01 00:00:00 INFLUENZA VACCINE [code = INFLUENZA VACCINE] Adolfo Hopson Future Scheduled Test 2020-06-01 00:00:00 INFLUENZA VACCINE (#1) [code = INFLUENZA VACCINE (#1)] [facility] r Future Scheduled Test 2015 00:00:00 BREAST CANCER SCRE ENING [code = BREAST CANCER SCREENING] [facility] Future Scheduled Test 2015 00:00:00 COLONOSCOPY SCREEN ING [code = COLONOSCOPY SCREENING] [facility] Future Scheduled Test 2015 00:00:00 SHINGLES VACCINES (#1) [code = SHINGLES VACCINES (#1)] [facility] Scheduled Test 2008-03-02 00:00:00 MEDICARE ANNUAL WE LLNESS (YEAR 2 or FIRST YEAR if no IPPE) [code = MEDICARE ANNUAL WELLNESS (YEAR 2 or FIRST YEAR if no IPPE)] [facility] r Future Scheduled Test 1986 00:00:00 Screening for oleg gnant neoplasm of cervix (procedure) [code = 289852891] [facility] Future Scheduled Test 1965 00:00:00 Screening for oleg gnant neoplasm of breast (procedure) [code = 419139185] [facility] Future Scheduled Test 1965 00:00:00 Screening for oleg gnant neoplasm of colon (procedure) [code = 138798895] [facility] Encounters Start Date/Time End Date/Time Encounter Type Admission Type [facility] Care Department Encounter ID Source 2019-06-08 10:25:30 2019-06-08 11:04:00 Outpatient Speedy Ash [facility] [id number] 2019-06-08 10:25:00 2019-06-08 10:25:00 [id number] 2018-03-25 15:22:00 2018-03-26 18:30:00 Outpatient [facility] Pe[facility] [id number] 2018-02-17 16:02:00 2018-02-19 12:18:00 Outpatient Festus Perea [facility] [id number] 2017-07-11 19:40:00 2017-07-12 17:32:00 Outpatient [facility] [id number] 2017-07-11 21:31:00 2017-07-11 21:31:00 Outpatient Macrina Camarena [facility] [id number] 2017-05-18 15:49:00 2017-05-19 18:20:00 Outpatient Leena Shrestha [facility] [id number] 2017-04-01 13:40:00 2017-04-04 13:19:00 Outpatient Mariano Moeller [facility] [id number] 2016-12-28 00:24:00 2016-12-29 19:18:00 Outpatient Lawrence Akhtar [facility] [id number] 2014-10-07 08:39:00 2014-10-07 23:59:00 Outpatient Scott Welsh [facility] [id number] 2014-09-02 14:12:00 2014-09-02 23:59:00 Outpatient Scott Welsh IE [place] [id number] Results Test Description Test Time Test Comments Results Result Comments Source - MRI L-SPINE W/O CONT 2020-04-20 19:27:00 FAX: Viri Real [phone] [place]: St: REG FAX: Desmond Velasquez DO [phone] Name: ANGELA ALLEN [facility] : 1965 Age/S: 54/F [address] [place] [address] Unit #: [id number] Loc: [place] [address] Phys: Desmond Velasquez DO Acct: [id number] Dis Date: Status: REG ER PHONE #: [phone] Exam Date: 04/20/2020 173 FAX #: [phone] Reason: low back pain, loss of bowel control EXAMS: CPT CODE: [id number] MRI L-SPINE W/O CONT 14849 Clinical Indication: Low back pain, loss of bowel control. Comparison: Prior MRI dated 02/25/2017. TECHNIQUE: Multiplanar T1, T2, STIR weighted MRI of the lumbar spine is performed on the 1.5 Tiffany magnet. CONTRAST: None FINDINGS: For the sake of n omenclature, five lumbar vertebrae are assumed. ALIGNMENT AND GENERAL ASSESSMENT: The lumbar vertebrae demonstrate normal height, alignment and marrow signal. No acute fracture or subluxation. Degenerative changes in the form of disc desiccation, diffuse intervertebral disc height, marginal osteophytes and facet arthropathy. The bone marrow is normal for the patient?s age. There is no fracture or compression deformity. The anterior and posterior paraspinal soft tissues are normal. The conus medullaris ends at the L1 level and demonstrates normal signal. DISC SPACES: T12-L1: No significant spinal canal or foraminal stenosis. L1- L2: No significant spinal canal or foraminal stenosis. L2-L3: Bulging disc with ligamentum flavum thickening, bilateral facet arthropathy causing mild narrowing of both lateral recesses. Mild spinal canal and mild left and fgin-yi-fkjiybtl right foraminal stenosis. L3-L4: Ligamentum flavum thickening with mild bilateral facet arthropathy. No significant spinal canal stenosis. Mild bilateral foraminal stenosis. L4-L5: Moderate bilateral facet arthropathy with ligamentum flavum thickening. No significant spinal canal stenosis. Mild left foraminal stenosis. L5-S1: Mild left paracentral disc bulge with stable linear annular PAGE 1 Signed Report (CONTINUED) FAX: Viri Real [place]: St: REG FAX: Desmond Velasquez DO [phone] Name: ANGELA ALLEN [facility] : 1965 Age/S: 54/F [address] [place] [address] Unit #: [id number] Loc: [place] [address] Phys: Desmond Velasquez DO Acct: [id number] Dis Date: Status: REG ER PHONE #: [phone] Exam Date: 04/20/2020 173 FAX #: [phone] Reason: low back pain, loss of bowel control EXAMS: CPT CODE: [id number] MRI L-SPINE W/O CONT 02310 <Continued> fissure. No significant spinal canal or foraminal stenosis. IMPRESSION: 1. No acute fracture or subluxation. 2. Degenerative changes in the lumbar spine. No critical spinal canal stenosis. Mild spinal canal with mild left and pawv-jo-kcnctdoz right foraminal stenosis at L2-L3. 3. At L5-S1, Stable left paracentral disc bulge with linear annular fissure. No significant spinal canal or foraminal stenosis. SL: CASTROH at 1926 Reported and signed by: Margoth Brown M.D. CC: Viri Avila MD; Desmond Velasquez DO Technologist: RT Rosalva(R)(CT) Trnscrd Date/Time/By: 04/20/2020 (1926) : By: [email or web address] Orig Print D/T: S: 04/20/2020 (1929) PAGE 2 Signed Report CBC W/AUTO DIFF 2019-10-17 09:15:00 Test Item WHITE BLOOD CELL (test code = WBC) 3.55 x10 3/uL 4.5-11.0 L RED BLOOD CELL (test code = RBC) 3.66 x10 6/uL 3.54-5.02 N HEMOGLOBIN (test code = HGB) 9.4 g/dL 11.0-15.0 L HEMATOCRIT (test code = HCT) 30.9 % 33.0-45.0 L MEAN CELL VOLUME (test code = MCV) 84.4 fL 81.0-99.0 N MEAN CELL HGB (test code = MCH) 25.7 pg 27.0-33.0 L MEAN CELL HGB CONCETRATION (test code = MCHC) 30.4 g/dL 33.0-37. 0 L RED CELL DISTRIBUTION WIDTH CV (test code = RDW) 15.7 % 11.5- 14.5 H RED CELL DISTRIBUTION WIDTH SD (test code = RDW-SD) 47.8 fL 37 .0-54.0 N PLATELET COUNT (test code = PLT) 194 x10 3/uL 150-400 N MEAN PLATELET VOLUME (test code = MPV) 11.2 fL 7.0-9.0 H NEUTROPHIL % (test code = NT%) 34.3 % 56.0-77.0 L IMMATURE GRANULOCYTE % (test code = IG%) 0.0 % 0.0-2.0 N LYMPHOCYTE % (test code = LY%) 49.3 % 14.0-32.0 H MONOCYTE % (test code = MO%) 11.3 % 4.8-9.0 H EOSINOPHIL % (test code = EO%) 3.7 % 0.3-3.7 N BASOPHIL % (test code = BA%) 1.4 % 0.0-2.0 N NUCLEATED RBC % (test code = NRBC%) 0.0 % 0-0 N NEUTROPHIL # (test code = NT#) 1.22 x10 3/uL 2.0-7.6 L IMMATURE GRANULOCYTE # (test code = IG#) 0.00 x10 3/uL 0.00-0.03 N LYMPHOCYTE # (test code = LY#) 1.75 x10 3/uL 1.0-3.8 N MONOCYTE # (test code = MO#) 0.40 x10 3/uL 0.1-0.8 N EOSINOPHIL # (test code = EO#) 0.13 x10 3/uL 0.0-0.2 N BASOPHIL # (test code = BA#) 0.05 x10 3/uL 0.0-0.2 N NUCLEATED RBC # (test code = NRBC#) 0.00 x10 3/uL 0.0-0.1 N MANUAL DIFF REQUIRED (test code = MDIFF) NO CBC W/AUTO [id number] 13:10:00* Test Item Value Reference Range Interpretation Comments WHITE BLOOD CELL (test code = WBC) 3.49 x10 3/uL 4.5-11.0 L RED BLOOD CELL (test code = RBC) 2.79 x10 6/uL 3.54-5.02 L HEMOGLOBIN (test code = HGB) 6.9 g/dL 11.0-15.0 L HEMATOCRIT (test code = HCT) 23.6 % 33.0-45.0 L MEAN CELL VOLUME (test code = MCV) 84.6 fL 81.0-99.0 N MEAN CELL HGB (test code = MCH) 24.7 pg 27.0-33.0 L MEAN CELL HGB CONCETRATION (test code = MCHC) 29.2 g/dL 33.0-37. 0 L RED CELL DISTRIBUTION WIDTH CV (test code = RDW) 16.1 % 11.5- 14.5 H RED CELL DISTRIBUTION WIDTH SD (test code = RDW-SD) 49.4 fL 37 .0-54.0 N PLATELET COUNT (test code = PLT) 191 x10 3/uL 150-400 N MEAN PLATELET VOLUME (test code = MPV) 9.9 fL 7.0-9.0 H NEUTROPHIL % (test code = NT%) 25.8 % 56.0-77.0 L IMMATURE GRANULOCYTE % (test code = IG%) 0.0 % 0.0-2.0 N LYMPHOCYTE % (test code = LY%) 59.3 % 14.0-32.0 H MONOCYTE % (test code = MO%) 11.5 % 4.8-9.0 H EOSINOPHIL % (test code = EO%) 2.3 % 0.3-3.7 N BASOPHIL % (test code = BA%) 1.1 % 0.0-2.0 N NUCLEATED RBC % (test code = NRBC%) 0.0 % 0-0 N NEUTROPHIL # (test code = NT#) 0.90 x10 3/uL 2.0-7.6 L IMMATURE GRANULOCYTE # (test code = IG#) 0.00 x10 3/uL 0.00-0.03 N LYMPHOCYTE # (test code = LY#) 2.07 x10 3/uL 1.0-3.8 N MONOCYTE # (test code = MO#) 0.40 x10 3/uL 0.1-0.8 N EOSINOPHIL # (test code = EO#) 0.08 x10 3/uL 0.0-0.2 N BASOPHIL # (test code = BA#) 0.04 x10 3/uL 0.0-0.2 N NUCLEATED RBC # (test code = NRBC#) 0.00 x10 3/uL 0.0-0.1 N MANUAL DIFF REQUIRED (test code = MDIFF) NO COMMENTS: STATTISSUE [id number] 10:30:00Surgical Pathology Report Case: [id number] Authorizing Provider: Buster Nazario MD Collected: 03/12/2019 1514 Ordering Location: [facility] Radiology Angio Received: 03/12/20195 Pathologist: Misty Meyer MD Specimen: Liver, Bx LIVER, CORE NEEDLE BIOPSIES: - SUGGESTIVE OF MILD CHOLANGITIS (SEE MICRO) - MINUTE MICROVESICULAR STEATOSIS (<5%) - NO INCREASED IRON ON IRON STAIN Signing Pathologist Direct Phone Line: [phone] signed by Misty Bella MD on 03/18/2019 at 10:30 [id number] to patient's chart her BMI is 26.42 kg/m . The patient's total protein: 6.2, albumin: 3.6, ALT: 39, AST: 19, total bili: 0.2 and alk phos: 156The specimen is received in formalin, labeled with patient's name and medical record number, as LIVER are 5 cruz core biopsies, from 0.2 to 1.5 cm long and 0.1 in diameter. The specimen is submitted entirely in one cassette. Adequate liver is available for evaluation. Focally, portal tracts have mild increased inflammatory cells, which are mostly lymphocytes with few neutrophils. Scattered neutrophils are seen in the bile duct epithelial cells, which is usually suggestive of bile duct (partial) obstruction. Portal tract connective tissue is not increased; which is confirmed by trichrome and reticulin stains. Minimal microvesicular steatosis is seen. Rare hepatocytolysis is noted. No cholestasis, sinusoidal dilatation /congestion, ballooning degeneration, granuloma, viral inclusions, Morena-Denk body or neoplasm is seen. No anti-trypsin globules are seen on PASD. Iron stain shows no increased iron. The interpretation of this case included the use of immunohistochemistry or special stains.Control Slides Examined: In-house known positive controls were evaluated along with the test tissue. These control slides run alongside of the patients sample show appropriate staining. Internal positive and negative controls when available are evaluated.ANG, TRANSCATHETER [id number] 16:04:00REFKANWAL HERNANDEZ: JAYLYN MORGANGeneral anesthesia with propofolGeneral anesthesia with propofolSpecify Organ:->liverReason for Exam:-> abnormal liver enzymes.FINAL REPORT HISTORY: Abnormal liver function tests PROCEDURE: Following informed written consent, did sonographic examination of the right cervical region was performed demonstrating an occluded right internal jugular vein. Therefore, the patient's left cervical region was prepped and draped in the usual sterile manner. 2% lidocaine was given locally for anesthesia. Additionally, the patient received 2 mg of IV Versed and 100 mcg IV fentanyl for conscious sedation and pain control. Vital signs were monitored and remained stable. Conscious sedation and continuous patient monitoring were performed by the attending radiologist and a registered nurse for approximately 30 minutes during the procedure. Access was gained to the right internal jugular vein using ultrasound guidance a micropuncture needle. A Spencer wire was advanced through the micropuncture sheath and into the inferior vena cava. A 9 Samoan sheath was placed. The purpose catheter and wire were used to carefully select to perform a hepatic venogram. Biopsy sheath was advanced over the catheter and wire into the middle hepatic vein. A total of three 19-gauge core tissue samples were obtained from the hepatic parenchyma adjacent to the hepatic vein. Samples were submitted in formalin for pathologic evaluation. Repeat venography was performed following the biopsy. Catheter and sheath were then removed and hemostasis achieved without immediate complications. Patient was discharged from the department in stable condition. FINDINGS: Single sonographic image of the right jugular vein prior to the p rocedure demonstrates an occluded vein. Limited sonographic examination of the l eft internal jugular vein demonstrates a patent jugular vein. Normal compressibi lity of this vessel is seen without visible thrombus. Ultrasound image of the in ternal jugular veins were obtained and archived on PACs. Hepatic venogram shows patent hepatic veins without venous anomalies. During the biopsy, the biopsy nee dle is noted in the hepatic parenchyma adjacent to the middle hepatic vein. Foll owing the biopsy, repeat venography shows no evidence for contrast extravasation or hemorrhage. Hepatic Venous Pressures as follows: Wedged hepatic pressure: 4 mmHgHepatic venous pressure: 1 mmHgRight atrial pressure: 1 mmHg IMPRESSION: 1. Successful uncomplicated transjugular liver biopsy from a left internal jugular approach. The patient's right internal jugular vein was occluded. A total of thr ee 19-gauge core tissue samples were obtained via the middle hepatic vein. Hepat ic venous pressures, as detailed above Fluoroscopy time: 3.8 minsEstimated dose reported as (Ka,r): 18.5 mGy Signed: Jaylyn Falcon MDReport Verified Date/Time: 03/13/2019 16:04:29 Reading Location: [address] Body Reading Room W/PLT COUNT & AUTO [id number] 13:13:00* Test Item Value Reference Range Interpretation Comments WHITE BLOOD CELL COUNT (BEAKER) (test code = 775) 3.9 K/ L 3.5- 10.5 RED BLOOD CELL COUNT (BEAKER) (test code = 761) 2.84 M/ L 3.93-5 .22 L HEMOGLOBIN (BEAKER) (test code = 410) 8.9 GM/DL 11.2-15.7 L HEMATOCRIT (BEAKER) (test code = 411) 28.0 % 34.1-44.9 L MEAN CORPUSCULAR VOLUME (BEAKER) (test code = 753) 98.6 fL 79. 4-94.8 H MEAN CORPUSCULAR HEMOGLOBIN (BEAKER) (test code = 751) 31.3 pg 25.6-32.2 MEAN CORPUSCULAR HEMOGLOBIN CONC (BEAKER) (test code = 752) 31.8 GM/DL 32.2-35.5 L RED CELL DISTRIBUTION WIDTH (BEAKER) (test code = 412) 14.4 % 11.7-14.4 PLATELET COUNT (BEAKER) (test code = 756) 164 K/CU MM 150-450 MEAN PLATELET VOLUME (BEAKER) (test code = 754) 9.6 fL 9.4-12 .3 NUCLEATED RED BLOOD CELLS (BEAKER) (test code = 413) 0 /100 WBC 0 -0 (CELLAVISION MANUAL DIFF)2019-03-12 13:13:00* Test Item Value Reference Range Interpretation Comments NEUTROPHILS - REL (CELLAVISION)(BEAKER) (test code = 2816) 27 % LYMPHOCYTES - REL (CELLAVISION)(BEAKER) (test code = 2817) 60 % MONOCYTES - REL (CELLAVISION)(BEAKER) (test code = 2818) 10 % EOSINOPHILS - REL (CELLAVISION)(BEAKER) (test code = 2819) 2 % BASOPHILS - REL (CELLAVISION)(BEAKER) (test code = 2820) 1 % NEUTROPHILS - ABS (CELLAVISION)(BEAKER) (test code = 2830) 1.05 K/ul 1.56-6.13 L LYMPHOCYTES - ABS (CELLAVISION)(BEAKER) (test code = 2831) 2.34 K/ul 1.18-3.74 MONOCYTES - ABS (CELLAVISION)(BEAKER) (test code = 2832) 0.39 K/uL 0.24-0.36 H EOSINOPHILS - ABS (CELLAVISION)(BEAKER) (test code = 2834) 0.08 K/uL 0.04-0.36 BASOPHILS - ABS (CELLAVISION)(BEAKER) (test code = 2835) 0.04 K/uL 0.01-0.08 TOTAL COUNTED (BEAKER) (test code = 1351) 100 WBC MORPHOLOGY (BEAKER) (test code = 487) Normal PLT MORPHOLOGY (BEAKER) (test code = 486) Normal POLYCHROMATOPHILLIC RBCS(BEAKER) (test code = 478) 1+ few ANISOCYTOSIS (BEAKER) (test code = 961) 1+ few POIKILOCYTES (BEAKER) (test code = 966) 1+ few ELLIPTOCYTES (BEAKER) (test code = 962) 1+ few OVALOCYTES (BEAKER) (test code = 477) 1+ few ACANTHOCYTES (BEAKER) (test code = 471) 1+ few ARTIFACT (CELLAVISION)(BEAKER) (test code = 3432) Present PAPPENHEIMER (CELLAVISION)(BEAKER) (test code = 3435) 1+ few PLATELET CONCENTRATION (CELLAVISION)(BEAKER) (test code = 3438) [place] qu[place] Received comment: User comments: Slide comments: [id number] 12:12:00* Test Item Value Reference Range Interpretation Comments PARTIAL THROMBOPLASTIN TIME (BEAKER) (test code = 760) 128.5 sec onds 22.5-36.0 H COMPREHENSIVE METABOLIC [id number] 11:43:00* Test Item Value Reference Range Interpretation Comments TOTAL PROTEIN (BEAKER) (test code = 770) 6.2 gm/dL 6.0-8.3 ALBUMIN (BEAKER) (test code = 1145) 3.6 g/dL 3.5-5.0 ALKALINE PHOSPHATASE (BEAKER) (test code = 346) 156 U/L 40-150 H BILIRUBIN TOTAL (BEAKER) (test code = 377) 0.2 mg/dL 0.2-1.2 SODIUM (BEAKER) (test code = 381) 141 meq/L 136-145 POTASSIUM (BEAKER) (test code = 379) 4.7 meq/L 3.5-5.1 CHLORIDE (BEAKER) (test code = 382) 112 meq/L 98-107 H CO2 (BEAKER) (test code = 355) 25 meq/L 22-29 BLOOD UREA NITROGEN (BEAKER) (test code = 354) 30 mg/dL 7-21 H CREATININE (BEAKER) (test code = 358) 0.98 mg/dL 0.57-1.25 GLUCOSE RANDOM (BEAKER) (test code = 652) 93 mg/dL 70-105 CALCIUM (BEAKER) (test code = 697) 8.0 mg/dL 8.4-10.2 L AST (SGOT) (BEAKER) (test code = 353) 19 U/L 5-34 ALT (SGPT) (BEAKER) (test code = 347) 39 U/L 6-55 EGFR (BEAKER) (test code = 1092) 72 mL/min/1.73 sq m ESTIMATED GFR IS NOT ACCURATE CREATININE CLEARANCE IN PREDICTING GLOMERULAR FILTRATION RATE. ESTIMATED GFR IS NOT APPLICABLE FOR DIALYSIS PATIENTS. PROTHROMBIN [id number] 11:34:00* Test Item Value Reference Range Interpretation Comments PROTIME (BEAKER) (test code = 759) 13.3 seconds 11.9-14.2 INR (BEAKER) (test code = 370) 1.1 <=5.9 Effective 02/26/2019: PT Reference Range ChangeNew: 11.9-14.2 Previous: 11.7-14. 7RECOMMENDED COUMADIN/WARFARIN INR THERAPY RANGESSTANDARD DOSE: 2.0-3.0 Include s: PROPHYLAXIS for venous thrombosis, systemic embolization; TREATMENT for venou s thrombosis and/or pulmonary embolus.HIGH RISK: Target INR is 2.5-3.5 for patie nts wiht mechanical heart valves.HGB [id number] 05:31:00* Test Item Value Reference Range Interpretation Comments HEMOGLOBIN (test code = HGB) 8.8 gram/dL 11.5-15.5 L HEMATOCRIT (test code = HCT) 30.4 % 36.0-46.0 L HGB [id number] 21:53:00* Test Item Value Reference Range Interpretation Comments HEMOGLOBIN (test code = HGB) 7.7 gram/dL 11.5-15.5 L HEMATOCRIT (test code = HCT) 27.2 % 36.0-46.0 L CBC W/AUTO [id number] 13:54:00* Test Item Value Reference Range Interpretation Comments WHITE BLOOD CELL (test code = WBC) 5.4 K/mm3 4.5-12.5 N RED BLOOD CELL (test code = RBC) 2.73 mill/mm3 3.7-5.2 L HEMOGLOBIN (test code = HGB) 6.5 gram/dL 11.5-15.5 L HEMATOCRIT (test code = HCT) 22.7 % 36.0-46.0 L MEAN CELL VOLUME (test code = MCV) 83.2 fL 80-98 N MEAN CELL HGB (test code = MCH) 23.8 picogram 27.0-33.0 L MEAN CELL HGB CONCETRATION (test code = MCHC) 28.6 gram/dL 33.0-36. 0 L RED CELL DISTRIBUTION WIDTH (test code = RDW) 21.5 % 11.6-16. 2 H RED CELL DISTRIBUTION WIDTH SD (test code = RDW-SD) 54.5 fL 37 .0-51.0 H PLATELET COUNT (test code = PLT) 310 K/mm3 150-450 N MEAN PLATELET VOLUME (test code = MPV) 10.4 fL 6.7-11.0 N NEUTROPHIL % (test code = NT%) 72.4 % 39.0-69.0 H IMMATURE GRANULOCYTE % (test code = IG%) 0.9 % 0.0-5.0 N LYMPHOCYTE % (test code = LY%) 19.7 % 25.0-55.0 L MONOCYTE % (test code = MO%) 5.7 % 0.0-10.0 N EOSINOPHIL % (test code = EO%) 0.7 % 0.0-5.0 N BASOPHIL % (test code = BA%) 0.6 % 0.0-1.0 N NUCLEATED RBC % (test code = NRBC%) 0.0 % 0-0 N NEUTROPHIL # (test code = NT#) 3.94 K/mm3 1.8-7.7 N IMMATURE GRANULOCYTE # (test code = IG#) 0.05 x10 3/uL 0-0.03 H LYMPHOCYTE # (test code = LY#) 1.07 K/mm3 1.0-5.0 N MONOCYTE # (test code = MO#) 0.31 K/mm3 0-0.8 N EOSINOPHIL # (test code = EO#) 0.04 K/mm3 0.0-0.5 N BASOPHIL # (test code = BA#) 0.03 K/mm3 0.0-0.2 N NUCLEATED RBC # (test code = NRBC#) 0.00 K/mm3 0.0-0.1 N MANUAL DIFF REQUIRED (test code = MDIFF) NO, ONLY SCAN NEEDED DIFFERENTIAL [id number] 13:54:00* Test Item Value Reference Range Interpretation Comments STAIN ACCEPTABILITY (test code = STN ACCEPTABLE) STAIN ACCEPTABLE POLYCHROMASIA (test code = POLC) 2+ HYPOCHROMIA (test code = HYPO) 1+ POIKILOCYTOSIS (test code = POIK) 1+ ANISOCYTOSIS (test code = ANISO) 2+ MACROCYTOSIS (test code = MACR) 1+ ELLIPTOCYTES (test code = ELL) 1+ SCHISTOCYTES (test code = REMY) 1+ PLATELET ESTIMATE (test code = PLTEST) ADEQUATE PLATELET MORPHOLOGY (test code = PLTMORPH) NORMAL COMPREHENSIVE METABOLIC [id number] 13:30:00* Test Item Value Reference Range Interpretation Comments SODIUM (test code = NA) 139 mmol/L 136-145 N POTASSIUM (test code = K) 3.7 mmol/L 3.5-5.1 N CHLORIDE (test code = CL) 107.0 mmol/L 98-107 N CARBON DIOXIDE (test code = CO2) 25.0 mmol/L 21-32 N ANION GAP (test code = GAP) 10.7 10-20 N GLUCOSE (test code = GLU) 129 mg/dL 74-106 H BLOOD UREA NITROGEN (test code = BUN) 11 mg/dL 7-18 N GLOMERULAR FILTRATION RATE (test code = GFR) > 60 mL/min >=60 Estimated GFR by using Modified MDRD formula.Chronic kidney disease is defined as either kidney damageor GFR <60 mL/min/1.73 m2 for >3 months. CREATININE (test code = CREAT) 0.60 mg/dL 0.55-1.02 N Note change in reference range due to change in reagent. BUN/CREATININE RATIO (test code = BUN/CREA) 18.0 10-20 N TOTAL PROTEIN (test code = PROT) 7.1 gram/dL 6.4-8.2 N ALBUMIN (test code = ALB) 3.3 g/dL 3.4-5.0 L GLOBULIN (test code = GLOB) 3.8 gram/dL 2.7-4.2 N ALBUMIN/GLOBULIN RATIO (test code = A/G) 0.9 0.75-1.50 N CALCIUM (test code = CA) 7.9 mg/dL 8.5-10.1 L BILIRUBIN TOTAL (test code = BILT) 0.20 mg/dL 0.0-1.0 N SGOT/AST (test code = AST) 17 IUnit/L 15-37 N SGPT/ALT (test code = ALT) 21 IUnit/L 12-78 N ALKALINE PHOSPHATASE TOTAL (test code = ALKP) 98 IUnit/L 45-117 N Note change in reference range due to change in reagent. COMPREHENSIVE METABOLIC [id number] 13:23:00* Test Item Value Reference Range Interpretation Comments SODIUM (test code = NA) 139 mmol/L 136-145 N POTASSIUM (test code = K) 3.7 mmol/L 3.5-5.1 N CHLORIDE (test code = CL) 107.0 mmol/L 98-107 N CARBON DIOXIDE (test code = CO2) mmol/L 21-32 ANION GAP (test code = GAP) 10-20 GLUCOSE (test code = GLU) mg/dL 74-106 BLOOD UREA NITROGEN (test code = BUN) mg/dL 7-18 GLOMERULAR FILTRATION RATE (test code = GFR) mL/min >=60 CREATININE (test code = CREAT) mg/dL 0.55-1.02 BUN/CREATININE RATIO (test code = BUN/CREA) 10-20 TOTAL PROTEIN (test code = PROT) gram/dL 6.4-8.2 ALBUMIN (test code = ALB) g/dL 3.4-5.0 GLOBULIN (test code = GLOB) gram/dL 2.7-4.2 ALBUMIN/GLOBULIN RATIO (test code = A/G) 0.75-1.50 CALCIUM (test code = CA) mg/dL 8.5-10.1 BILIRUBIN TOTAL (test code = BILT) mg/dL 0.0-1.0 SGOT/AST (test code = AST) IUnit/L 15-37 SGPT/ALT (test code = ALT) IUnit/L 12-78 ALKALINE PHOSPHATASE TOTAL (test code = ALKP) IUnit/L 45-117 CBC W/AUTO [id number] 13:14:00* Test Item Value Reference Range Interpretation Comments WHITE BLOOD CELL (test code = WBC) 5.4 K/mm3 4.5-12.5 N RED BLOOD CELL (test code = RBC) 2.73 mill/mm3 3.7-5.2 L HEMOGLOBIN (test code = HGB) 6.5 gram/dL 11.5-15.5 L HEMATOCRIT (test code = HCT) 22.7 % 36.0-46.0 L MEAN CELL VOLUME (test code = MCV) 83.2 fL 80-98 N MEAN CELL HGB (test code = MCH) 23.8 picogram 27.0-33.0 L MEAN CELL HGB CONCETRATION (test code = MCHC) 28.6 gram/dL 33.0-36. 0 L RED CELL DISTRIBUTION WIDTH (test code = RDW) 21.5 % 11.6-16. 2 H RED CELL DISTRIBUTION WIDTH SD (test code = RDW-SD) 54.5 fL 37 .0-51.0 H PLATELET COUNT (test code = PLT) 310 K/mm3 150-450 N MEAN PLATELET VOLUME (test code = MPV) 10.4 fL 6.7-11.0 N NEUTROPHIL % (test code = NT%) 72.4 % 39.0-69.0 H IMMATURE GRANULOCYTE % (test code = IG%) 0.9 % 0.0-5.0 N LYMPHOCYTE % (test code = LY%) 19.7 % 25.0-55.0 L MONOCYTE % (test code = MO%) 5.7 % 0.0-10.0 N EOSINOPHIL % (test code = EO%) 0.7 % 0.0-5.0 N BASOPHIL % (test code = BA%) 0.6 % 0.0-1.0 N NUCLEATED RBC % (test code = NRBC%) 0.0 % 0-0 N NEUTROPHIL # (test code = NT#) 3.94 K/mm3 1.8-7.7 N IMMATURE GRANULOCYTE # (test code = IG#) 0.05 x10 3/uL 0-0.03 H LYMPHOCYTE # (test code = LY#) 1.07 K/mm3 1.0-5.0 N MONOCYTE # (test code = MO#) 0.31 K/mm3 0-0.8 N EOSINOPHIL # (test code = EO#) 0.04 K/mm3 0.0-0.5 N BASOPHIL # (test code = BA#) 0.03 K/mm3 0.0-0.2 N NUCLEATED RBC # (test code = NRBC#) 0.00 K/mm3 0.0-0.1 N MANUAL DIFF REQUIRED (test code = MDIFF) NO, ONLY SCAN NEEDED DIFFERENTIAL [id number] 13:14:00* Test Item Value Reference Range Interpretation Comments STAIN ACCEPTABILITY (test code = STN ACCEPTABLE) CABOT RINGS (test code = CAB) MORPHOLOGY COMMENT (test code = MOC) PLATELET ESTIMATE (test code = PLTEST) PLATELET MORPHOLOGY (test code = PLTMORPH) CBC W/AUTO [id number] 13:14:00* Test Item Value Reference Range Interpretation Comments WHITE BLOOD CELL (test code = WBC) 5.4 K/mm3 4.5-12.5 N RED BLOOD CELL (test code = RBC) 2.73 mill/mm3 3.7-5.2 L HEMOGLOBIN (test code = HGB) 6.5 gram/dL 11.5-15.5 L HEMATOCRIT (test code = HCT) 22.7 % 36.0-46.0 L MEAN CELL VOLUME (test code = MCV) 83.2 fL 80-98 N MEAN CELL HGB (test code = MCH) 23.8 picogram 27.0-33.0 L MEAN CELL HGB CONCETRATION (test code = MCHC) 28.6 gram/dL 33.0-36. 0 L RED CELL DISTRIBUTION WIDTH (test code = RDW) 21.5 % 11.6-16. 2 H RED CELL DISTRIBUTION WIDTH SD (test code = RDW-SD) 54.5 fL 37 .0-51.0 H PLATELET COUNT (test code = PLT) 310 K/mm3 150-450 N MEAN PLATELET VOLUME (test code = MPV) 10.4 fL 6.7-11.0 N NEUTROPHIL % (test code = NT%) 72.4 % 39.0-69.0 H IMMATURE GRANULOCYTE % (test code = IG%) 0.9 % 0.0-5.0 N LYMPHOCYTE % (test code = LY%) 19.7 % 25.0-55.0 L MONOCYTE % (test code = MO%) 5.7 % 0.0-10.0 N EOSINOPHIL % (test code = EO%) 0.7 % 0.0-5.0 N BASOPHIL % (test code = BA%) 0.6 % 0.0-1.0 N NUCLEATED RBC % (test code = NRBC%) 0.0 % 0-0 N NEUTROPHIL # (test code = NT#) 3.94 K/mm3 1.8-7.7 N IMMATURE GRANULOCYTE # (test code = IG#) 0.05 x10 3/uL 0-0.03 H LYMPHOCYTE # (test code = LY#) 1.07 K/mm3 1.0-5.0 N MONOCYTE # (test code = MO#) 0.31 K/mm3 0-0.8 N EOSINOPHIL # (test code = EO#) 0.04 K/mm3 0.0-0.5 N BASOPHIL # (test code = BA#) 0.03 K/mm3 0.0-0.2 N NUCLEATED RBC # (test code = NRBC#) 0.00 K/mm3 0.0-0.1 N MANUAL DIFF REQUIRED (test code = MDIFF) NO, ONLY SCAN NEEDED DIFFERENTIAL [id number] 13:14:00* Test Item Value Reference Range Interpretation Comments STAIN ACCEPTABILITY (test code = STN ACCEPTABLE) CABOT RINGS (test code = CAB) MORPHOLOGY COMMENT (test code = MOC) PLATELET ESTIMATE (test code = PLTEST) PLATELET MORPHOLOGY (test code = PLTMORPH) CBC W/AUTO [id number] 13:14:00* Test Item Value Reference Range Interpretation Comments WHITE BLOOD CELL (test code = WBC) 5.4 K/mm3 4.5-12.5 N RED BLOOD CELL (test code = RBC) 2.73 mill/mm3 3.7-5.2 L HEMOGLOBIN (test code = HGB) 6.5 gram/dL 11.5-15.5 L HEMATOCRIT (test code = HCT) 22.7 % 36.0-46.0 L MEAN CELL VOLUME (test code = MCV) 83.2 fL 80-98 N MEAN CELL HGB (test code = MCH) 23.8 picogram 27.0-33.0 L MEAN CELL HGB CONCETRATION (test code = MCHC) 28.6 gram/dL 33.0-36. 0 L RED CELL DISTRIBUTION WIDTH (test code = RDW) 21.5 % 11.6-16. 2 H RED CELL DISTRIBUTION WIDTH SD (test code = RDW-SD) 54.5 fL 37 .0-51.0 H PLATELET COUNT (test code = PLT) 310 K/mm3 150-450 N MEAN PLATELET VOLUME (test code = MPV) 10.4 fL 6.7-11.0 N NEUTROPHIL % (test code = NT%) 72.4 % 39.0-69.0 H IMMATURE GRANULOCYTE % (test code = IG%) 0.9 % 0.0-5.0 N LYMPHOCYTE % (test code = LY%) 19.7 % 25.0-55.0 L MONOCYTE % (test code = MO%) 5.7 % 0.0-10.0 N EOSINOPHIL % (test code = EO%) 0.7 % 0.0-5.0 N BASOPHIL % (test code = BA%) 0.6 % 0.0-1.0 N NUCLEATED RBC % (test code = NRBC%) 0.0 % 0-0 N NEUTROPHIL # (test code = NT#) 3.94 K/mm3 1.8-7.7 N IMMATURE GRANULOCYTE # (test code = IG#) 0.05 x10 3/uL 0-0.03 H LYMPHOCYTE # (test code = LY#) 1.07 K/mm3 1.0-5.0 N MONOCYTE # (test code = MO#) 0.31 K/mm3 0-0.8 N EOSINOPHIL # (test code = EO#) 0.04 K/mm3 0.0-0.5 N BASOPHIL # (test code = BA#) 0.03 K/mm3 0.0-0.2 N NUCLEATED RBC # (test code = NRBC#) 0.00 K/mm3 0.0-0.1 N MANUAL DIFF REQUIRED (test code = MDIFF) NO, ONLY SCAN NEEDED DIFFERENTIAL [id number] 13:14:00* Test Item Value Reference Range Interpretation Comments STAIN ACCEPTABILITY (test code = STN ACCEPTABLE) MORPHOLOGY COMMENT (test code = MOC) PLATELET ESTIMATE (test code = PLTEST) PLATELET MORPHOLOGY (test code = PLTMORPH) CBC W/AUTO [id number] 13:14:00* Test Item Value Reference Range Interpretation Comments WHITE BLOOD CELL (test code = WBC) 5.4 K/mm3 4.5-12.5 N RED BLOOD CELL (test code = RBC) 2.73 mill/mm3 3.7-5.2 L HEMOGLOBIN (test code = HGB) 6.5 gram/dL 11.5-15.5 L HEMATOCRIT (test code = HCT) 22.7 % 36.0-46.0 L MEAN CELL VOLUME (test code = MCV) 83.2 fL 80-98 N MEAN CELL HGB (test code = MCH) 23.8 picogram 27.0-33.0 L MEAN CELL HGB CONCETRATION (test code = MCHC) 28.6 gram/dL 33.0-36. 0 L RED CELL DISTRIBUTION WIDTH (test code = RDW) 21.5 % 11.6-16. 2 H RED CELL DISTRIBUTION WIDTH SD (test code = RDW-SD) 54.5 fL 37 .0-51.0 H PLATELET COUNT (test code = PLT) 310 K/mm3 150-450 N MEAN PLATELET VOLUME (test code = MPV) 10.4 fL 6.7-11.0 N NEUTROPHIL % (test code = NT%) 72.4 % 39.0-69.0 H IMMATURE GRANULOCYTE % (test code = IG%) 0.9 % 0.0-5.0 N LYMPHOCYTE % (test code = LY%) 19.7 % 25.0-55.0 L MONOCYTE % (test code = MO%) 5.7 % 0.0-10.0 N EOSINOPHIL % (test code = EO%) 0.7 % 0.0-5.0 N BASOPHIL % (test code = BA%) 0.6 % 0.0-1.0 N NUCLEATED RBC % (test code = NRBC%) 0.0 % 0-0 N NEUTROPHIL # (test code = NT#) 3.94 K/mm3 1.8-7.7 N IMMATURE GRANULOCYTE # (test code = IG#) 0.05 x10 3/uL 0-0.03 H LYMPHOCYTE # (test code = LY#) 1.07 K/mm3 1.0-5.0 N MONOCYTE # (test code = MO#) 0.31 K/mm3 0-0.8 N EOSINOPHIL # (test code = EO#) 0.04 K/mm3 0.0-0.5 N BASOPHIL # (test code = BA#) 0.03 K/mm3 0.0-0.2 N NUCLEATED RBC # (test code = NRBC#) 0.00 K/mm3 0.0-0.1 N MANUAL DIFF REQUIRED (test code = MDIFF) NO, ONLY SCAN NEEDED DIFFERENTIAL [id number] 13:14:00* Test Item Value Reference Range Interpretation Comments STAIN ACCEPTABILITY (test code = STN ACCEPTABLE) CABOT RINGS (test code = CAB) MORPHOLOGY COMMENT (test code = MOC) PLATELET ESTIMATE (test code = PLTEST) PLATELET MORPHOLOGY (test code = PLTMORPH) CARDIAC [id number] 08:40:0044[facility] [id number] 08:40:000.03[facility] [id number] 08:40:002.0[facility] [id number] 08:40:0091[facility] [id number] 08:40:007.9 [facility] [id number] 08:40:0011.6[facility] PANEL 2018-03-26 08:40:0025[facility]annCHE[facility] [id number] 08:40:80792Ieyydnjc HermannCHEM [id number] 08:40:0011[facility] [id number] 08:40:0087[facility] [id number] 08:40:003.6[facility] [id number] 08:40:07510Fyxipxeg HermannCHEM [id number] 08:40:000.85 [facility] [id number] 04:27:000.05[facility] [id number] 04:27:0040[facility] [id number] 20:50:00 208[facility]ARD[facility] [id number] 20:50:00<1.6[facility] [id number] 20:50:0032[facility]CARD[facility]AC [id number] 20:50:00< 0.5[facility] [id number] 20:50:000.03[facility]CHE[facility] [id number] 20:50:003.3[facility]CHE[facility] [id number] 20:50:002.0 [facility] [id number] 20:50:0089[facility]CHE[facility] PANEL 2018-03-25 20:50:16505Cssqsvnx HermannCHEM [id number] 20:50:000.3[facility] [id number] 20:50:0019[facility]CHE[facility] [id number] 20:50:004.1[facility]CHE[facility] [id number] 20:50:00* Test Item Value Reference Range Interpretation Comments A/G Ratio (test code = A/G Ratio) 1.0 1 0.7-1.6 [facility] RGGHD2201-78-44 20:50:0023[facility] HermannCHEM PANEL 2018-03-25 20:50:00* Test Item Value Reference Range Interpretation Comments B/C Ratio (test code = B/C Ratio) 22 1 -25 [facility] EAUQT6471-36-85 20:50:0022[facility]annCHEM PANEL 2018-03-25 20:50:0018.0[facility]annCHEM OXWNT5650-36-34 20:50:008.9[facility]annCHEM UECDT5357-65-86 20:50:99112Sjfmlvsf HermannCHEM UHTHY4701-84-53 20:50:31653Lavbgbig HermannCHEM QCKMQ0352-31-94 20:50:003.0[facility]annCHEM PUFHP0101-60-49 20:50:008.2[facility]annCHEM VSBIJ8139-63-60 20:50:004.1 [facility] GFXMQ0320-32-84 20:50:0019[facility]annCHEM PANEL 2018-03-25 20:50:000.87[facility]annCHEM GZANH7663-52-47 20:50:38930Aqvxrgfg RwhojggBAOSBLXEOI7354-03-97 20:50:003.3[facility] EpiobhlAPJVOXXCOY4690-91-03 20:50:000.6[facility] DmtgwhoMAFZJASIQS2200-54-27 20:50:002.4[facility]esh XMUACAEHXR0416-89-44 20:50:000.4[facility] BnxdipuEEFDJOBLGZ2217-01-93 20:50:00 39.2[facility] YmywvjfRKTROCJWNX7302-30-48 20:50:007.2[facility] HermannHEMATOLOGY 2018-03-25 20:50:000.2[facility] JfgdnstARCBRVLUEQ6252-40-98 20:50:0052.8[facility] AextyieKHBKIGTDSM5139-53-54 20:50:00* Test Item Value Reference Range Interpretation Comments PTT (test code = PTT) 27.4 s 22.9-35.8 [facility] JonvwaqKTVASBFEJM6172-79-43 20:50:00* Test Item Value Reference Range Interpretation Comments PT (test code = PT) 12.4 s 12.0-14.7 [facility] SeuuuauJWDHWKTDWZ9316-09-83 20:50:00* Test Item Value Reference Range Interpretation Comments INR (test code = INR) 0.92 1 0.85-1.17 [facility] MugjieeJWEKXOYIGK6392-62-30 20:50:04782Imydbmws HermannHEMATOLOGY 2018-03-25 20:50:0034.2[facility] WydyvnyNJGHXVXWUI3062-29-11 20:50:00* Test Item Value Reference Range Interpretation Comments MCH (test code = MCH) 26.7 pg 27.0-31.0 [facility]dbqgyfMNBYZTOPMV9337-68-29 20:50:0083.5[facility] HermannHEMATOLOGY 2018-03-25 20:50:006.2[facility] AjxwjynHUBTQJZNMW5555-78-11 20:50:004.09[facility] UvditlsOEOWAOCBWU2309-58-42 20:50:008.3[facility] IslbmtrBSANWVFGVC5252-97-29 20:50:0018.1[facility] MvgdqtiVKMDBJKNPH2489-22-91 20:50:0032.0[facility] [place] PDMGLNCEHQ7331-04-90 20:50:0010.9[facility]annCHEM QPVNI1281-32-39 11:33:00 0.60[facility]annCHEM KRPOR9656-79-28 11:33:26530Cxdtoacg HermannCHEM PANEL 2018-02-19 11:33:0011.1[facility]annCHEM EEXHZ7719-15-40 11:33:67040Cfaopagl HermannCHEM GQTMF7419-39-20 11:33:004.1[facility]annCHEM HEILZ3716-45-07 11:33:007.4[facility]annCHEM YNXFX0452-72-44 11:33:01462Tfnrvpid HermannCHEM KULDD2540-96-00 11:33:0027[facility]annCHEM EGXLR1691-22-26 11:33:59630 [facility]annCHE[facility] LODRV3902-17-55 11:33:009[facility] HermannELECTROLYTES 2018-02-19 02:25:004.1[facility] HermannCARDIAC MGGCXZC6499-63-92 14:15:0014 [facility]annCARDIAC WCHFNPU2938-61-12 14:15:00<1.0[facility] HermannCARDIAC OUJVCTR2619-95-85 14:15:000.03[facility] RdjxbieEGLJXKWVRDIC8429-15-55 14:10:001.9 [facility]annCARDIAC TVRJPKR1585-56-52 10:10:00<0.02[facility]annCARDIAC WJXCFKC7338-75-96 10:10:0028[facility]annCARDIAC TGEZIJC7883-98-45 05:35:00< 1.0[facility] HermannCARDIAC LBCHWQC9247-20-00 05:35:00<0.02[facility] [place] CARDIAC JKVAEGO7791-21-25 05:35:0031[facility]annCHEM BHEPG3872-58-24 05:35:002.1[facility]annCHEM CTQZN9727-09-77 05:35:0057[facility]annCHEM WIJGP3963-49-52 05:35:009.9[facility] HermannCHEM VYYES6013-18-09 05:35:007.7 [facility]annCHEM VQNUX7854-54-42 05:35:51694Gjbnbykv HermannCHEM PANEL 2018-02-18 05:35:0027[facility] HermannCHEM BCVRT7358-52-57 05:35:94769Hrboefza HermannCHEM RQOQP3958-75-20 05:35:009[facility] HermannCHEM THREE0593-75-11 05:35:000.69[facility] HermannCHEM QFBEI0332-09-88 05:35:41015Ncktxmfz [place] QMNSMQSWDZ0007-36-11 05:35:000.1[facility] DpsxatoDQJQIMSQTY8236-98-66 05:35:000.6 [facility] NaedfpiLOYFXOBJPE3934-06-47 05:35:0037.2[facility] HermannHEMATOLOGY 2018-02-18 05:35:0046.3[facility] HlbnolxXRTCBYJOPL6031-18-32 05:35:002.2[facility] NnmblvvYOKPOMQYRH1927-29-29 05:35:000.9[facility] FzftblcMPBEBMIFRE4695-78-22 05:35:0013.4[facility] DbaeoiuDQGCQDUDLT9207-76-03 05:35:001.9[facility]esh ROENVEWLIT5315-26-71 05:35:001.5[facility] PtpvjpcDJJDCLUAZH9070-89-03 05:35:00 28.3[facility] HupuxiqDZBHQXMSST5422-57-74 05:35:0083.8[facility] HermannHEMATOLOGY 2018-02-18 05:35:0032.4[facility] KspcqouYVCAIBEEBU8647-56-77 05:35:75332Gnzunrgs QlooileHHDTYAKHIA6380-57-34 05:35:0018.8[facility] VsujckbSQZUMIPFYG1342-64-25 05:35:00* Test Item Value Reference Range Interpretation Comments MCH (test code = MCH) 27.2 pg 27.0-31.0 [facility] TaglfhxVEGHKMCZQI2895-44-99 05:35:009.4[facility] HermannHEMATOLOGY 2018-02-18 05:35:004.1[facility] EpawrgfBWBCFMIPRT9520-84-86 05:35:003.38[facility] JdmvjcbZMRAMHFNFG4589-87-92 05:35:009.2[facility] HermannCARDIAC LPYOPZT6114-11-26 21:50:00<0.5[facility] HermannCARDIAC HWZPBDM9943-58-79 21:50:00<1.7[facility] JhhdfclOZANWNYLHOUV3951-48-66 21:50:0026[facility] YrhemnaZYTOYJEGVBQY8133-28-10 21:50:007.3[facility] NvhzscoYDJRGSWWSBWL2632-22-93 21:50:008.6[facility] UUXMCQWOFTSH6972-32-71 21:50:003.5[facility] LoufwjyGBZZKNZYTQKO0478-66-95 21:50:0015[facility] BofegwtQMYYOVAZGZWA7606-01-93 21:50:97343Nylsqafp Rajesh DWPJBTOLXVAN4485-38-66 21:50:000.4[facility] GnztohuXDVEECZABIBF1680-27-38 21:50:0019[facility] HjaeonoHJEGSEENFZMC3856-03-49 21:50:00* Test Item Value Reference Range Interpretation Comments B/C Ratio (test code = B/C Ratio) 12 1 6-25 [facility] BwduuvkPPKSBRSGZHLN7915-77-66 21:50:003.8[facility] HermannELECTROLYTES 2018-02-17 21:50:0014.2[facility] JagszlwSLQXWAIQORUZ5944-73-70 21:50:21039 [facility] GafmvzpEIJUYFAVNTFJ7706-18-12 21:50:00* Test Item Value Reference Range Interpretation Comments A/G Ratio (test code = A/G Ratio) 0.9 1 0.7-1.6 [facility] KfhwsfbDEJLTQDMNFVL8449-23-43 21:50:61324Vumoenee HermannELECTROLYTES 2018-02-17 21:50:009[facility] GnebbuuZGNYUMUBKJRL0681-82-81 21:50:000.73[facility] FngjcoqBAFKHNYYTGNI4530-08-31 21:50:87452Zpdnvqze QqrwbnrJHHWZTWNGBQZ5382-82-89 21:50:57495Whqeznmk QjgudbtAEDVPIOSCX6685-22-52 21:50:0083.2[facility] JXDIAZJAFQ2763-71-12 21:50:62698Rlmmbcug GvcwzanJBGYUKTSGH9258-44-66 21:50:00* Test Item Value Reference Range Interpretation Comments MCH (test code = MCH) 26.9 pg 27.0-31.0 [facility] IofppdxBLAALKIDPP7091-70-35 21:50:0032.3[facility] HermannHEMATOLOGY 2018-02-17 21:50:0018.6[facility] OclltfcMVDTYWJFZW4480-86-23 21:50:009.8[facility] GnsutmdMSTFNHJVPB8441-01-29 21:50:0030.4[facility] IfezqafBNPPPIFZOR9111-76-91 21:50:003.3[facility] UvebtonBGRPLQTKWT9932-62-92 21:50:003.66[facility] MFGJNOMHPO1089-64-96 21:50:008.7[facility] XxvcswkXCRHEXEYLZ0755-59-87 21:50:000.1 [facility] GvyfcdgRSTCFXEOEF2554-96-24 21:50:000.4[facility] HermannHEMATOLOGY 2018-02-17 21:50:001.4[facility] DcxnsiwATNWSQUPVB1382-21-73 21:50:0044.3[facility] XsdrgsgLCOIKFRUTP2115-29-58 21:50:0042.1[facility] BeicfdsQYBTRFPCLP3939-82-14 21:50:001.6[facility] BhzkxlfVSFWCETCRE2789-97-48 21:50:001.5[facility] IQIBESXRDS0312-17-70 21:50:0011.1[facility] ViaikuwZLBXOOXESF1458-63-44 21:50:00 0.9[facility] HermannCARDIAC IHIJEER2739-95-79 11:00:00<0.02[facility]esh RNHLDSHYWE6951-46-26 11:00:009.0[facility] FcayjqqIGTLHOCSXB6804-32-73 11:00:24374 [facility] QvzazwyGUBLHLDKLQ6645-99-65 11:00:0015.3[facility] HermannHEMATOLOGY 2017-07-12 11:00:00* Test Item Value Reference Range Interpretation Comments MCH (test code = MCH) 30.0 pg 27.0-31.0 [facility] CrkuxcsGHZLZOMPEK3650-54-80 11:00:0033.3[facility] HermannHEMATOLOGY 2017-07-12 11:00:0032.5[facility] PlqarpdNVQHJBRXZB5434-20-87 11:00:0090.0[facility] FwvrjosQNQGDZTRVX6047-02-75 11:00:0010.8[facility] FzfbpalJPMYLYETAM4438-53-80 11:00:004.3[facility] EelzdeqIHVCCDYCGL4917-38-55 11:00:003.61[facility]esh TMISIIPXIZ1512-31-39 11:00:000.4[facility] JgjpbdoGSTJIHVAOD4844-92-32 11:00:000.1 [facility] TsiribrQPMIFJYKOE6217-44-57 11:00:002.1[facility] HermannHEMATOLOGY 2017-07-12 11:00:008.8[facility] RsqgghiINYRGQXSWM7049-68-06 11:00:001.2[facility] HzhxlveMYBFHFEPWS4714-11-97 11:00:001.7[facility] LaoxhxpCKWVPBWDMC7158-94-74 11:00:000.7[facility] LgmufriSHOZHTYNCS8577-60-35 11:00:0040.6[facility]esh LFJWKHYBQR9995-88-28 11:00:0048.7[facility] HermannCARDIAC QDBAIMH1948-73-99 06:30:00<0.02[facility] HermannCHEM TESBJ2711-80-10 06:30:003.4[facility] CHEM BZEMA0349-90-98 06:30:001.9[facility] HermannCHEM LFVWV6564-00-70 06:30:03840 [facility] HermannCHEM FHPXX5408-76-51 06:30:0010[facility] HermannCHEM PANEL 2017-07-12 06:30:003.2[facility] HermannCHEM UKZSA9669-67-65 06:30:0024[facility] HermannCHEM CIQIJ2341-23-59 06:30:000.9[facility] HermannCHEM XJDTQ9365-37-28 06:30:0011[facility] HermannCHEM VWUCA4013-33-63 06:30:003.4[facility] HermannCHEM FIASZ9289-30-88 06:30:0095[facility]annCHEM WHWDE7212-11-75 06:30:000.3 [facility] HermannCHEM RCMVR1271-55-42 06:30:0011.5[facility] HermannCHEM PANEL 2017-07-12 06:30:93742Afeqfirj HermannCHEM STMOB4520-55-06 06:30:006.6[facility] HermannCHEM LLBNK3928-16-63 06:30:000.61[facility] HermannCHEM RTZLW6153-93-52 06:30:007[facility] HermannCHEM AUKTH5577-34-61 06:30:86025Jdnqbejg HermannCHEM XRIPH3036-46-80 06:30:0025[facility] HermannCHEM YZOZH9039-02-87 06:30:12646 [facility]annCHEM JVFDD7306-07-65 06:30:008.3[facility] HermannCHEM PANEL 2017-07-12 06:30:003.5[facility] FrgdfomOZGPLSTJWOPU2420-92-32 21:22:004.0[facility] HermannCHEM AXCUI3763-26-55 08:39:01784Niaszbvz HermannCHEM AOHSD0499-07-03 08:39:000.3[facility] HermannCHEM MGCTJ3503-86-98 08:39:0088[facility] HermannCHEM UVXWY6324-68-04 08:39:0012[facility] HermannCHEM GFKEI1620-85-58 08:39:42160 [facility]annCHEM YGJPE0647-20-03 08:39:000.69[facility] HermannCHEM PANEL 2017-05-19 08:39:006[facility] HermannCHEM FUVZT2456-34-75 08:39:0016[facility] HermannCHEM QXSYH2126-93-79 08:39:002.9[facility] HermannCHEM SXWOF5522-30-07 08:39:006.2[facility] HermannCHEM FYAMV3542-56-66 08:39:008.9[facility] HermannCHEM HVAAH4604-89-19 08:39:000.9[facility] HermannCHEM EVVKN2594-18-55 08:39:003.3 [facility] HermannCHEM MTNRF5312-99-52 08:39:009[facility] HermannCHEM PANEL 2017-05-19 08:39:0028[facility] HermannCHEM IQWBA2872-28-69 08:39:007.7[facility] HermannCHEM MRTGI9256-87-95 08:39:84550Juxqmpuw HermannCHEM DQVNI3394-58-35 08:39:62423Jaxlfdzl HermannCHEM TMPBK7251-55-89 08:39:002.9[facility] HermannCHEM HOQGF5238-57-44 08:39:002.5[facility] HermannCHEM MORHG3324-45-31 08:39:003.7 [facility] HermannCHEM CCJNX8576-91-07 08:39:0036[facility] HermannCHEM PANEL 2017-05-19 08:39:67491Soqmjpmg DhnumhkZSUFJNFPFS2540-26-68 08:39:003.45[facility] DszyomqEGHBGNPSOV4580-79-84 08:39:0010.2[facility] IvprqqoRYNOZDWIUD1665-53-37 08:39:00* Test Item Value Reference Range Interpretation Comments MCH (test code = MCH) 29.5 pg 27.0-31.0 [facility] RkgvvhyBBFEGJHYQU3951-23-18 08:39:003.8[facility] HermannHEMATOLOGY 2017-05-19 08:39:74945Anrlozgc LadnrvsWKWAZVILGI9621-12-10 08:39:009.8[facility] YrblsucDPACZWVQOS8058-18-36 08:39:0033.4[facility] GqxgzgfPWYDXSECDF4823-76-89 08:39:0017.3[facility] LjjdnrcSECUKDYTKM7546-34-93 08:39:0030.5[facility]esh VKCCANVURB3107-44-37 08:39:0088.4[facility] IgxqtghOKAFFVKNCB2048-07-62 08:39:00 9.8[facility] QoazmzdTRXCDFNZRD7910-17-33 08:39:001.4[facility] HermannHEMATOLOGY 2017-05-19 08:39:001.9[facility] KklzinbYYRAYVTSOD4948-37-28 08:39:000.4[facility] ZiybrgtROCTJMNBGF3472-24-83 08:39:000.1[facility] UemapqrJRZKIZQYKF9346-50-95 08:39:0037.7[facility] DcuivzlILGFZSCZCR0063-96-16 08:39:002.0[facility] JEMADCICTE4145-75-23 08:39:001.1[facility] HhahfmdMCWZTCJVAY6803-08-40 08:39:00 49.4[facility] HermannCHEM MRJED2609-95-31 23:59:02636Hbktjwiq HermannCHEM PANEL 2017-05-18 23:59:000.9[facility] HermannCHEM RDLBI0543-28-53 23:59:0017[facility] HermannCHEM NQHQD7881-94-82 23:59:003.3[facility] HermannCHEM FPDMS9671-17-16 23:59:003.5[facility] HermannCHEM EUHST7435-17-60 23:59:009[facility] HermannCHEM XWNQF9784-28-46 23:59:006.8[facility] HermannCHEM DJDYD7265-79-68 23:59:0098 [facility] HermannCHEM DRHDY0334-06-83 23:59:000.1[facility] HermannCHEM PANEL 2017-05-18 23:59:000.1[facility] HermannCHEM ZRZFL8040-49-84 23:59:000.2[facility] HermannCHEM GAULM0778-59-93 23:59:003.2[facility] HermannCHEM NLGRQ5125-14-30 23:59:002.1[facility] SlekhlkHMAHABTZTERF8712-52-01 23:59:009.2[facility] TFMOIMDUJQKU7637-90-41 23:59:81014Cxnerrrg LuorxtbVGSNIKGWAWWB2773-30-28 23:59:007[facility] SasuowyLFTHKRZZOBID1827-02-50 23:59:0098[facility] WLSRYUZJKWOJ4612-05-72 23:59:0026[facility] WmwjqmwHKJEMOAOBRYI4531-83-39 23:59:00 111[facility] SwzkfelXISWTMFXGSKC5999-69-92 23:59:003.2[facility] KCBCUUXWUQSK2113-68-91 23:59:70648Yxjlvlem XwvgayiLFZALIFZSYGR1953-65-37 23:59:000.65[facility] XkkoycpLCWFGQHEKZON2604-59-50 23:59:008.2[facility] OUAWEUMJYP3590-01-90 23:59:67991Uhtvlmjf UaqazccXIBLZXPTQV0902-38-28 23:59:00 17.8[facility] EklalmfRYDFIZJKKN7596-58-62 23:59:009.1[facility] HermannHEMATOLOGY 2017-05-18 23:59:0033.0[facility] HkyefdvKZAXYREVMG0135-76-06 23:59:00* Test Item Value Reference Range Interpretation Comments MCH (test code = MCH) 29.3 pg 27.0-31.0 [facility] MnujabnVIHGJIUUZP9746-67-94 23:59:0088.6[facility] HermannHEMATOLOGY 2017-05-18 23:59:0033.5[facility] YxfwtwzELMNFPHDQC9377-41-99 23:59:003.78[facility] VljhsvyRIYARUKFHP7216-57-04 23:59:004.9[facility] FhyvtgmJFAIPTQHRH1353-92-23 23:59:0011.1[facility] KflfothPECTJLNKLZ4016-07-60 23:59:000.9[facility] KSZTVUVNST1076-64-38 23:59:0046.3[facility] UuoxfdhYOGLCEJVKY4652-63-92 23:59:00 10.0[facility] KxcuaniDDHYQWPRDN5970-40-22 23:59:0042.0[facility] HermannHEMATOLOGY 2017-05-18 23:59:000.8[facility] OuumaboEAUUWVAFCU5678-08-83 23:59:002.1[facility] YmoietcIYSSXFTFJB8224-30-20 23:59:002.3[facility] IqezkzeYHPLBBATJP6381-40-61 23:59:000.5[facility] HermannANEMIA MSFPR1189-78-57 10:45:0012.1[facility] ANEMIA PBAAP9366-51-61 10:45:0063[facility] HermannANEMIA JGPHO7141-04-45 10:45:00 450[facility] HermannANEMIA CURTJ5800-98-05 10:45:92453Dmmmysad HermannANEMIA ZNKIU6880-37-12 10:45:0013[facility] HermannANEMIA TEJFU5601-08-72 10:45:63133 [facility] HermannANEMIA XBPXZ9143-27-95 10:45:0029[facility] HermannHEMATOLOGY 2017-04-04 10:45:001.7[facility] OqxffeaHZNPXWSYTO6558-46-69 10:45:54436Zjesbpbd HermannCHEM GQQML0788-70-11 17:51:073.1[facility] HermannCHEM ZCABB2511-78-00 17:51:071.9[facility] HermannCHEM WWONA1632-09-89 17:51:0715[facility] HermannCHEM CXOBQ3207-81-03 17:51:75181Ltmatzit HermannCHEM YBBET7900-69-09 17:51:070.74 [facility] HermannCHEM EJLXZ1840-62-69 17:51:52338Peearuba HermannCHEM PANEL 2017-04-03 17:51:0725[facility] HermannCHEM THPJU0812-29-19 17:51:073.1[facility] HermannCHEM FWWNO3281-16-69 17:51:07680Lfseitrg HermannCHEM EIGEP2697-84-11 17:51:077.6[facility] HermannCHEM IRFDY8568-73-99 17:51:079.1[facility] HermannCHEM CGVNI4583-83-72 17:51:53888Naojvnpg HermannCHEM XCWGZ4506-64-99 11:18:002.1 [facility] HermannCHEM YTAGG7186-68-83 11:18:00234Laloclhr HermannCHEM PANEL 2017-04-02 11:18:13257Hbkzrrdl HermannCHEM KIUFD4783-16-28 11:18:0013[facility] HermannCHEM WZYCP8908-33-30 11:18:000.62[facility] HermannCHEM RLTJE8189-70-82 11:18:74837Qhgbjlij HermannCHEM DZJOP7361-53-92 11:18:0012.9[facility] HermannCHEM LURVP8877-81-05 11:18:0024[facility] HermannCHEM NYJDT0165-20-05 11:18:008.6 [facility] HermannCHEM AINUW0218-67-35 11:18:002.9[facility] HermannCHEM PANEL 2017-04-02 11:18:40519Kfbahkke HaaukliHVUHMYPEMY6801-04-99 11:18:009.7[facility] XgmdhsoFQQBSXPHWK9717-18-57 11:18:000.2[facility] JuokxqdLQRELCTLMF9737-45-42 11:18:0070.8[facility] VjjerlrRIIMVLNMDG7841-23-36 11:18:0019.3[facility] GRPANFOBSX3202-79-72 11:18:003.9[facility] HnmgqtvDPHAUAGERE4896-70-26 11:18:001.1 [facility] WhxggawCDJJYOKLLN4792-38-70 11:18:000.5[facility] HermannHEMATOLOGY 2017-04-02 11:18:32971Zugwofcz AhynofxXRCVJUAFWB6556-34-17 11:18:00* Test Item Value Reference Range Interpretation Comments MCH (test code = MCH) 28.4 pg 27.0-31.0 [facility] WzqkccmSFPGSVFZDW5547-18-34 11:18:0086.3[facility] HermannHEMATOLOGY 2017-04-02 11:18:0021.6[facility] AlfbxmwJUJXHSETZY6973-96-43 11:18:0033.0[facility] TajnzsrRBGTIWOURJ0872-42-43 11:18:005.5[facility] XxnoobsWXIMHPNSFO8062-63-74 11:18:008.7[facility] IvgotaqJCPIADQMVH2404-24-86 11:18:0010.2[facility] VGYAJYAQOL5166-95-98 11:18:003.60[facility] SgvgqkiQDRCXCQBHC6344-91-68 11:18:00 31.1[facility] MdfhpysPJLXGKAOUMGC2490-43-25 09:30:0011.1[facility] TKXTJARLQBZZ8020-84-89 09:30:009[facility] NqimhglGOTJAGJZGIGC7988-20-53 09:30:00 126[facility] LhnzvfjHBQAJZYSFPWH4310-16-96 09:30:93933Pxfijggc Rajesh WDPQHVFLQWPI3983-75-02 09:30:0027[facility] XvapoxqSQPJGNQUDWUP2046-12-87 09:30:00 139[facility] XpewzplTRCPEQIUVKLQ3118-72-80 09:30:000.60[facility] MJJWXADMCCMW0612-14-20 09:30:89719Tqgppyuf NfhexkkAHKZRMUZJXHR2623-53-83 09:30:008.7[facility] DbadueeGHHCAUTJVEQS8869-57-37 09:30:003.1[facility] NHXWIJSWSI6949-51-81 09:30:0011.4[facility] ZuldshuVULRXKEWNV9092-92-62 09:30:00 20.6[facility] SpxwzfwIGLVMWLKBZ0212-93-30 09:30:004.05[facility] HermannHEMATOLOGY 2017-04-01 09:30:008.4[facility] KbrujoiCMPYYYAGUR4374-73-41 09:30:0033.0[facility] CsdkyomXZARZVQBRN9812-70-17 09:30:00* Test Item Value Reference Range Interpretation Comments MCH (test code = MCH) 28.0 pg 27.0-31.0 [facility] MwtpgxzOSCQXAEJIT9674-46-85 09:30:0085.0[facility] HermannHEMATOLOGY 2017-04-01 09:30:0034.4[facility] YknmkhdFNZKDEWZUZ0018-08-18 09:30:13087Ebvwxood AppaqxxTUAZTMHNIG7858-36-07 09:30:008.3[facility] NodyrtgAOKPKEYFZP6473-22-59 09:30:0084.7[facility] HaezhmkBQDQETDQMV6594-24-43 09:30:000.5[facility] WCBWGSQGWZ8979-64-98 09:30:000.8[facility] KdvyxelYQLESXUQCZ3997-67-07 09:30:007.1 [facility] CugsmqbDXWEMGQHED7592-94-05 09:30:000.2[facility] HermannHEMATOLOGY 2017-04-01 09:30:006.1[facility] XmxpttiDIWLRCMYQW5761-15-29 09:30:009.0[facility] HermannCHEM XNTCX9873-38-75 19:56:000.9[facility] HermannCHEM ZOIQO8772-75-45 19:56:003.8[facility] HermannCHEM XRAOF8492-44-24 19:56:0012.1[facility] HermannCHEM ZWIWE2499-81-84 19:56:007[facility] HermannCHEM XWFKZ3632-69-23 19:56:98128 [facility] HermannCHEM HQHGH4039-59-45 19:56:0021[facility] HermannCHEM PANEL 2016-12-29 19:56:003.3[facility] HermannCHEM XXQUI5299-45-09 19:56:45715Ikzqleba HermannCHEM EFKAQ0287-28-66 19:56:0016[facility] HermannCHEM VHOCR2475-37-98 19:56:000.4[facility] HermannCHEM UGDAE2132-65-77 19:56:007.9[facility] HermannCHEM AVUXC1177-48-23 19:56:007.1[facility] HermannCHEM SYQGL5519-18-42 19:56:004.1 [facility] HermannCHEM TJYPF4542-04-38 19:56:96738Vqglfcxc HermannCHEM PANEL 2016-12-29 19:56:27226Njmfxbah HermannCHEM NIFLR4930-34-91 19:56:0027[facility] HermannCHEM JUPPL5063-91-94 19:56:000.57[facility] HermannCHEM RFCRW3450-12-57 19:56:004[facility] HermannCHEM TZUQH9336-62-09 19:56:08798Szabbuth HermannCHEM QKOAE9025-36-16 19:56:06182Nlpbpfvf HermannCHEM GKRAL2692-64-48 19:56:0014.1 [facility] HermannCHEM OSYYB9247-95-66 19:56:000.56[facility] HermannCHEM PANEL 2016-12-29 19:56:005[facility] HermannCHEM QKBMP7728-43-18 19:56:62980Zaoiykxj HermannCHEM VEKZG2831-93-17 19:56:93473Mmwrkgzw HermannCHEM GRYNM8484-30-52 19:56:004.1[facility] HermannCHEM BUBXH0065-01-89 19:56:29898Uwfzpqme HermannCHEM IFVJL7493-47-68 19:56:008.3[facility] HermannCHEM HLLZB9007-29-54 19:56:0025 [facility] SxrpxncQNNUPQJEQH6415-77-34 19:56:0083.6[facility] HermannHEMATOLOGY 2016-12-29 19:56:0032.1[facility] DmjpnmyFHMRXVDVFH0334-47-70 19:56:0034.4[facility] AncrazkMAYIBVXDGV1324-95-12 19:56:00* Test Item Value Reference Range Interpretation Comments MCH (test code = MCH) 26.8 pg 27.0-31.0 [facility] IzkgijoDUJYQQKACX7194-79-32 19:56:0016.6[facility] HermannHEMATOLOGY 2016-12-29 19:56:004.7[facility] QxdrpemCHQICDHVUE1620-17-77 19:56:004.12[facility] WoxsaonWDLHOGIOAE5005-54-43 19:56:008.7[facility] XoirzciOEDLACBGIE8345-80-04 19:56:56856Okrhzgrp IvzqmrvFWCWPTIGXE0767-12-71 19:56:0011.0[facility] KIRIYLBKYG2712-01-07 19:56:000.4[facility] MjbdaipIYTCEQQVHD3551-66-16 19:56:000.2 [facility] ZttjyvqLGDWBUEBBP0216-93-91 19:56:001.8[facility] HermannHEMATOLOGY 2016-12-29 19:56:0045.6[facility] CtcnnpfNOFLSBPKOX0939-13-50 19:56:009.5[facility] QbbskmeGLGBIPYPOG1587-01-25 19:56:0038.9[facility] UidxnyhSPMCLSQBTA1731-81-23 19:56:005.0[facility] XstbztuNDBWBDBRCY8209-80-20 19:56:001.0[facility] ZQVUOCOFVP9310-04-25 19:56:002.2[facility] HermannCARDIAC RTZQAGS4871-39-50 19:12:00<0.02[facility] HermannCARDIAC UCMCKGV2993-16-71 19:12:0031[facility] HermannCARDIAC CECRKJJ0540-32-86 14:41:00<0.02[facility] HermannCARDIAC ENZYMES 2016-12-28 14:41:0028[facility] HermannCARDIAC HNMJVYS4100-45-47 10:02:00<0.02 [facility] HermannCARDIAC IEXTGDM5662-27-64 10:02:0023[facility] HermannCHEM PANEL 2016-12-28 10:02:002.0[facility] HermannCHEM KPKVM7043-45-67 10:02:003.5[facility] HermannCHEM PNYAE6886-48-06 10:02:12291Iqhgrfhj HermannCHEM ZBTPD5924-99-63 10:02:000.3[facility] HermannCHEM OTKAE2984-43-13 10:02:000.45[facility] HermannCHEM CPDHQ7132-63-73 10:02:0010[facility] HermannCHEM GTHAA3400-67-07 10:02:37620 [facility] HermannCHEM TXOHW6575-79-14 10:02:01351Pneutujf HermannCHEM PANEL 2016-12-28 10:02:0013[facility] HermannCHEM EGLNI4662-30-56 10:02:0016[facility] HermannCHEM UGPRS2844-80-47 10:02:003.0[facility] HermannCHEM SGVUK1352-69-56 10:02:006.7[facility] HermannCHEM HBREV3958-27-08 10:02:008.4[facility] HermannCHEM KJZRH8075-42-50 10:02:0027[facility] HermannCHEM OVNGQ3977-55-86 10:02:69753 [facility] HermannCHEM TZFND7656-71-77 10:02:003.2[facility] HermannCHEM PANEL 2016-12-28 10:02:16153Iyjgfbng HermannCHEM PEAHJ5429-81-33 10:02:000.8[facility] HermannCHEM SIBQD5316-69-35 10:02:0022[facility] HermannCHEM OUUML0812-02-77 10:02:003.7[facility] HermannCHEM ZQLII1989-27-96 10:02:0010.2[facility] QDFXBGKLLL5598-89-63 10:02:00* Test Item Value Reference Range Interpretation Comments PTT (test code = PTT) 25.9 s 22.9-35.8 [facility] JfeajjoLWWRTIWZEH5649-88-06 10:02:00* Test Item Value Reference Range Interpretation Comments PT (test code = PT) 12.8 s 12.0-14.7 [facility] LyunxgwORZZEUMMJN6277-30-41 10:02:000.94[facility] HermannHEMATOLOGY 2016-12-28 10:02:004.8[facility] DajjvueCVRIUZLPIY3626-33-35 10:02:00* Test Item Value Reference Range Interpretation Comments MCH (test code = MCH) 26.9 pg 27.0-31.0 [facility] YuqzcmkYANXLHLKDF8288-78-13 10:02:0032.8[facility] HermannHEMATOLOGY 2016-12-28 10:02:008.7[facility] HcnlavxOAGVXPUCVP9065-39-25 10:02:27358Amrndooz UpxojqvFBXKHCCMQX9318-07-02 10:02:0016.7[facility] NwkhmifLRMGAHCNXK3453-91-21 10:02:003.81[facility] IzckwmhNPFTGWKZNA7969-83-13 10:02:0082.1[facility] IOVJEYVCXZ8271-94-36 10:02:0031.3[facility] PydpsjaUQRYZWSXJV4708-91-17 10:02:00 10.3[facility] UeycgsyGDCOVLWOLR7571-69-87 10:02:000.6[facility] 2016-12-28 10:02:000.1[facility] DrpeezqEYVKWKHEOD6160-60-93 10:02:002.2[facility] XzeswdvRFJPGKMQHV4323-74-36 10:02:001.9[facility] HimmcofFDHIZGMMNW8015-29-21 10:02:002.7[facility] IfahgpxUCCATZBRFY6457-99-19 10:02:0011.6[facility] [place] FPMSWPFYJG9471-29-41 10:02:0045.9[facility] IehprrcBZTWRHTZZX9124-45-02 10:02:00 0.8[facility] MhiojppXTMAODAENA5225-82-29 10:02:0039.0[facility] HUCYR4717-40-05 10:02:004[facility] KVUFA3736-82-57 10:02:00Clear (12/28/16 5:02 AM)[facility] ABJTF1191-55-42 10:02:001.047[facility] WOUVA8695-55-17 10:02:00Trace *ABN*(12/28/16 5:02 AM)[facility] DOEMF7084-46-67 10:02:003[facility] STOOL 2016-12-28 10:02:00Negative (12/28/16 5:02 AM)[facility] ST[facility]OL 2016-12-28 10:02:00Negative *NA*(12/28/16 5:02 AM)[facility] 2016-12-28 10:02:006.0[facility] EKLFE6458-54-24 10:02:00Negative (12/28/16 5:02 AM)[facility] CJFDN9550-61-67 10:02:002.0[facility] AND AQWKE2512-36-24 10:02:00Yellow *NA*(12/28/16 5:02 AM)Lyndon Mena
--- NOTE | 2020-05-21 19:36 | Emergency Department Note ---
History of Present Illnes History of Present Illness Chief Complaint: Back Pain History of Present Illness This is a 54 year old female hx of chronic abd pain due to bariatric surgeries, under pain management c/o same abd for 3 days, nauseated, here for pain meds to "control the symptoms". She declines work up for abdominal pain Historian: Patient Arrival Mode: Car Trap Puller Required: No Onset (how long ago): day(s) Radiation: Reports back Onset quality: gradual Duration (how long): day(s) Timing of current episode: intermittent Progression: waxing and waning Relieving factors: none Exacerbating factors: none Associated symptoms: Reports nausea/vomiting Treatments prior to arrival: none Previous service: tests performed (she has had many CT scans) Past Medical/Family History Physician Review I have reviewed the patient's past medical and family history. Any updates have been documented here. Past Medical History Recent Fever: No Clinical Suspicion of Infectio: No New/Unexplained Change in Ment: No Past Medical History: Hypertension, GERD, Chronic Back Pain Past Surgical History: Cholecysctectomy, Appendectomy, Hysterectomy Other Surgery: LEFT CHEST PORT CERVICAL FUSION GASTRIC BYPASS Social History Smoking Cessation: Never Smoker Counseling Performed: No Alcohol Use: None Any Illegal Drug Use: No Physically hurt or threatened: No Other Any Pre-Existing Lines (PICC,: Yes (LEFT CHEST PORT) Review of Systems Review of Systems Constitutional: Reports no symptoms EENTM: Reports no symptoms Cardiovascular: Reports no symptoms Respiratory: Reports no symptoms Gastrointestinal: Reports as per HPI, Reports abdominal pain, Reports nausea Genitourinary: Reports no symptoms Musculoskeletal: Reports no symptoms Integumentary: Reports no symptoms Neurological: Reports no symptoms Psychological: Reports no symptoms Endocrine: Reports no symptoms Hematological/Lymphatic: Reports no symptoms Physical Exam Related Data Triage Vital Signs Vital Signs Date Time Temp Pulse Resp B/P (MAP) Pulse Ox O2 Delivery O2 Flow Rate FiO2 05/21/20 18:51 98.5 90 16 150/78 100 Room Air Physical Exam CONSTITUTIONAL Constitutional: Present well-developed, Present well-nourished HENT HENT: Present normocephalic, Present atraumatic, Present oropharynx clear/moist, Present nose normal HENT L/R: Present left ext ear normal, Present right ext ear normal EYES Eyes: Reports PERRL, Reports conjunctivae normal NECK Neck: Present ROM normal PULMONARY Pulmonary: Present effort normal, Present breath sounds normal CARDIOVASCULAR Cardiovascular: Present regular rhythm, Present heart sounds normal, Present capillary refill normal, Present normal rate GASTROINTESTINAL Abdominal: Present soft, Present nontender, Present bowel sounds normal GENITOURINARY Genitourinary: Present exam deferred SKIN Skin: Present warm, Present dry MUSCULOSKELETAL Musculoskeletal: Present ROM normal NEUROLOGICAL Neurological: Present alert, Present oriented x 3, Present no gross motor or sensory deficits PSYCHOLOGICAL Psychological: Present mood/affect normal, Present judgement normal Results Laboratory Laboratory recommended but patient declines Assessment & Plan Medical Decision Making MDM chronic abdominal pain with drug seeking behavior Assessment & Plan Final Impression: (1) Abdominal pain Depart Disposition: HOME, SELF-CARE Last Vital Signs Date Time Temp Pulse Resp B/P (MAP) Pulse Ox O2 Delivery O2 Flow Rate FiO2 05/21/20 18:51 98.5 90 16 150/78 100 Room Air Medications in the ED Ondansetron HCl 8 mg ONCE ONCE IV ; Start 05/21/20 at 19:00; Stop 05/21/20 at 19:01; Status UNV Famotidine 20 mg ONCE ONCE IV ; Start 05/21/20 at 19:00; Stop 05/21/20 at 19:01; Status UNV Sodium Chloride 1,000 ml @ 0 mls/hr Q0M STAT IV ; Start 05/21/20 at 18:55; Stop 05/21/20 at 18:56; Status DC Physician Attestation Provider Attestation Patient learned that [facility] does not carry Dilaudid she just left. JATIN GANT MD May 21, 2020 19:35
== END 2020-05-21 19:10 | disposition home or self-care (01) ==
LOC: FSED 19:00
DX: R11.2 Nausea with vomiting, unspecified (principal); I10 Essential (primary) hypertension; K21.9 Gastro-esophageal reflux disease without esophagitis; M54.9 Dorsalgia, unspecified; G89.29 Other chronic pain; Z98.84 Bariatric surgery status
CPT/HCPCS: 99282; J7030